=== PATIENT | male | born 1950 | race Caucasian/White ===

== ENCOUNTER → 2018-11-06 07:22 | Outpatient (CLI) | payer MEDICARE, OTHER, SELFPAY ==
[2017-03-04 06:50] VITALS: BMI 24.5
--- NOTE | 2018-11-06 07:45 | MRI_ITS ---
STUDY: MRA OF THE HEAD WITHOUT CONTRAST REASON FOR EXAM: Male, 67 years old. dizziness x 2 years, concern for basal ganglia hematoma TECHNIQUE: 3-D ckbe-[id number]-htknak (TOF) imaging was performed with MIPs. The study was performed unenhanced. COMPARISON: None. FINDINGS: Normal bilateral petrous carotid arteries. Normal right cavernous carotid artery with a normal supraclinoid bifurcation. Normal left cavernous carotid artery with a normal supraclinoid bifurcation. Normal right A1 segments of the anterior cerebral artery. Normal left A1 segments of the anterior cerebral artery. Normal intact anterior communicating artery (ACOM). Normal bilateral A2 segments of the anterior cerebral arteries. Normal right M1 and M2 segments of the middle cerebral arteries, with a normal M1 bifurcation. Normal left M1 and M2 segments of the middle cerebral arteries, with a normal M1 bifurcation. Normal right posterior communicating artery (PCOM). Normal left posterior communicating artery (PCOM). Normal bilateral vertebral arteries. Normal basilar artery with a normal basilar bifurcation. The visualized bilateral superior cerebellar (SCA) arteries are normal. Normal bilateral P1, P2 and visualized P3 segments of the posterior cerebral arteries. There is no demonstrated aneurysm of the knik of Mccabe. There is no major vessel occlusion or hemodynamically significant stenosis. MRI/MRA Head ONLY without Contrast IMPRESSION: Normal MRA of the head Electronically Signed: Tim Bledsoe MD at 9:05 EDT Tel , Service support ,
--- NOTE | 2018-11-06 07:45 | MRI_ITS ---
STUDY: MRI BRAIN WITHOUT CONTRAST REASON FOR EXAM: Male, 67 years old. dizziness x 2 years, concern for basal ganglia hematoma. TECHNIQUE: Standardized multiplanar fat and water weighted pulse sequences were obtained. COMPARISON: None. FINDINGS: Normal size of the ventricles and extra-axial spaces for the patient's age. Normal white matter tracts of the supratentorial brain. There is 1.4 x 1.6 cm left basal ganglia T1 hyperintense lesion. There is no significant surrounding vasogenic edema. Normal thalami. There is no extra-axial fluid accumulation. Normal flow voids within the major intracranial circulation suggesting patency by spin echo criteria. Normal sella turcica, pituitary gland, infundibular stalk, optic chiasm and hypothalamus. Normal tectal plate and pineal gland. Normal midbrain, jessica and medulla. Normal cerebellum. Normal basal cisterns. There is moderate paranasal sinus disease. MRI/Brain without Contrast IMPRESSION: 1.6 cm left basal ganglia lesion. Leading differential consideration is hematoma. CT follow-up 4-6 weeks is recommended. Electronically Signed: Tim Bledsoe MD at 11:18 EDT Tel , Service support ,
--- NOTE | 2018-11-06 10:02 | CDU_ITS ---
Reason For Study: Dizziness Rt. Velocities/BP Lt. Velocities/BP Prox CCA 96.9/13.4 cm/sec. Prox CCA 77.7/15.1 cm/sec. Mid CCA 87.8/18.6 cm/sec. Mid CCA 79/18.8 cm/sec. Dist CCA 74.7/20 cm/sec. Dist CCA 67.9/16.3 cm/sec. Prox ICA 40.9/15.4 cm/sec. Prox ICA 56/15.4 cm/sec. Mid ICA 60.7/22 cm/sec. Mid ICA 44.7/18.2 cm/sec. Dist ICA 52.1/21.7 cm/sec. Dist ICA 52/20.5 cm/sec. Rt. ICA/CCA = 0.7. Lt. ICA/CCA = 0.7. Prox ECA 79.9/9.5 cm/sec. Prox ECA 72.9/11.3 cm/sec. Rt. Vert. 26.9/7.7 cm/sec. Lt. Vert. 42.1/15.1 cm/sec. Right Extracranial There is intimal thickening but no significant atherosclerotic plaque noted in the right common carotid artery. There is homogeneous, smooth atherosclerotic plaque noted in the right internal carotid artery. There is intimal thickening but no significant atherosclerotic plaque noted in the right external carotid artery. Antegrade flow is noted in the right vertebral artery. Left Extracranial There is intimal thickening but no significant atherosclerotic plaque noted in the left common carotid artery. There is intimal thickening but no significant atherosclerotic plaque noted in the left internal carotid artery. There is intimal thickening but no significant atherosclerotic plaque noted in the left external carotid artery. Antegrade flow is noted in the left vertebral artery. Procedure Carotid Duplex 39869. Exam performed in department. Interpretation Summary There is < 50 % stenosis in the bilateral extracranial ICAs (internal carotid artery) based on velocity criteria. There is antegrade flow in bilateral vertebral arteries. Ordering Physician: Pooja Chung Referring Physician: GIACOMO Herzog M.D. Performed By: Taya Mcgraw RVT
== END ==
PROVIDERS: Family Provider Family Medicine; PCP Family Medicine; Referring Provider Psychiatry & Neurology Neurology; Visit Provider Psychiatry & Neurology Neurology
DX: R42 Dizziness and giddiness (principal); R26.9 Unspecified abnormalities of gait and mobility
CPT/HCPCS: 70544; 70551; 93880

== ENCOUNTER → 2018-11-27 11:22 | Outpatient (CLI) | payer MEDICARE, OTHER, SELFPAY ==
[2017-03-04 06:50] VITALS: BMI 24.5
--- NOTE | 2018-11-27 11:28 | CT_ITS ---
STUDY: CTA OF THE BRAIN REASON FOR EXAM: Male, 67 years old. 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 RADIATION DOSAGE (If Supplied By Facility): CTDIvol = ( 28.57 ) mGy, DLP = ( 1141.60 ) mGycm TECHNIQUE: CT angiography was performed with a multi-detector CT scanner. Data acquisition was obtained from the skull base through the vertex following intravenous administration of IV Isovue 370 100mL. MIP images were reconstructed from the axial data set. Post-processing of the angiographic images was performed, with multiplanar reformation and 3D reconstruction. Individualized dose optimization techniques were used for this CT. COMPARISON: None. FINDINGS: The pre and post contrast CT images of the head were obtained and reviewed. The jessica, medulla, and cerebellum appear to be normal. ?The cerebral hemispheres appear essentially normal. 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 No enhancing masses or lesions are seen. Bone scanning windows were reviewed and show the inner and outer tables of the skull to be intact. The frontal, ethmoid, maxillary, and sphenoid sinuses are normal. Post contrast CTA images were then reviewed. Posterior Cerebral Circulation: The V4 segments of the vertebral arteries are normal bilaterally. The basilar artery is normal. . The anterior superior cerebellar arteries are seen at their origins and are normal. The P1, P2, and P3 segments of the right and left posterior cerebral arteries are normal. Anterior Cerebral Circulation: The cavernous and supraclinoid carotid arteries are normal. The A1 segments of the right and left anterior cerebral arteries are normal. The anterior communicating artery are normal. The M1 segments of the right and left cerebral arteries are normal. The bifurcations of the middle cerebral arteries are normal. Cerebral Venous Circulation: The superior sagital sinus is normal. The inferior sagital sinus is normal. The internal cerebral veins, Great Vein of Jarod, straight sinus, and torcula are normal. The transverse sinuses and sigmoid sinuses are normal. CT/CTA Head W/WO Contrast IMPRESSION: An old infarct is noted involving the head of the cardiac nucleus on the left in this otherwise normal CTA of the head. Electronically Signed: Maikel Ryan, at 13:22 EDT Tel , Service support ,
[2018-11-27 11:40] LABS: CREATININE FINGERSTICK 0.9 mg/dL (0.70-1.30); EGFR FINGERSTICK > 60.0000 mL/min (>60)
== END ==
PROVIDERS: Family Provider Family Medicine; PCP Family Medicine; Referring Provider Psychiatry & Neurology Neurology; Visit Provider Psychiatry & Neurology Neurology
DX: G25.9 Extrapyramidal and movement disorder, unspecified (principal)
CPT/HCPCS: 70496; Q9967

== ENCOUNTER → 2018-12-01 15:25 | Outpatient (CLI) | payer MEDICARE, OTHER, SELFPAY ==
--- NOTE | 2018-12-01 15:28 | MRI_ITS ---
STUDY: MRI BRAIN WITH CONTRAST REASON FOR EXAM: Male, 67 years old. Basal ganglia lesion TECHNIQUE: Standardized multiplanar fat and water weighted pulse sequences were obtained. IV Dotarem 13 was administered for the contrast portion of the examination. COMPARISON: November 15, 2018 FINDINGS: Comparison with prior study again demonstrates presence of focal lesion within the left basal ganglia demonstrating foci of increased signal intensity likely representing subacute hemorrhage as well as porencephalic dilatation of the frontal horn of left lateral ventricle. There is no enhancement of the lesion following contrast administration. The size of the lesion is not changed since prior exam MRI/Brain WITH Contrast IMPRESSION: Stable appearance to left basal ganglia without contrast enhancement following contrast administration Electronically Signed: Jhonathan Medellin MD at 16:56 EDT , Service support ,
== END ==
PROVIDERS: Family Provider Family Medicine; PCP Family Medicine; Referring Provider Psychiatry & Neurology Neurology; Visit Provider Psychiatry & Neurology Neurology
DX: G25.9 Extrapyramidal and movement disorder, unspecified (principal)
CPT/HCPCS: 70552; A9575

== ENCOUNTER → 2018-12-04 09:13 | Outpatient (CLI) | payer MEDICARE, OTHER, SELFPAY ==
[2017-03-04 06:50] VITALS: BMI 24.5
[2018-12-04 11:20] LABS: Hemoglobin A1c 5.6 % (4.2-6.3)
[2018-12-04 11:25] LABS: Cholesterol 187 mg/dL (200); High Density Lipoprotein 80 mg/dL; Triglycerides 58 mg/dL; Very Low Density Lipoprotein 12 mg/dL (5-40)
== END ==
PROVIDERS: Family Provider Family Medicine; PCP Family Medicine; Referring Provider Psychiatry & Neurology Neurology; Visit Provider Psychiatry & Neurology Neurology
DX: E78.5 Hyperlipidemia, unspecified (principal); E11.9 Type 2 diabetes mellitus without complications; Z86.73 Personal history of transient ischemic attack (TIA), and cerebral infarction without residual deficits
CPT/HCPCS: 36415; 80061; 83036

== ENCOUNTER → 2018-12-10 20:04 | Outpatient (CLI) | payer MEDICARE, OTHER, SELFPAY | PROVIDERS: Family Provider Family Medicine; PCP Family Medicine; Referring Provider Nurse Practitioner Family; Visit Provider Nurse Practitioner Family | DX: G47.33 Obstructive sleep apnea (adult) (pediatric) (principal) | CPT/HCPCS: 95810 ==

== ENCOUNTER → 2018-12-22 14:00 | Outpatient (CLI) | payer MEDICARE, OTHER, SELFPAY ==
[2017-03-04 06:50] VITALS: BMI 24.5
--- NOTE | 2018-12-22 14:03 | ECHOD_ITS ---
Reason For Study: CVA Procedure This was a 2D Doppler, Color Flow transthoracic echocardiogram. The exam was of adequate technical quality. Exam performed in department. Left Ventricle Normal LV size. Apical false tendon noted. Left ventricular systolic function is normal. The estimated ejection fraction is 55 %. No evidence for diastolic dysfunction. No regional wall motion abnormalities noted. Right Ventricle Normal RV size. Normal systolic function. Atria Normal left atrium. Normal right atrium. Positive agitated saline contrast study for right to left interatrial shunt compatible with small PFO versus ASD. Mitral Valve There is no mitral annular calcification. Mild (1+) mitral valve insufficiency. Tricuspid Valve Normal tricuspid valve. Trivial tricuspid valve insufficiency. Right ventricular systolic pressure estimated to be 24 mmHg. Aortic Valve Trisinus/trileaflet aortic valve. Normal aortic valve. Pulmonic Valve The pulmonic valve is not well visualized. Trivial pulmonic valve insufficiency. Great Vessels Normal sized aortic root. Pericardium/Pleural No pericardial effusion. Medication 22 gauge I.V. with prn adaptor inserted into right arm. Performed a rapid injection of agitated mix of 9 cc saline and 1cc air to assess for atrial septal defect. MMode/2D Measurements & Calculations LVIDd: 4.3 cm IVSd: 0.84 cm Ao root diam: 3.2 cm LVIDs: 3.1 cm LVPWd: 0.80 cm RVDd: 3.7 cm FS: 28.7 % LAV(MOD-bp): 44.0 ml LA A4 area: 14.0 cm2 LA dimension(2D): 3.6 cm LAV(MOD-bp) Indexed: 24.2 ml/m2 LAV(MOD-sp2): 51.6 ml LAV(MOD-sp4): 35.3 ml RA A4 area: 11.6 cm2 Doppler Measurements & Calculations MV E max balta: 44.2 cm/sec Lat Peak E' Balta: 3.5 cm/sec Med Peak E' Balta: 3.4 cm/sec MV A max balta: 75.9 cm/sec E/E' lat: 12.7 E/E' med: 12.9 MV E/A: 0.58 Ao V2 max: 122.2 cm/sec LV V1 max: 109.1 cm/sec PA V2 max: 109.6 cm/sec Ao max P.0 mmHg LV V1 max P.8 mmHg TR max balta: 230.0 cm/sec TR max P.2 mmHg Interpretation Summary Left ventricular systolic function is normal. The estimated ejection fraction is 55 %. Apical false tendon noted. Mild (1+) mitral valve insufficiency. Trivial tricuspid valve insufficiency. Trivial pulmonic valve insufficiency. Right ventricular systolic pressure estimated to be 24 mmHg. No evidence for diastolic dysfunction. Positive agitated saline contrast study for right to left interatrial shunt compatible with small PFO versus ASD. Ordering Physician: Wanda Alexander Referring Physician: Wanda Alexander Performed By: Crystal Hammer RDCS
== END ==
PROVIDERS: Family Provider Family Medicine; PCP Family Medicine; Referring Provider Nurse Practitioner Family; Visit Provider Nurse Practitioner Family
DX: Z86.73 Personal history of transient ischemic attack (TIA), and cerebral infarction without residual deficits (principal); I48.91 Unspecified atrial fibrillation; G47.33 Obstructive sleep apnea (adult) (pediatric)
CPT/HCPCS: 93306; A4216

== ENCOUNTER → 2018-12-23 09:03 | Outpatient (CLI) | payer MEDICARE, OTHER, SELFPAY ==
--- NOTE | 2018-12-23 13:09 | NEURO ---
NCS and/or EMG Patient Report Ordering Doctor: Pooja Chung DATE OF SERVICE: 12/23/18 Sundeep Vora is a 68-year-old male who presents for electrodiagnostic testing of the right upper and right lower limb. He reports a primary complaint of dizziness. He does report a history of a remote CVA. Electrodiagnostic findings: Right median motor nerve demonstrates prolonged distal latency with normal amplitude and conduction velocity. Mildly prolonged right median sensory latency at the wrist. Right ulnar motor responses within normal limits. Normal right peroneal and tibial motor responses. Sensory responses in the right ulnar, right radial, right superficial peroneal and right sural nerves are within normal limits. Normal median right median, right ulnar, right tibial and right peroneal F wave. On needle EMG, all muscles tested in the right upper and right lower limb as well as the cervical and lumbar paraspinals showed no evidence of denervation with normal motor unit action potentials. Electrodiagnostic assessment: This is an abnormal study. 1. 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 Patient does not complain of any symptoms related to the right hand. 2. There is no electrodiagnostic evidence for polyneuropathy. 3. There is no electrodiagnostic evidence for cervical or lumbar radiculopathy. 4. There is no electrodiagnostic evidence for myopathy. If there are any further questions, please do not hesitate to contact me.
== END ==
PROVIDERS: Family Provider Family Medicine; PCP Family Medicine; Referring Provider Psychiatry & Neurology Neurology; Visit Provider Psychiatry & Neurology Neurology
DX: R26.89 Other abnormalities of gait and mobility (principal); R42 Dizziness and giddiness
CPT/HCPCS: 95886; 95913

== ENCOUNTER 2019-01-05 14:00 | Outpatient (RCR) | payer MEDICARE, OTHER, SELFPAY ==
[2017-03-04 06:50] VITALS: BMI 24.5
--- NOTE | 2018-11-30 09:34 | HP.PTEVAL ---
Patient's Visit Information ADRI LOPEZ is a 67 year old M referred to Physical Therapy by ARYA Rivers with a diagnosis of Dizziness and balance issues. Date of Evaluation: 11/30/18 Physical Therapist: SANGEETA Rinaldi - Visit Plan Frequency: 1-2x /Week Duration: 2 Months Plan: 1-2X/ week for progressive VOR exercises, vestibular inputs, testing on NeuroCom, high level progressive balance exercises involving foam and head movements. - Subjective Findings: Pt has been kind of dizzy. It was 15-20 years ago he had BPPV but they do not think that it is that at this point. It was off and on and now he feels dizzy all the time for the last year. It is bad at night with walking and he is staggering. When he gets up he feels that he can not focus and is not balanced. They have been doing a lot of brain tests with another MRI tomm with contrast.... and had an MRI around ear area. They did blow flow test already and it was negative. On the MRI they saw a spot.... but did not think anything was significant. He is depressed about his dizziness and has to focus and takes up his brain power. Only on occ he has to stop doing what he is doing due to dizziness. When he turns his head the objects around him moves a little bit... about a second off. He has no MERCHANT. Sitting without moving his head he feels that he can not focus and he has to move his eyes back to the object. They ruled out heart..... PT is retired and did field and greenhouse work. They checked him for BPPV and it was negative.... - Objective -Hallpike B for dizziness or nystagmus. Gait: Walks with veering to the Right and almost as if he was constantly correcting veering to the R side. FGA: 16. CATSIB: 89. SKEW DEVIATION was negative B. Head Thrust TEST: + to the L (worse with head to the L but occ slight corrective saccade on the R).... Dynamic visual Acuity: 10/30 with head shaking and could read 10/10 with no head movement/base line (5 lines different). VOR X 1 in vertical and horizontal....slight dizziness ( baseline dizziness) (maybe a pit in his stomach)... had to move head slow for 1/4 turns due to object being blurry and seeing double. - Balance Scores Functional Gait Assessment Score: 16 % Disability: 46.6700 CATSIB Score (Max score 120 seconds): 89 - Goals Goal 1:: I HEP Goal Time Frame: 4-6 Weeks Goal 2:: Increase CATASIB to 100/120 to decrease fall risk. Goal Time Frame: 4-6 Weeks Goal 3:: Test pt on the NeuroCOM Goal Time Frame: 4-6 Weeks Goal 4:: Be able to subjectivly have decreased dizziness/blurriness with ADL's. Goal Time Frame: 4-6 Weeks - Rehabilitation Potential Rehabilitation Potential: Good - Anticipated Interventions Patient/Client Instruction: Educate patient on: Condition, Plan of Care For the Purpose of:: To improve muscle performance and motor function, To improve ability to perform ADL's, To increase tolerance to activity/condition/position, To improve performance and independence with ADL's, To improve ability of physical actions for home/community/work/leisure, To improve health of tissue, To improve balance, To improve safety with gait Therapeutic Exercise to Include: Strength training, Balance training, Gait and locomotor training, via Neurocom Balance Mas For the Purpose of:: To improve nutrient delivery to tissue, To improve muscle performance and motor function, To improve ability to perform ADL's, To improve performance and independence with ADL's, To decrease level of supervision to perform tasks, To improve ability of physical actions for home/community/work/leisure, To improve gait and locomotor functions, To improve balance, To improve safety with gait Functional Training to Include: Gait training For the Purpose of:: To improve safety Thank you for the opportunity to evaluate your patient. For Medicare and Medicare HMO plans, please review the plan of care and approve it. It will need to be FAXED BACK to us at [phone] for Medicare purposes. For Medicare only, by signing this I certify the plan of care. Please let me know if there are questions or concerns regarding this plan of care. Physician Signature: Date:
--- NOTE | 2018-12-07 14:25 | HP.PTCOM_ITS ---
PT Communication Note 12/07/[address] Wanda Alexander, [facility] , Thank you for the referral of Brain Shawnee Vora to our clinic with diagnosis of d barry. He was tested on our NeuroCom system today and enclosed are the patients test results> On the Sensory Organization Test ( SOT) his overall composite score is below age related norm at a score of 42. He had trouble with his vestibular systems to the point that during the test, the therapist had to stop the patient from falling fw standing on an uneven surface with his eyes closed. It seems that he was unable to sense himself falling. He had a slight deficit with the use of his visual system as well to help him maintain his balance. The pt is more ankle dominant with his strategy analysis which is higher level and his center of gravity alignment is within normal limits. The pt had normal overall reaction time on the Motor Control test (MCT). The pt had normal ability to weight shift on the Limits of Stability Test (LOS) At this point in time we will see Brain to work on vestibular inputs as well as visual inputs. Sincerely, Janis Espinoza, SANGEETA Contact Information
--- NOTE | 2019-02-01 10:23 | HP.SP.DC_ITS ---
ST Discharge Summary - Discharged: Discharge: Sundeep Vora is discharged from speech therapy at [facility] as of 01/05/19. He initially was evaluated on 12/15/18 with speech therapy recommended weekly which he completed for 3 weeks. He made excellent progress in that time frame. His goals focused on dividing attention and word finding deficits. At the last session, he exhibited no word finding deficits and reported none at home. He was able to complete two tasks such as hold a conversation and continue a card game without difficulty. He reported that he felt he had no deficits and he requested discharge. A copy of this discharge summary will be sent to her referring physician.
== END 2019-01-05 19:00 | disposition home or self-care (01) ==
LOC: SP 14:00
PROVIDERS: Family Provider Family Medicine; PCP Family Medicine; Referring Provider Nurse Practitioner Family; Visit Provider Nurse Practitioner Family
DX: R42 Dizziness and giddiness (principal); R26.9 Unspecified abnormalities of gait and mobility; R41.841 Cognitive communication deficit; Z86.73 Personal history of transient ischemic attack (TIA), and cerebral infarction without residual deficits
CPT/HCPCS: 92507; 92523; 97110; 97162; 97750

== ENCOUNTER → 2019-01-27 20:00 | Outpatient (CLI) | payer MEDICARE, OTHER, SELFPAY | PROVIDERS: Family Provider Family Medicine; PCP Family Medicine; Referring Provider Nurse Practitioner Family; Visit Provider Nurse Practitioner Family | DX: G47.33 Obstructive sleep apnea (adult) (pediatric) (principal) | CPT/HCPCS: 95811 ==

== ENCOUNTER → 2019-07-20 09:12 | Outpatient (CLI) | payer MEDICARE, OTHER, SELFPAY ==
[2019-01-20 12:39] VITALS: BMI 24.4
--- NOTE | 2019-07-20 09:18 | MRI_ITS ---
STUDY: MRI BRAIN WITH AND WITHOUT CONTRAST REASON FOR EXAM: Male, 68 years old. Vertigo, compare to prev mri, area left basal ganglia TECHNIQUE: Standardized multiplanar fat and water weighted pulse sequences were obtained. IV Dotarem 14ml was administered for the contrast portion of the examination. COMPARISON: 12/01/2018 FINDINGS: Normal size of the ventricles and extra-axial spaces for the patient''s age. Normal white matter tracts of the supratentorial brain. There is no evidence for recent intracranial ischemia or other cause of cytotoxic edema on diffusion weighted imaging (DWI). Normal T2* images of the brain without demonstrated susceptibility artifact. There is no demonstrated hemosiderin stain. There is no change in 1 x 2 cm heterogeneous but predominantly T1 and T2 hyperintense lesion of the anterior aspect of the left putamen possibly consistent with a chronic hematoma or vascular malformation. However, no obvious enlarged feeding artery or draining vein is noted. Normal thalami. There is no extra-axial fluid accumulation. Normal flow voids within the major intracranial circulation suggesting patency by spin echo criteria. Normal venous enhancement. There is no enhancing intra-axial or extra-axial abnormality. Normal sella turcica, pituitary gland, infundibular stalk, optic chiasm and hypothalamus. Normal tectal plate and pineal gland. Normal midbrain, jessica and medulla. Normal cerebellum. Normal basal cisterns. Normal bilateral temporal bones. Normal bilateral internal auditory canals. No demonstrated orbital abnormality, within the constraints of a routine brain study. Normal visualized paranasal sinuses. Normal calvarium and skull base. Normal visualized soft tissue structures. Normal visualized upper cervical spine. 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 Electronically Signed: Alberto Gomez MD at 11:11 EDT Tel , Service support ,
[2019-07-20 09:40] LABS: CREATININE FINGERSTICK 0.9 mg/dL (0.70-1.30); EGFR FINGERSTICK > 60.0000 mL/min (>60)
== END ==
PROVIDERS: PCP Family Medicine; Referring Provider Psychiatry & Neurology Neurology; Visit Provider Psychiatry & Neurology Neurology
DX: R42 Dizziness and giddiness (principal)
CPT/HCPCS: 70553; A9575

== ENCOUNTER 2020-08-22 05:24 | Day surgery (SDC) | payer MEDICARE, OTHER, SELFPAY ==
[2020-08-10 08:54] VITALS: BMI 24.4
[2020-08-22] VITALS (11 sets, daily range): BP systolic 100–143; BP diastolic 75–98; PULSE 47–54; RESP 14–16; TEMP 36.2–36.6; O2SAT 96–100; BMI 25.3
--- NOTE | 2020-08-22 | GASB_PTH ---
PATIENT: ADRI LOPEZ LOC: [facility] U#:[id number] AGE/SX: 69/M ROOM: RE08/22/[address]: Dr. Anthony Herzog MD : 1950 BED: DIS: 08/22/2020 SPEC #: [id number] RECD: 08/22/20 12:10 STATUS: PADILLA FREDY #: [id number] GREG: 08/22/20 00:[address]: Anthony Herzog DEPT: SURGICAL PATHOLOGY RECD BY: Ambrocio Marte ENTERED: 08/22/20 12:10 SP TYPE: Gastric Bx OTHR DR: Dr. 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 Antrum biopsy for histo and H. pylori, B ? Distal esophagus biopsy MICROSCOPIC DIAGNOSIS A. Gastric antrum, biopsy: Minimal chronic inflammation. B. Distal esophagus, biopsy: Focal changes of reflux. Chronic inflammation. Focal goblet cell metaplasia. No evidence of dysplasia. See comment. AM:nestor 08/23/2020 COMMENT A. The results of immunohistochemistry for Helicobacter pylori will be reported separately ([id number]). B. Alcian blue/PAS stain with matched control supports the above diagnosis. MICROSCOPIC DESCRIPTION Slides are reviewed. GROSS DESCRIPTION A - Received in fixative is one container labeled with the patient's name and designated antrum biopsy. The specimen consists of one irregular fragment of light williamson soft tissue that measures 0.2 x 0.2 x 0.1 cm. The specimen is totally submitted in one cassette. B - Received in fixative is one container labeled with the patient's name and designated distal esophagus biopsy. The specimen consists of multiple irregular fragments of light williamson soft tissue that in aggregate measure 1.5 x 0.8 x 0.1 cm. The specimen is totally submitted in one cassette. / AM:nestor 08/22/20 TC:3 CPT: 12364 x2, 35439
--- NOTE | 2020-08-22 06:01 | PCM.HP.BLA ---
History and Physical Date of Admission: 08/22/20 Intake Visit Reasons: Blood in stool Chief Complaint: blood in stool Rn Wellness Required: No Is patient in pain?: No Allergies No Known Allergies Allergy (Verified 08/10/20 08:54) Medications ibuprofen 200 mg PO Q4H PRN PRN 06/30/14 [History Confirmed 08/10/20] PFSH Medical History (Updated 08/10/20 @ 09:[address] Anthony Herzog MD) Dizziness GERD (gastroesophageal reflux disease) History of CVA (cerebrovascular accident) Surgical History History of fundoplication History of herniorrhaphy History of repair of rotator cuff Family History (Updated 08/10/20 @ 09:01 by Lakesha Cabrera) Father Heart disease Hypertension High cholesterol Colon cancer Social History Smoking Status: Never smoker second hand exposure: No alcohol intake: current alcohol intake frequency: 0-2 drinks per day Alcohol type: beer substance use type: does not use caffeine: Yes what type of physical activity do you participate in: walking, running, bicycling and weight training frequency: 3-4 times per week seatbelt use: always HPI HPI HPI: ADRI LOPEZ, is a 69 M who presents to the office today for ongoing surgical consultation regarding a personal history of Wahl's esophagus. I assisted the patient previously with an extensive upper GI work-up for Wahl's and reflux. However in a vacation absence Dr. Alexandr Farris proceeded with the laparoscopic Rock fundoplication. The patient currently does not require any reflux medicines. His previous colonoscopies were in 2011 and in 2018. No polyps were identified. He did have extensive diverticulosis. His family history notable that his father had colon cancer in his 60s. The patient reports that rarely intermittently he will have some bright red rectal bleeding but this has been intermittent for multiple years. He attributes this to intermittent symptomatic hemorrhoids. He otherwise has had no abdominal pain good appetite good activity level and he otherwise feels unremarkable. His most recent esophagogastroduodenoscopy was March 04, 2017. That time he did have short segment 1 cm Wahl's but fortunately there was no dysplasia. He returns at this time for anticipated follow-up upper endoscopy. ROS General General: No weight change, appetite, fatigue, colon cancer, breast cancer or weakness HEENT HEENT: No difficulty swallowing, eye injury, eye surgery, swollen glands or hoarseness Endo Endocrine: No thyroid disease, diabetes mellitus, thyroid cancer, Hair loss, heat intolerance or cold intolerance Skin Skin: No rash or changing moles Breast Breast: No left breast lump, right breast lump, nipple discharge, breast pain, abnormal mammogram, abnormal US or breast enlargement Musc Musculoskeletal: No back problems, arthritis, rheumatoid arthritis, gout or joint pain Cardio Cardiovascular: No murmur, pacemaker, heart disease, atrial fibrillation, high blood pressure, heart attack, heart stent, palpitations, shortness of breat with exertion or chest pain Psych Psychiatric: No depression, anxiety or hearing voices Resp Respiratory: No shortness of breath, No sleep apnea, No cough, No COPD, No asthma, No emphysema and No wheezing Gastro Gastrointestinal: No abdominal pain, No nausea or vomiting, No diarrhea, No constipation, No blood in stool, No acid reflux, No hemorrhoids, No ulcers, No gallbladder problem and No black,tarry stools Rashad Hematologic: No blood thinners, No blood disorders, No bleeding, No anemia and No blood clots Neuro Neurologic: No system reviewed and no additional complaints, except as documented, No as per HPI, No abnormal gait, No abnormal hearing, No abnormal movements, No abnormal speech, No behavioral changes, No burning sensations, No confusion, No convulsions, No disequilibrium, No dizziness, No localized weakness, No frequent falls, No headache(s), No lack of coordination, No loss of vision, No memory loss, No numbness, No other visual disturbances, No radicular pain, No restless legs, No sensory deficit, No syncope, No tingling, No tremor(s), No weakness and No other Exam Const General: cooperative, healthy appearing, comfortable and no acute distress Nutritional Appearance: average body habitus Orientation: alert and awake [facility] Head: normal to inspection Resp Effort & Inspection: normal respiratory effort Auscultation: clear to auscultation bilaterally Cardio Rate: regular rate Rhythm: regular rhythm GI Palpation: soft and no hepatosplenomegaly Auscultation: normal bowel sounds Musc Cervical Spine: normal cervical lordosis Neuro General: patient alert and patient awake Extrem General: no calf tenderness bilaterally Psych Appearance: grossly normal COVID (Procedure Consent) Procedure Criteria Procedure Criteria: Yes Elective The surgeon/proceduralist and patient have discussed in detail the risk of exposure to and/or potential harm posed by the COVID-19 virus with having a surgery/procedure at this time versus the risk of delaying the surgery/procedure. It is not possible to know either the risk of delaying the surgery or procedure or chance of getting an infection with perfect accuracy, but a joint decision was made between the patient and the surgeon/proceduralist to proceed at this time with the scheduled surgery/procedure as indicated on the consent form. Assessment and Plan Assessment and Plan (1) History of Wahl's esophagus: Status: Acute (2) Family history of colon cancer in father: Status: Acute Plan Details Additional Comments: 69-year-old gentleman with a personal history of Wahl's esophagus without dysplasia. I recommend him an esophagogastroduodenoscopy with possible biopsy. He is aware the technique, benefit, risk, alternatives. I am sure we can accomplish this with IV sedation. The patient has a family history of colon cancer in his father. The patient has had 2 previous colonoscopies. Although it demonstrates extensive diverticulosis he personally has not had any polyps. He currently is essentially asymptomatic other than his chronic ongoing intermittent bright red bleeding consistent with hemorrhoids which she has had for multiple years. His screening colonoscopy would be due in February 2022 Copy: Dr. Juan Daniel Herzog, III Anthony Herzog M.D., F.A.C.S. I have re-examined the patient. There are no clinical changes since date of exam.
[2020-08-22] MEDS: Lactated Ringers 1,000 ML 100 ML IV (06:05)
--- NOTE | 2020-08-22 06:30 | IMM_PTH ---
PATIENT: ADRI LOPEZ LOC: EN U#:[id number] AGE/SX: 69/M ROOM: RE08/22/[address]: Dr. Anthony Herzog MD : 1950 BED: DIS: 08/22/2020 SPEC #: [id number] RECD: 08/22/20 12:43 STATUS: PADILLA FREDY #: [id number] GREG: 08/22/20 06:[address]: Anthony Herzog DEPT: IMMUNOHISTOCHEMISTRY RECD BY: Louise Fagan ENTERED: 08/22/20 12:44 SP TYPE: IMMUNO OTHR DR: Dr. Juan Daniel Herzog III, MD Tissues: A - Stomach, NOS B - Esophageal mucous membrane Procedures: H Pylori (initial) P53 (add) KI-67 (initial) PHYSICIAN & INSTITUTION [place] [id number] SPECIMEN INFORMATION: Tissue Source: A ? Antrum biopsy, B ? Distal esophagus biopsy Clinical Info: Wahl?s esophagus Specimen Number: [id number] A & B CPT code: 37877 x2, 61477 METHODOLOGY: Deparaffinized sections of prefer/formalin-fixed tissue or PAP/DQ stained slides are incubated with monoclonal/polyclonal antibodies/oligonucleotide probes. Localization is made via biotin free immunoperoxidase method. Appropriate controls are performed and reacted as expected. Results on target cell population are indicated in the following table: RESULTS: ANTIBODY / CLONE RESULT Block A H Pylori (polyclonal) negative Block B P53 (DO-7) negative Ki-67 (30-9) negative These tests were developed and their performance characteristics determined by [facility]. They may not have been cleared or approved by the U.S. Food and Drug Administration. The FDA has determined that such clearance or approval is not necessary. The above immunohistochemical/dualISH markers are ordered and reviewed by the pathologist. INTERPRETATION: A. Antrum biopsy: Negative for Helicobacter pylori organisms. B. Distal esophagus, biopsy: No evidence of dysplasia. AM:nestor 08/24/20
--- NOTE | 2020-08-22 06:55 | OP.EGD_ITS ---
Patient Name: Sundeep Vora Procedure Date: 08/22/2020 6:17 AM Date of : 1950 Age: 69 Procedure: Upper GI endoscopy Indications: Follow-up of Wahl's esophagus Providers: Anthony Herzog MD Referring MD: Juan Daniel Herzog Iii Medicines: Midazolam 3.5 mg IV, Meperidine 100 mg IV Patient Profile: This is a 69 year old male. Complications: No immediate complications. Procedure: Pre-Anesthesia Assessment: - Prior to the procedure, a History and Physical was performed, and patient medications and allergies were reviewed. The patient's tolerance of previous anesthesia was also reviewed. The risks and benefits of the procedure and the sedation options and risks were discussed with the patient. All questions were answered, and informed consent was obtained. Prior Anticoagulants: The patient has taken no previous anticoagulant or antiplatelet agents. ASA Grade Assessment: II - A patient with mild systemic disease. After reviewing the risks and benefits, the patient was deemed in satisfactory condition to undergo the procedure. After obtaining informed consent, the endoscope was passed under direct vision. Throughout the procedure, the patient's blood pressure, pulse, and oxygen saturations were monitored continuously. The gastroscope was introduced through the mouth, and advanced to the second part of duodenum. The upper GI endoscopy was accomplished without difficulty. The patient tolerated the procedure well. Moderate Sedation: Moderate (conscious) sedation was personally administered by the endoscopist. The following parameters were monitored: oxygen saturation, heart rate, blood pressure, and response to care. Total physician intraservice time was 15 minutes. Scope In: 6:42:02 AM Scope Out: 6:49:27 AM Total Procedure Duration Time 0 hours 7 minutes 25 seconds Findings: There were esophageal mucosal changes suspicious for short-segment Wahl's esophagus present at the gastroesophageal junction. The maximum longitudinal extent of these mucosal changes was 1 cm in length. Mucosa was biopsied with a cold forceps for histology in 4 quadrants. A prior Rock fundoplication was found at the gastroesophageal junction. Diffuse mildly erythematous mucosa without bleeding was found in the gastric antrum. Biopsies were taken with a cold forceps for histology. The examined duodenum was normal. Impression: - Esophageal mucosal changes suspicious for short-segment Wahl's esophagus. Biopsied. - A Rcok fundoplication was found. - Erythematous mucosa in the antrum. Biopsied. - Normal examined duodenum. Recommendation: - Discharge patient to home. - Resume previous diet. - Continue present medications. - Telephone my office for pathology results in 1 week. - Repeat upper endoscopy in 3 years for surveillance. Procedure Code(s): --- Professional --- 72770, Esophagogastroduodenoscopy, flexible, transoral; with biopsy, single or multiple 51876, 59, Moderate sedation services provided by the same physician or other qualified health care specialist performing the diagnostic or therapeutic service that the sedation supports, requiring the presence of an independent trained observer to assist in the monitoring of the patient's level of consciousness and physiological status; initial 15 minutes of intraservice time, patient age 5 years or older Diagnosis Code(s): --- Professional --- K22.70, Wahl's esophagus without dysplasia Z98.890, Other specified postprocedural states K31.89, Other diseases of stomach and duodenum CPT copyright 2017 [employer]. All rights reserved. The codes documented in this report are preliminary and upon pump house technician review may be revised to meet current compliance requirements. Anthony Herzog MD 08/22/2020 6:54:34 AM This report has been signed electronically. Number of Addenda: 0 Note Initiated On: 08/22/2020 6:17 AM
--- NOTE | 2020-08-22 06:55 | OP.CCLET_ITS ---
08/22/2020 Juan Daniel Herzog [address] [place] [address] Re : Upper GI endoscopy procedure for Sundeep Vora Dear Dr. Herzog This procedure was performed on Saturday, August 22, 2020. My impressions and recommendations are as follows: Impressions : - Esophageal mucosal changes suspicious for short-segment Wahl's esophagus. Biopsied. - A Rock fundoplication was found. - Erythematous mucosa in the antrum. Biopsied. - Normal examined duodenum. Recommendations : - Discharge patient to home. - Resume previous diet. - Continue present medications. - Telephone my office for pathology results in 1 week. - Repeat upper endoscopy in 3 years for surveillance. My findings are described in the full procedure note, which is enclosed. If I can be of further assistance, please feel free to contact me at Doctor phone number(s): Work: . Sincerely, Anthony Herzog MD 08/22/2020 6:54:34 AM This report has been signed electronically.
== END 2020-08-22 08:01 ==
LOC: EN 05:26 → AC 05:28
PROVIDERS: PCP Family Medicine; Referring Provider Family Medicine; Visit Provider Surgery
PROC: (CPT 43239; principal; 2020-08-22 06:25)
DX: K22.70 Barrett's esophagus without dysplasia (principal); K21.00 Gastro-esophageal reflux disease with esophagitis, without bleeding; K29.50 Unspecified chronic gastritis without bleeding; Z80.0 Family history of malignant neoplasm of digestive organs; Z98.890 Other specified postprocedural states; Z86.73 Personal history of transient ischemic attack (TIA), and cerebral infarction without residual deficits
CPT/HCPCS: 43239; 88305; 88313; 88341; 88342; 99152; 99153; J7120

== ENCOUNTER 2022-01-05 12:11 | Outpatient (CLI) | payer MEDICARE, OTHER, SELFPAY | END 2022-01-05 23:59 | disposition home or self-care (01) | LOC: LAB 12:14 → LABSPEC 12:15 | PROVIDERS: Visit Provider Otolaryngology | DX: J32.8 Other chronic sinusitis (principal) | CPT/HCPCS: 87070; 87077; 87186; 87205 ==

== ENCOUNTER 2023-02-18 05:28 | Day surgery (SDC) | payer MEDICARE, OTHER, SELFPAY ==
[2023-02-18] VITALS (15 sets, daily range): BP systolic 95–138; BP diastolic 57–91; PULSE 51–62; RESP 16–17; TEMP 36.3–36.4; O2SAT 96–100; BMI 22.8
--- OUTSIDE RECORDS SUMMARY | 2023-02-18 05:31 | XMS RPT_ITS | CCD ---
Author Name Unknown Address [address] [place] [address] Organization [facility] Care Team Providers Care Media Director Name Role Phone None, No PCP Unavailable Unavailable Magalys Scott MD Primary Care Provider Magalys Scott MD Primary Care Provider MAGALYS SCOTT Primary Care Unavailable MAGALYS SCOTT Attending Unavailable MAGALYS SCOTT Primary Care Unavailable Medications Completed/Discontinued Medications Medication Drug Class(es) Dates Sig (Normalized) Sig (Original) tadalafil 20 mg oral tablet (2 sources) Phosphodiesterase 5 Inhibitor Start: 10-15-2022 Tadalafil (CIALIS) 20 mg tab(s) Take 1 tablet by mouth as needed. 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, subcortical] Onset: 11-18-2018 11-18-2018 Chronic Anxiety disorders (1 source) Anxiety; Translations: [Anxiety disorder, unspecified] 10-15-2022 Chronic Esophageal disorders (5 sources) Wahl's esophagus; 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] Onset: 03-14-2014 Chronic Immunizations and screening for infectious disease (2 sources) Vaccination needed; Translations: [Encounter for immunization] Episodic Late effects of cerebrovascular disease (4 sources) Impairment of balance; Translations: [Other sequelae of cerebral infarction] Onset: 11-18-2018 Chronic Open wounds of extremities (1 source) Laceration of thumb; Translations: [Open wound of finger(s), without mention of complication] Episodic Other ear and sense organ disorders (3 sources) Bilateral hearing loss; Translations: [Unspecified hearing loss, bilateral] Onset: 03-19-2018 03-19-2018 Chronic Other screening for suspected conditions (not mental disorders or infectious disease) (3 sources) Patient encounter status; Translations: [Encounter for screening for malignant neoplasm of colon] 10-15-2022 Episodic Residual codes; unclassified (1 source) Obstructive sleep apnea syndrome; Translations: [Obstructive sleep apnea (adult) (pediatric)] 11-17-2022 Chronic Residual codes; unclassified (3 sources) Family history of malignant neoplasm of gastrointestinal tract; Translations: [Family history of malignant neoplasm of digestive organs] 11-13-2004 Episodic Spondylosis; intervertebral disc disorders; other back problems (1 source) Low back pain; Translations: [Midline low back pain without sciatica, unspecified chronicity] 11-17-2022 Episodic Results Test Name Value Interpretation Reference Range Facil ity Vital Signs Date Time Vital Sign Value Performing Clinician Faci lity 10-15-2022 09:57-0400 Diastolic blood pressure 68 mm[Hg] Magalys Scott MD Work Phone: [facility] 10-15-2022 09:57-0400 Systolic blood pressure 108 mm[Hg] Magalys Scott MD Work Phone: [facility] 10-15-2022 09:00-0400 Body height 166 cm Magalys Scott MD Work Phone: [facility] 10-15-2022 09:00-0400 Body temperature 98.6 [degF] Magalys Scott MD Work Phone: [facility] 10-15-2022 09:00-0400 Body weight 67.09 kg Magalys Scott MD Work Phone: [facility] 10-15-2022 09:00-0400 Heart rate 73 /min Magalys Scott MD Work Phone: [facility] 10-15-2022 09:00-0400 Respiratory rate 18 /min Magalys Scott MD Work Phone: [facility] 10-15-2022 09:00-0400 SaO2% (BldA) [Mass fraction] 98 % Magalys Scott MD Work Phone: [facility] 10-02-2021 09:44-0400 Diastolic blood pressure 72 mm[Hg] Magalys Scott MD Work Phone: [facility] 10-02-2021 09:44-0400 Systolic blood pressure 122 mm[Hg] Magalys Scott MD Work Phone: [facility] 10-02-2021 08:52-0400 Body height 167.6 cm Magalys Scott MD Work Phone: [facility] 10-02-2021 08:52-0400 Body weight 68.49 kg Magalys Scott MD Work Phone: [facility] 10-02-2021 08:52-0400 Heart rate 63 /min Magalys Scott MD Work Phone: [facility] 10-02-2021 08:52-0400 SaO2% (BldA) [Mass fraction] 97 % Magalys Scott MD Work Phone: [facility] 05-15-2020 13:49-0400 Body mass index (BMI) [Ratio] [facility] Encounters Encounter Date Encounter Type Care Provider Facility Start: 12-25-2022 End: 12-25-2022 ambulatory MAGALYS SCOTT Facility:[facility] Start: 12-25-2022 End: 12-25-2022 Nursing evaluation of patient and report Mi Nurse Work Phone: [facility] Procedures Date Procedure Procedure Detail Performing Clinician Start: 12-25-2022 INFLUENZA VACCINE, P RSV FREE, AGE 65+ YR, HIGH DOSE, QUADRIVALENT (FLUZONE HIGH-DOSE) Magalys Scott MD Work Phone: Start: 03-13-2020 Lipid 1996 panel - S sofia or Plasma Magalys Scott MD Work Phone: Start: 03-04-2017 Colonoscopy Magalys thurman MD Work Phone: Plan of Treatment Date Care Activity Detail Author Start: 06-05-2031 Urine microalbumin profile [facility] Start: 03-13-2025 Lipid 1996 panel - S sofia or Plasma Lipid Screening [facility] Start: 03-13-2025 LIPID SCREEN LIPID SCREEN [facility] Start: 10-16-2023 Shingrix Vaccine (1 of 2) Butts grix Vaccine (1 of 2) [facility] Immunizations Immunization Date Immunization Notes Care Provider Germania willishweta 12-25-2022 influenza (HD-IIV4) vaccine, age 65+ yr, high dose, quadrivalent, PF (FLUZONE HIGH-DOSE) Mi Nurse Work Phone: [facility] Work Phone: 10-02-2021 pneumococcal (PCV20) vaccine, 20 valent (PREVNAR 20) Magalys Scott MD Work Phone: [facility] 10-02-2021 pneumococcal Conjuga te, unspecified formulation Magalys Scott MD Work Phone: [facility] Work Phone: 06-04-2021 tetanus toxoid, redu alexandrea diphtheria toxoid, and acellular pertussis vaccine, adsorbed Magalys Scott MD Work Phone: [facility] 03-07-2020 influenza, high-dose , quadrivalent vaccine (FLUZONE HIGH DOSE QUADRIVALENT) Magalys Scott MD Work Phone: [facility] 03-07-2020 influenza virus vaccine, unspecified formulation Magalys Scott MD Work Phone: [facility] 11-03-2018 influenza, high dose seasonal, preservative-free Magalys Scott MD Work Phone: [facility] 03-19-2018 pneumococcal conjuga te vaccine, 13 valent Magalys Scott MD Work Phone: [facility] 01-15-2012 influenza virus vaccine, unspecified formulation Magalys Scott MD Work Phone: [facility] Work Phone: 01-15-2012 tetanus toxoid, redu alexandrea diphtheria toxoid, and acellular pertussis vaccine, adsorbed Magalys Scott MD Work Phone: [facility] Work Phone: Payers Date Payer Category Payer Medicare [id number] 2020 Unknown 2016 Medicare MEDICARE MEDICAR E A AND B [id number] 2016-Present [phone] [place] [address] Medicare [id number] 2016 Medicare [id number] Social History Date Type Detail Facility Start: 10-02-2021 [facility] Start: 10-02-2021 Tobacco use and exposure Smokeless tobacco non-user [facility] Start: 10-02-2021 End: 10-15-2022 Alcohol intake Current drinker of alcohol (finding) [facility] Start: 10-02-2021 End: 10-15-2022 Alcohol intake [facility] Work Phone: Start: 01-27-2012 Alcohol Comment moderate [facility] Start: 1950 [facility] Start: 09-22-2021 End: 10-02-2021 Exposure to SARS-CoV-2 (event) Not sure [facility] Start: 10-15-2022 Tobacco use panel [facility] Work Phone: Adult Depression Screening Assessment 0 [facility] Work Phone: Clinical Notes 01-27-2012 to 12-25-2022 Doris Greer LPN - 12/25/2022 10:56 AM Magalys Loera MD - 10/15/2022 8:59 AM Luh Bingham Ma - 10/02/2021 8:55 AM Jovani Scott MD - 10/02/2021 8:45 AM EDT Note Date & Type Note Facility 12-25-2022 Note HNO ID: [id number] Author: Doris Greer LPN Service: ? Author Type: ? Type: Progress Notes Filed: 12/25/2022 10:58 AM Note Text: Patient presents for Flu vaccine (will get shingles at pharmacy d/t insurance coverage). Denies any problems at this time. Tolerated injection well. Doris Greer LPN [facility] 12-25-2022 History of Present illness Narrative Patient presents for Flu vaccine (will get shingles at pharmacy d/t insurance coverage). Denies any problems at this time. Tolerated injection well. Doris Greer LPN documented in this encounter [facility] 10-15-2022 Note HNO ID: [id number] Author: Magalys Scott MD Service: ? Author Type: Physician Type: Progress Notes Filed: 11/17/2022 11:21 PM Note Text: This note was created using Targazymeriter. Subjective Adri Vora is a 71 year old male. HISTORY Adri Vora is a 71 year old gentleman here for yearly exam and follow up appointment. ?right side of jaw--Upper jaw has been tight. Lower jaw area. Has anxiety at times bot not severe/ Using CPAP. Use routinely. Considering [facility]. Back pain in lower back. When gets up. Doing stretching after gets up and goes downstairs. Is martial artist.Stopped planks. Still running. Getting ready for a race. Sometimes gets numb buttocks to lateral thigh while running but able to run through it and resolves. Due for colonoscopy. Maybe EGD since been about 2 to 3 years since last one. Asked about prostate cancer screening. Requested RX Cialis. Used before. Not sure if has HCDPOA or LW but surrogate decision maker is spouse Depression Screening 11/03/2018 10/02/2021 10/15/2022 PHQ-2 Score 1 1 0 Depression screening tool completed and reviewed. Based on score and interview, patient is not at risk for depression. Screening tool discussed with patient, and I recommended no further intervention at this time. PAST MEDICAL HISTORY Diagnosis Date Wahl's esophagus determined by endoscopy 03/14/2014 Diverticulosis of colon (without mention of hemorrhage) Diverticulosis Family history of malignant neoplasm of gastrointestinal tract GERD (gastroesophageal reflux disease) Inguinal hernia without mention of obstruction or gangrene, unilateral or unspecified, (not specified as recurrent) Sensorineural hearing loss, unilateral, left ear, with restricted hearing on the contralateral side Unspecified hemorrhoids without mention of complication Hemorrhoids Vertigo No current outpatient medications on file. No current facility-administered medications for this visit. ALLERGIES No Known Allergies FAMILY HISTORY Problem Relation Age of Onset Hypertension Father Colon Cancer Father 60 Heart Father Ischemic Heart Disease Father None Mother None Brother Social History Tobacco Use Smoking status: Never Smokeless tobacco: Never Substance Use Topics Alcohol use: Yes Alcohol/week: 30.0 standard drinks of alcohol Comment: moderate Drug use: No Review of Systems Objective BP 140/78 Pulse 73 Temp 37 ?C (98.6 ?F) Resp 18 Ht 166 cm (5' 5.35 ) Wt 67.1 kg (147 lb 14.4 oz) SpO2 98% BMI 24.35 kg/m? Last 5 Encounter Wt Readings: Date: Wt: 10/15/2022 67.1 kg (147 lb 14.4 oz) 10/02/2021 68.5 kg (151 lb) 06/04/2021 73.6 kg (162 lb 3.2 oz) 03/07/2020 75.3 kg (166 lb) 11/18/2018 71.7 kg (158 lb) No waist measurement recorded Estimated body mass index is 24.35 kg/m? as calculated from the following: Height as of this encounter: 166 cm (5' 5.35 ). Weight as of this encounter: 67.1 kg (147 lb 14.4 oz). Last 5 Encounter BP Readings: Date: BP: 10/15/2022 140/78 10/02/2021 122/72 06/04/2021 134/94 03/07/2020 106/68 11/18/2018 122/90 10/15/22 0900 10/15/22 0957 BP: 140/78 108/68 Pulse: 73 Resp: 18 Temp: 37 ?C (98.6 ?F) SpO2: 98% Weight: 67.1 kg (147 lb 14.4 oz) Height: 166 cm (5' 5.35 ) Physical Exam Vitals reviewed. Constitutional: Appearance: Normal appearance. HENT: Head: Normocephalic. Right Ear: Tympanic membrane, ear canal and external ear normal. Left Ear: Tympanic membrane, ear canal and external ear normal. Mouth/Throat: Mouth: Mucous membranes are moist. Pharynx: Oropharynx is clear. Eyes: Extraocular Movements: Extraocular movements intact. Conjunctiva/sclera: Conjunctivae normal. Cardiovascular: Rate and Rhythm: Normal rate and regular rhythm. Pulses: Normal pulses. Heart sounds: Normal heart sounds. Pulmonary: Effort: Pulmonary effort is normal. Breath sounds: Normal breath sounds. Abdominal: General: Abdomen is flat. There is no distension. Palpations: Abdomen is soft. There is no mass. Musculoskeletal: Cervical back: Normal range of motion. Skin: General: Skin is warm and dry. Neurological: General: No focal deficit present. Mental Status: He is alert and oriented to person, place, and time. Psychiatric: Attention and Perception: Attention and perception normal. Mood and Affect: Mood and affect normal. Speech: Speech normal. Behavior: Behavior normal. Thought Content: Thought content normal. Cognition and Memory: Cognition and memory normal. Judgment: Judgment normal. Most recent labs: Component Latest Ref Rng AND Units 03/13/2020 Protein, Total 6.3 - 8.0 g/dL 7.5 Albumin 3.9 - 4.9 g/dL 4.5 Calcium 8.5 - 10.2 mg/dL 9.8 Bilirubin, Total 0.2 - 1.3 mg/dL 0.7 Alkaline Phosphatase 38 - 113 U/L 71 AST 14 - 40 U/L 24 Glucose 74 - 99 mg/dL 83 BUN 9 - 24 mg/dL 22 Creatinine 0.73 - 1.22 mg/dL 1.01 Sodium 136 - 144 mmol/L 14 (more content not included)... [facility] 10-15-2022 History of Present illness Narrative This note was created using NoteWriter. Subjective Adri Vora is a 71 year old male. HISTORY Adri Vora is a 71 year old gentleman here for yearly exam and follow up appointment. ?right side of jaw--Upper jaw has been tight. Lower jaw area. Has anxiety at times bot not severe/ Using CPAP. Use routinely. Considering [facility]. Back pain in lower back. When gets up. Doing stretching after gets up and goes downstairs. Is martial artist.Stopped planks. Still running. Getting ready for a race. Sometimes gets numb buttocks to lateral thigh while running but able to run through it and resolves. Due for colonoscopy. Maybe EGD since been about 2 to 3 years since last one. Asked about prostate cancer screening. Requested RX Cialis. Used before. Not sure if has HCDPOA or LW but surrogate decision maker is spouse Depression Screening 11/03/2018 10/02/2021 10/15/2022 PHQ-2 Score 1 1 0 Depression screening tool completed and reviewed. Based on score and interview, patient is not at risk for depression. Screening tool discussed with patient, and I recommended no further intervention at this time. PAST MEDICAL HISTORY Diagnosis Date Wahl's esophagus determined by endoscopy 03/14/2014 Diverticulosis of colon (without mention of hemorrhage) Diverticulosis Family history of malignant neoplasm of gastrointestinal tract GERD (gastroesophageal reflux disease) Inguinal hernia without mention of obstruction or gangrene, unilateral or unspecified, (not specified as recurrent) Sensorineural hearing loss, unilateral, left ear, with restricted hearing on the contralateral side Unspecified hemorrhoids without mention of complication Hemorrhoids Vertigo No current outpatient medications on file. No current facility-administered medications for this visit. ALLERGIES No Known Allergies FAMILY HISTORY Problem Relation Age of Onset Hypertension Father Colon Cancer Father 60 Heart Father Ischemic Heart Disease Father None Mother None Brother Social History Tobacco Use Smoking status: Never Smokeless tobacco: Never Substance Use Topics Alcohol use: Yes Alcohol/week: 30.0 standard drinks of alcohol Comment: moderate Drug use: No Review of Systems Objective BP 140/78 Pulse 73 Temp 37 C (98.6 F) Resp 18 Ht 166 cm (5' 5.35 ) Wt 67.1 kg (147 lb 14.4 oz) SpO2 98% BMI 24.35 kg/m Last 5 Encounter Wt Readings: Date: Wt: 10/15/2022 67.1 kg (147 lb 14.4 oz) 10/02/2021 68.5 kg (151 lb) 06/04/2021 73.6 kg (162 lb 3.2 oz) 03/07/2020 75.3 kg (166 lb) 11/18/2018 71.7 kg (158 lb) No waist measurement recorded Estimated body mass index is 24.35 kg/m as calculated from the following: Height as of this encounter: 166 cm (5' 5.35 ). Weight as of this encounter: 67.1 kg (147 lb 14.4 oz). Last 5 Encounter BP Readings: Date: BP: 10/15/2022 140/78 10/02/2021 122/72 06/04/2021 134/94 03/07/2020 106/68 11/18/2018 122/90 10/15/22 0900 10/15/22 0957 BP: 140/78 108/68 Pulse: 73 Resp: 18 Temp: 37 C (98.6 F) SpO2: 98% Weight: 67.1 kg (147 lb 14.4 oz) Height: 166 cm (5' 5.35 ) Physical Exam Vitals reviewed. Constitutional: Appearance: Normal appearance. HENT: Head: Normocephalic. Right Ear: Tympanic membrane, ear canal and external ear normal. Left Ear: Tympanic membrane, ear canal and external ear normal. Mouth/Throat: Mouth: Mucous membranes are moist. Pharynx: Oropharynx is clear. Eyes: Extraocular Movements: Extraocular movements intact. Conjunctiva/sclera: Conjunctivae normal. Cardiovascular: Rate and Rhythm: Normal rate and regular rhythm. Pulses: Normal pulses. Heart sounds: Normal heart sounds. Pulmonary: Effort: Pulmonary effort is normal. Breath sounds: Normal breath sounds. Abdominal: General: Abdomen is flat. There is no distension. Palpations: Abdomen is soft. There is no mass. Musculoskeletal: Cervical back: Normal range of motion. Skin: General: Skin is warm and dry. Neurological: General: No focal deficit present. Mental Status: He is alert and oriented to person, place, and time. Psychiatric: Attention and Perception: Attention and perception normal. Mood and Affect: Mood and affect normal. Speech: Speech normal. Behavior: Behavior normal. Thought Content: Thought content normal. Cognition and Memory: Cognition and memory normal. Judgment: Judgment normal. Most recent labs: Component Latest Ref Rng & Units 03/13/2020 Protein, Total 6.3 - 8.0 g/dL 7.5 Albumin 3.9 - 4.9 g/dL 4.5 Calcium 8.5 - 10.2 mg/dL 9.8 Bilirubin, Total 0.2 - 1.3 mg/dL 0.7 Alkaline Phosphatase 38 - 113 U/L 71 AST 14 - 40 U/L 24 Glucose 74 - 99 mg/dL 83 BUN 9 - 24 mg/dL 22 Creatinine 0.73 - 1.22 mg/dL 1.01 Sodium 136 - 144 mmol/L 141 Potassium 3.7 - 5.1 mmol/L 4.8 Chloride 97 - 105 mmol/L 104 CO2 22 - 30 mmol/L 27 Anion Gap 9 - 18 mmol/L 10 ALT 10 - 54 U/L 24 eGFR- >60 eGFR-All Other Races . >60 WBC 3.70 - 11.00 k/uL 5.31 RBC 4.20 - 6.00 m/uL 4.91 Hemoglobin 13.0 - 17.0 g/dL 15.8 Hematocrit 39.0 - 51.0 % 48.8 MCV 80.0 - 100.0 fL 99.4 MCH 26.0 - 34.0 pG 32.2 MCHC 30.5 - 36.0 g/dL 32.4 RDW-CV 11.5 - 15.0 % 12.2 Platelet Count 150 - 400 k/uL 259 MPV 9.0 - 12.7 fL 9.7 Absolute nRBC <0.01 k/uL <0.01 Cholesterol, Total <200 mg/dL 195 Triglyceride <150 mg/dL 91 HDL Cholesterol >39 mg/dL 81 LDL Cholesterol <100 mg/dL 96 Non HDL Cholesterol <130 mg/dL 114 Fasting Time hrs 12 VLDL Cholesterol <30 mg/dL 18 TC:HDL Ratio <5.10 2.41 LDL:HDL Ratio <2.54 1.19 Assessment and Plan Encounter Diagnosis ICD-10-CM 1. Wahl's esophagus determined by endoscopy K22.70 CONSULT TO GENERAL SURGERY COMP METABOLIC PANEL CBC TSH BLD T4 FREE/FREE THYROX 2. Anxiety F41.9 COMP METABOLIC PANEL CBC TSH BLD T4 FREE/FREE THYROX 3. EMERALD on CPAP G47.33 Noted uses routinely. Considering evaluation for and management with [facility]. 4. Midline low back pain without sciatica, unspecified chronicity M54.50 COMP METABOLIC PANEL CBC TSH BLD T4 FREE/FREE THYROX Sometimes gets numbness while running but able to run through it and resolves.Monitor for now.PT,pain managment, or spine center referral as indcated 5. Colon cancer screening Z12.11 CONSULT TO GENERAL SURGERY 6. Prostate cancer screening Z12.5 PSA/PROSTSPECAG SCRN Reviewed recommendations.Discussed limitations of PSA 7. Encounter for screening for diabetes mellitus Z13.1 COMP METABOLIC PANEL Patient here for yearly exam and follow up. Above issues addressed with patient. Patient involved in shared decision making for management of medical issues. History and medications reviewed. [employer] updated as needed Refills and/or prescriptions taken care of and meds adjusted as indicated after reviewed history, exam and labs. Health Maintenance reviewed. Updated record and/or ordered tests as recorded. Encouraged on efforts at healthy diet and regular exercise and adequate sleep. I spent a total of 47 minutes on the date of the service which included preparing to see the patient, [id number] patient care, completing clinical documentation, performing a medically appropriate examination, counseling and educating the patient/family/caregiver, and ordering medications, tests, or procedures. Magalys Scott MD documented in this encounter [facility] 10-02-2021 Nurse Note Vision Screening Edited by: Wendy Bingham Ma Right eye Left eye Both eyes With correction 20/20 20/30 20/20 documented in this encounter [facility] 10-02-2021 History of Present illness Narrative This note was created using Targazymeriter. Subjective Adri Vora is a 70 year old male. HISTORY Adri Vora is a 70 year old gentleman here to be formally established with me. Dr. Juan Daniel Herzog had been his prior PCP. Questions about relational issues. Neck ache--?exercising with specific exercise. Dizziness all the time--work up revealed a small stroke . Working through this. Does a yoga move that triggered it. Running and biking now--son challenged him to do 10K and did it. Working in yard on unstable ground and working in dark triggers dizziness. Falls if eyes closed. Asked about monkey pox vaccine. Skin rash from insect bite on inner right upper thigh--started as red spot then got larger and now shrinking about 1 weeks ago. Ring like lesion with central redness. Not hot red. Treated with Neosporin and hydrocortisone and anti-itch cream. Did not see insect. August 2020 last EGD for Wahl's. States that had fundoplication so told did not need PPI or H2 kwesi. PAST MEDICAL HISTORY Diagnosis Date Wahl's esophagus determined by endoscopy 03/14/2014 Diverticulosis of colon (without mention of hemorrhage) Diverticulosis Family history of malignant neoplasm of gastrointestinal tract GERD (gastroesophageal reflux disease) Inguinal hernia without mention of obstruction or gangrene, unilateral or unspecified, (not specified as recurrent) Sensorineural hearing loss, unilateral, left ear, with restricted hearing on the contralateral side Unspecified hemorrhoids without mention of complication Hemorrhoids Vertigo No current outpatient medications on file. No current facility-administered medications for this visit. ALLERGIES No Known Allergies PAST SURGICAL HISTORY Procedure Laterality Date COLONOSCOPY FLX DX W/COLLJ SPEC WHEN PFRMD 06/01/2004 Colonoscopy COLONOSCOPY FLX DX W/COLLJ SPEC WHEN PFRMD 02/07/2012 COLONOSCOPY FLX DX W/COLLJ SPEC WHEN PFRMD 03/04/2017 [facility]. Anthony Herzog[facility]-repeat in 3 years EGD TRANSORAL BIOPSY SINGLE/MULTIPLE 02/07/2012 EGD TRANSORAL BIOPSY SINGLE/MULTIPLE 04/04/2014 ESOPHAGOGASTRODUODENOSCOPY TRANSORAL DIAGNOSTIC 03/04/2017 [facility]FLX TEST W/TELEMTRY PH ELTRD 04/04/2014 LAPS SURG ESOPG/GSTR FUNDOPLASTY 07/06/2014 ROTATOR CUFF REPAIR 2009 left RPR 1ST INGUN HRNA AGE 5 YRS/> REDUCIBLE Hernia repair, inguinal bilat FAMILY HISTORY Problem Relation Age of Onset Hypertension Father Colon Cancer Father 60 Heart Father Ischemic Heart Disease Father None Mother None Brother Social History Tobacco Use Smoking status: Never Smokeless tobacco: Never Substance Use Topics Alcohol use: Yes Alcohol/week: 30.0 standard drinks Comment: moderate Drug use: No Review of Systems Objective BP 138/86 Pulse 63 Ht 167.6 cm (5' 6 ) Wt 68.5 kg (151 lb) SpO2 97% BMI 24.37 kg/m Last 5 Encounter Wt Readings: Date: Wt: 10/02/2021 68.5 kg (151 lb) 06/04/2021 73.6 kg (162 lb 3.2 oz) 03/07/2020 75.3 kg (166 lb) 11/18/2018 71.7 kg (158 lb) 11/03/2018 71.7 kg (158 lb) No waist measurement recorded Estimated body mass index is 24.37 kg/m as calculated from the following: Height as of this encounter: 167.6 cm (5' 6 ). Weight as of this encounter: 68.5 kg (151 lb). Last 5 Encounter BP Readings: Date: BP: 10/02/2021 138/86 06/04/2021 134/94 03/07/2020 106/68 11/18/2018 122/90 11/03/2018 110/80 10/02/21 0852 10/02/21 0944 BP: 138/86 122/72 Pulse: 63 SpO2: 97% Weight: 68.5 kg (151 lb) Height: 167.6 cm (5' 6 ) Physical Exam Vitals reviewed. Constitutional: Appearance: Normal appearance. HENT: Head: Normocephalic. Right Ear: Tympanic membrane, ear canal and external ear normal. Left Ear: Tympanic membrane, ear canal and external ear normal. Mouth/Throat: Mouth: Mucous membranes are moist. Pharynx: Oropharynx is clear. Eyes: Extraocular Movements: Extraocular movements intact. Conjunctiva/sclera: Conjunctivae normal. Cardiovascular: Rate and Rhythm: Normal rate and regular rhythm. Pulses: Normal pulses. Heart sounds: Normal heart sounds. Pulmonary: Effort: Pulmonary effort is normal. Breath sounds: Normal breath sounds. Abdominal: General: Abdomen is flat. There is no distension. Palpations: Abdomen is soft. There is no mass. Musculoskeletal: Cervical back: Normal range of motion. Skin: General: Skin is warm and dry. Neurological: General: No focal deficit present. Mental Status: He is alert and oriented to person, place, and time. Psychiatric: Attention and Perception: Attention and perception normal. Mood and Affect: Mood and affect normal. Speech: Speech normal. Behavior: Behavior normal. Thought Content: Thought content normal. Cognition and Memory: Cognition and memory normal. Judgment: Judgment normal. noted rash right inner thigh--no signs of infection. has hearing aids Assessment and Plan ASSESSMENT/PLAN: 1. Wahl's esophagus determined by endoscopy - ICD9: 530.85, ICD10: K22.70 (primary diagnosis) Follow up due in 2023 2. Imbalance due to old stroke - ICD9: 438.89, 781.2, ICD10: I69.398, R26.89 Stable. Continue present management to prevent falls. Stays active. 3. Need for vaccination - ICD9: V05.9, ICD10: Z23 - PNEUMOCOCCAL VACCINE (PREVNAR 20) 70 year old gentleman here to be formally established with me. History and medications reviewed. Epic updated as needed Above issues addressed with patient. Patient involved in shared decision making for management of medical issues. Refills taken care of and meds adjusted as indicated after reviewed history, exam and labs. Health Maintenance reviewed. Updated record and/or ordered tests as recorded. Encouraged on efforts at healthy diet and regular exercise and adequate sleep. I spent a total of 52 minutes on the date of the service which included preparing to see the patient, [id number] patient care, completing clinical documentation, obtaining and/or reviewing separately obtained history, performing a medically appropriate examination, and counseling and educating the patient/family/caregiver. MD Magalys Martinez MD documented in this encounter [facility] documented as of this encounter (statuses as of 12/03/2021) [facility]12-10-2012 History of Past illness Narrative* Problem Noted Date Diagnosed Date Resolved Date GERD (gastroesophageal reflux disease) 01/27/2012 03/19/2018 Heartburn 01/27/2012 03/19/2018 Inguinal hernia without ment ion of obstruction or gangrene, unilateral or unspecified, (not specified as recurrent) 03/19/2018 Unspecified hemorrhoids with out mention of complication 03/19/2018 Overview: Hemorrhoids documented as of this encounter (statuses as of 11/18/2022) [facility]12-10-2012 History of Past illness Narrative* Problem Noted Date Diagnosed Date Resolved Date GERD (gastroesophageal reflux disease) 01/27/2012 03/19/2018 Heartburn 01/27/2012 03/19/2018 Inguinal hernia without ment ion of obstruction or gangrene, unilateral or unspecified, (not specified as recurrent) 03/19/2018 Unspecified hemorrhoids with out mention of complication 03/19/2018 Overview: Hemorrhoids documented as of this encounter (statuses as of 12/26/2022) [facility] Diagnosis Wahl's esophagus determined by endoscopy- Primary Imbalance due to old stroke Need for vaccination Need for prophylactic vaccination and inoculation against unspecified single disease [facility] Diagnosis Wahl's esophagus determined by endoscopy- Primary Anxiety Anxiety state, unspecified EMERALD on CPAP Obstructive sleep apnea (adult) (pediatric) Midline low back pain without sciatica, unspecified chronicity Colon cancer screening Special screening for malignant neoplasms, colon Prostate cancer screening Special screening for malignant neoplasm of prostate Encounter for screening for diabetes mellitus Screening for diabetes mellitus [facility] Diagnosis Need for influenza vaccination- Primary Need for prophylactic vaccination and inoculation against influenza documented in this encounter [facility] Summary Purpose Family History No Family History Records FoundNo Family History Records FoundNo Family History Records Found Advance Directives No Advanced Directives Records FoundNo Advanced Directives Records FoundNo Advanced Directives Records Found Reason for Referral Specialty Diagnoses / Procedures Referred By Contac t Referred To Contact General Surgery Diagnoses Colon cancer screening Wahl's esophagus determined by endoscopy Procedures CONSULT TO GENERAL SURGERY OFFICE/OUTPATIENT [facility] 60-74 MINUTES Magalys Scott MD [address] [place] [address] Anthony Herzog MD [address] [place] [address] Referral ID Status Reason Start Date Expiration Date Visits Requested Visits Authorized [id number] Pending Review PCP Requested Referral 10/15/2022 10/15/2023 1 1 Additional Source Comments (unrecognized sect ion and content) No Status Records FoundNo Status Records FoundNo Status Records Found INFORMATION SOURCE (unrecogn ized section and content) DATE CREATED AUTHOR AUTHOR'S ORGANIZ ATION 05/19/2020 [facility] DATE CREATED AUTHOR AUTHOR'S ORGANIZ ATION 12/25/2022 [facility] Source Comments (unrecognize d section and content) In the event this informatio n is protected by the Federal Confidentiality of Alcohol and Drug Abuse Patient Records regulations: The Federal rules restrict any use of the information to criminally investigate or prosecute any alcohol or drug abuse patient.[facility] the event this information is protected by the [facility] Confidentiality of Alcohol and Drug Abuse Patient Records regulations: The Federal rules restrict any use of the information to criminally investigate or prosecute any alcohol or drug abuse patient.[facility] the event this information is protected by the Federal Confidentiality of Alcohol and Drug Abuse Patient Records regulations: The Federal rules restrict any use of the information to criminally investigate or prosecute any alcohol or drug abuse patient.[facility] Reason for Visit (unrecogniz ed section and content) Reason Comments Yearly Exam Reason Onset Date Comments Immunizations 12/25/2022 Flu vaccination Care Teams (unrecognized sec tion and content) Media Director Relationship Specialty Start Date End Date Magalys Scott MD [address] [place], [place] [id number] PCP - General Internal Medicine 01/09/21 Media Director Relationship Specialty Start Date End Date Magalys Scott MD [address] [place] [address] PCP - General Internal Medicine 01/09/21 FOR RECORDS PERTAINING TO PATIENTS WHO ARE OR HAVE BEEN ENROLLED IN A CHEMICAL DEPENDENCY/SUBSTANCEABUSE PROGRAM, SOME INFORMATION MAY BE OMITTED. This clinical summary was aggregated from multiple sources. Caution should be exercised in using it in the provision of clinical care. This summary normalizes information from multiple sources, and as a consequence, information in this document may materially change the coding, format and clinical context of patient data. In addition, data may be omitted in some cases. CLINICAL DECISIONS SHOULD BE BASED ON THE PRIMARY CLINICAL RECORDS. [facility] [employer] [facility]. provides no warranty or guarantee of the accuracy or completeness of information in this document.
[2023-02-18] MEDS: Lactated Ringers 1,000 ML 15 ML IV (06:04)
--- NOTE | 2023-02-18 06:11 | PCM.HP.STD ---
[facility] - General General Date of Service: 02/18/23 Chief Complaint: Screening for intestinal cancer [facility] Narrative ADRI LOPEZ, is a 72 M who presents for colonoscopy via open access today. His most recent colonoscopy was February 2017. Diverticulosis identified. The patient has a family history with her father who had colon cancer. He has had hemorrhoids in the past. [facility] Medical History Alcohol use Barretts esophagus CPAP (continuous positive airway pressure) dependence Dizziness History of CVA (cerebrovascular accident) History of echocardiogram Nervous Non-smoker Wears glasses Wears hearing aid Home Medications ibuprofen 200 mg tablet 200 mg PO Q4H PRN PRN Pain 06/30/14 [History Last Taken Unknown] Allergy/AdvReac Type Severity Reaction Status Date / Time No Known Allergies Allergy Verified 02/18/23 06:01 Family History (Updated 01/06/23 @ 10:35 by Renetta Mora) Father Heart disease Hypertension High cholesterol Colon cancer Grandmother Colon cancer Surgical History History of esophagogastroduodenoscopy (EGD) History of fundoplication History of herniorrhaphy History of repair of rotator cuff Hx of colonoscopy Social History Smoking Status: Never smoker second hand exposure: No alcohol intake: current alcohol intake frequency: 0-2 drinks per day Alcohol type: beer substance use type: does not use caffeine: Yes what type of physical activity do you participate in: walking, running, bicycling and weight training frequency: 3-4 times per week seatbelt use: always ROS Constitutional Constitutional: Reports systems reviewed and no addt'l complaints, except as documented Cardiovascular Cardiovascular: Denies chest pain Respiratory/Chest Respiratory/Chest: Denies shortness of breath at rest Gastrointestinal Gastrointestinal: Denies abdominal pain, change in bowel habits, hematochezia or melena Vital Signs Vital Signs Vital Signs: 02/18/23 06:05 02/18/23 06:05 Temperature 97.4 F L Temperature Source Temporal Pulse Rate 62 Respiratory Rate 17 Respiratory Pattern Normal Blood Pressure 128/82 H Blood Pressure Mean 97 Blood Pressure Source Monitor Blood Pressure Position Semi-Fowlers Blood Pressure Location Left Arm Pulse Ox 100 Oxygen Delivery Method Room Air Weight Weight: 145 lb 8.081 oz Body Mass Index (BMI) 22.8 Physical Exam Const alert, oriented x3 and no apparent distress General Appearance: cooperative and comfortable Eyes General Eye: normal appearance of both eyes Neck General: normal visual inspection Chest inspection of chest normal Resp Effort and Inspection: able to speak in complete sentences and symmetric chest movement Auscultation: clear to auscultation bilaterally Cardio regular rate and regular rhythm GI soft to palpation, non-tender and non-distended Extremity no calf tenderness Neuro oriented x3 Psych thought process normal Assessment & Plan Assessment/Plan (1) Encounter for screening for malignant neoplasm of colon: PLAN: The patient presents for screening colonoscopy today due to a family history of colon cancer in his father. His most recent colonoscopy was February 2017. He presents via open access today. He has had an opportunity to ask and have questions answered. We will proceed with a colonoscopy with possible biopsy or polypectomy as indicated. It is of note that he keeps himself in good condition and just recently completed a half marathon. Anthony Herzog M.D., F.A.C.S.
--- NOTE | 2023-02-18 06:30 | COLBX_PTH ---
PATHOLOGY RESULTS PATIENT: ADRI LOPEZ LOC: EN U#:[id number] AGE/SX: 72/M ROOM: RE02/18/[address]: Dr. Anthony Herzog MD : 1950 BED: DIS: 02/18/2023 SPEC #: [id number] RECD: 02/18/23 11:37 STATUS: PADILLA DANIEL #: [id number] GREG: 02/18/23 06:[address]: Anthony Herzog DEPT: SURGICAL PATHOLOGY RECD BY: Shereen Bautista ENTERED: 02/18/23 11:37 SP TYPE: COLON BX OTHR DR: Dr. Neva Larson MD Tissues: Ascending colon Cecum, NOS Procedures: Surgery Specimen Level IV HEADER OPERATION: Colonoscopy - open access, polypectomy PRE-OP DIAGNOSIS: Screening TISSUE SUBMITTED: A - Mid ascending polyp, B - Cecal polyp MICROSCOPIC DIAGNOSIS A. Mid ascending colon polyp, biopsy: Fragments of tubular adenoma. B. Cecal polyp, biopsy: Fragments of tubular adenoma. Benign lymphoid aggregates. AM:nestor 02/19/2023 MICROSCOPIC DESCRIPTION Slides are reviewed. GROSS DESCRIPTION A - Received in fixative is one container labeled with the patient's name and designated mid ascending polyp. The specimen consists of multiple irregular fragments of light williamson soft tissue that in aggregate measure 0.8 x 0.5 x 0.1 cm. The specimen is totally submitted in one cassette. B - Received in fixative is one container labeled with the patient's name and designated cecal polyp. The specimen consists of multiple irregular fragments of light williamson soft tissue that in aggregate measure 2.5 x 1.0 x 0.2 cm. The specimen is totally submitted in one cassette. / SJ:nestor 02/18/2023 TC:5 [facility]: [id number] x2
[2023-02-18] MEDS: 0.9% Saline Lock 10 ML Syringe IV ×2 (06:42→07:03)
[2023-02-18] MEDS: Midazolam 5 MG/ML Syringe (06:46)
--- NOTE | 2023-02-18 07:17 | OP.CCLET_ITS ---
02/18/2023 Neva Larson [address] [place] [address] Re : Colonoscopy procedure for Sundeep Vora Dear Dr. Larson This procedure was performed on Saturday, February 18, 2023. My impressions and recommendations are as follows: Impressions : - Non-thrombosed external hemorrhoids, non-thrombosed internal hemorrhoids, internal hemorrhoids that prolapse with straining, but spontaneously regress to the resting position (Grade II) and enlarged prostate found on digital rectal exam. - One 18 mm polyp in the cecum, removed using injection-lift and a hot snare. Resected and retrieved. Clips were placed. - One 14 mm polyp in the mid ascending colon, removed with a hot snare and removed using injection-lift and a hot snare. Resected and retrieved. - Diverticulosis in the entire examined colon. Recommendations : - Discharge patient to home. - Clear liquid diet. - Continue present medications. - Repeat colonoscopy in 1 year for surveillance based on pathology results. - Telephone my office for pathology results in 1 week. My findings are described in the full procedure note, which is enclosed. If I can be of further assistance, please feel free to contact me at Doctor phone number(s): Work: . Sincerely, Anthony Herzog MD 02/18/2023 7:15:53 AM This report has been signed electronically.
--- NOTE | 2023-02-18 07:17 | OP.COLON_ITS ---
Patient Name: Sundeep Vora Procedure Date: 02/18/2023 6:16 AM Date of : 1950 Age: 72 Procedure: Colonoscopy Indications: Family history of colon cancer in a first-degree relative before age 60 years Providers: Anthony Herzog MD Referring MD: Anthony Herzog MD Medicines: Midazolam 4.5 mg IV, Meperidine 100 mg IV Patient Profile: Last Colonoscopy: February 2017. Complications: No immediate complications. Procedure: Pre-Anesthesia Assessment: - Prior to the procedure, a History and Physical was performed, and patient medications and allergies were reviewed. The patient's tolerance of previous anesthesia was also reviewed. The risks and benefits of the procedure and the sedation options and risks were discussed with the patient. All questions were answered, and informed consent was obtained. Prior Anticoagulants: The patient has taken no anticoagulant or antiplatelet agents. ASA Grade Assessment: II - A patient with mild systemic disease. After reviewing the risks and benefits, the patient was deemed in satisfactory condition to undergo the procedure. After I obtained informed consent, the scope was passed under direct vision. Throughout the procedure, the patient's blood pressure, pulse, and oxygen saturations were monitored continuously. The colonoscope was introduced through the anus and advanced to the cecum, identified by appendiceal orifice and ileocecal valve. The colonoscopy was technically difficult and complex. The patient tolerated the procedure well. The quality of the bowel preparation was good. The ileocecal valve and the appendiceal orifice were photographed. Moderate Sedation: Moderate (conscious) sedation was personally administered by the endoscopist. The following parameters were monitored: oxygen saturation, heart rate, blood pressure, and response to care. Total physician intraservice time was 25 minutes. Scope In: 6:32:16 AM Scope Withdrawal Time 0 hours 30 minutes 24 seconds Scope Out: 7:08:08 AM Total Procedure Duration Time 0 hours 35 minutes 52 seconds Findings: The digital rectal exam findings include non-thrombosed external hemorrhoids, non-thrombosed internal hemorrhoids, internal hemorrhoids that prolapse with straining, but spontaneously regress to the resting position (Grade II) and enlarged prostate. An 18 mm polyp was found in the cecum. The polyp was sessile. The polyp was removed with a saline injection-lift technique using a hot snare. Resection and retrieval were complete. To prevent bleeding post-intervention, three hemostatic clips were successfully placed. There was no bleeding at the end of the procedure. A 14 mm polyp was found in the mid ascending colon. The polyp was sessile. The polyp was removed with a hot snare. The polyp was removed with a saline injection-lift technique using a hot snare. Resection and retrieval were complete. Multiple diverticula were found in the entire colon. Impression: - Non-thrombosed external hemorrhoids, non-thrombosed internal hemorrhoids, internal hemorrhoids that prolapse with straining, but spontaneously regress to the resting position (Grade II) and enlarged prostate found on digital rectal exam. - One 18 mm polyp in the cecum, removed using injection-lift and a hot snare. Resected and retrieved. Clips were placed. - One 14 mm polyp in the mid ascending colon, removed with a hot snare and removed using injection-lift and a hot snare. Resected and retrieved. - Diverticulosis in the entire examined colon. Recommendation: - Discharge patient to home. - Clear liquid diet. - Continue present medications. - Repeat colonoscopy in 1 year for surveillance based on pathology results. - Telephone my office for pathology results in 1 week. Procedure Code(s): --- Professional --- 77726, Colonoscopy, flexible; with removal of tumor(s), polyp(s), or other lesion(s) by snare technique 71833, Colonoscopy, flexible; with directed submucosal injection(s), any substance 53246, 59, Moderate sedation services provided by the same physician or other qualified health transitional care manager performing the diagnostic or therapeutic service that the sedation supports, requiring the presence of an independent trained observer to assist in the monitoring of the patient's level of consciousness and physiological status; initial 15 minutes of intraservice time, patient age 5 years or older [address], Moderate sedation; each additional 15 minutes intraservice time Diagnosis Code(s): --- Professional --- D12.0, Benign neoplasm of cecum D12.2, Benign neoplasm of ascending colon K64.1, Second degree hemorrhoids K64.4, Residual hemorrhoidal skin tags Z80.0, Family history of malignant neoplasm of digestive organs N40.0, Benign prostatic hyperplasia without lower urinary tract symptoms K57.30, Diverticulosis of large intestine without perforation or abscess without bleeding CPT copyright 2021 [employer]. All rights reserved. The codes documented in this report are preliminary and upon airline managerial supervisor review may be revised to meet current compliance requirements. Anthony Herzog MD 02/18/2023 7:15:53 AM This report has been signed electronically. Number of Addenda: 0 Note Initiated On: 02/18/2023 6:16 AM
== END 2023-02-18 08:15 | disposition home or self-care (01) ==
LOC: EN 05:29 → AC 05:31
PROVIDERS: PCP Internal Medicine; Referring Provider Internal Medicine; Visit Provider Surgery
PROC: 0DJD8ZZ Inspection of Lower Intestinal Tract, Via Natural or Artificial Opening Endoscopic (ICD-10-PCS; CPT 45378; principal; 2023-02-18 06:25)
DX: Z12.11 Encounter for screening for malignant neoplasm of colon (principal); N40.0 Benign prostatic hyperplasia without lower urinary tract symptoms; K57.30 Diverticulosis of large intestine without perforation or abscess without bleeding; Z80.0 Family history of malignant neoplasm of digestive organs; K63.5 Polyp of colon; K64.4 Residual hemorrhoidal skin tags; Z86.73 Personal history of transient ischemic attack (TIA), and cerebral infarction without residual deficits; Z99.89 Dependence on other enabling machines and devices; K64.1 Second degree hemorrhoids; D12.0 Benign neoplasm of cecum
CPT/HCPCS: 45385; 45381; 88305; 99152; 99153; J7120; A4216

== ENCOUNTER → 2024-06-01 | Outpatient (CLI) | payer MEDICARE, OTHER, SELFPAY ==
--- NOTE | 2024-06-01 09:51 | RAD_ITS ---
PROCEDURE: CHEST PA AND LATERAL 06/01/2024 REASON FOR EXAM: WHEEZING TECHNIQUE: Frontal and lateral views of the chest. COMPARISON: None. FINDINGS: The lungs are emphysematous. Mild bilateral basilar atelectatic pulmonary changes. Calcified atheromatous plaques of the aorta. There is no demonstrated pleural abnormality. Normal heart and pericardium. Normal mediastinum and peter. Normal visualized pulmonary arteries. Normal visualized aortic arch and descending thoracic aorta. Mild diffuse spondylosis of the visualized thoracic spine. Normal visualized ribs, clavicles, and shoulders. There is no demonstrated abnormality of the visualized soft tissue structures of the upper abdomen. RAD/Chest PA and Lateral IMPRESSION: Emphysema. Mild bilateral basilar atelectatic pulmonary changes. Reading Location[facility]
== END | disposition home or self-care (01) ==
LOC: MTRAD 09:50
PROVIDERS: PCP Internal Medicine; Referring Provider Internal Medicine Pulmonary Disease; Visit Provider Internal Medicine Pulmonary Disease
DX: R06.2 Wheezing (principal)
CPT/HCPCS: 71046

== ENCOUNTER 2024-09-07 12:13 | Emergency (ER) | payer MEDICARE, OTHER, SELFPAY ==
[2024-09-07 12:14] VITALS: BP 160/89; PULSE 57; RESP 16; TEMP 37.1; O2SAT 100; BMI 27.2
--- NOTE | 2024-09-07 12:30 | VDLE_ITS ---
Reason For Study Reason For Study: RLE Swelling RIGHT GSV is normal. CFV is compressible, spontaneous, phasic, competent and demonstrates normal augmentation. FV is compressible, spontaneous, phasic, competent and demonstrates normal augmentation. POP V is compressible, spontaneous, phasic, competent and demonstrates normal augmentation. T/P Trunk is compressible. PTV is compressible. RT PerV is compressible. Anechoic area noted around the fascia of Rt Medial Gastrocnemius muscle. Possible trauma or injury. Procedure This is a venous duplex using B-mode, color flow and spectral Doppler. Exam performed in department. The exam was diagnostic. A preliminary report was called and/or faxed to Dr. Rivera. VL/Venous Duplex US, Unilateral Interpretation Summary Deep veins of the right lower extremity are patent and compressible segmentally . There is no evidence of right lower extremity deep vein thrombosis. The right great saphenous vein appears patent a nd compressible segmentally. Anechoic area noted around the fascia of right medial gastrocnemius muscle. Ordering Physician: Tej Rivera Referring Physician: Neva Larson Performed By: Donald Cyr, RVT
--- NOTE | 2024-09-07 13:15 | RAD_ITS ---
PROCEDURE: KNEE 4 OR MORE VIEWS 09/07/2024 REASON FOR EXAM: INJURY/PAIN TECHNIQUE: KNEE 4 OR MORE VIEWS COMPARISON: None FINDINGS: There is no fracture or dislocation identified. Joint spaces are maintained. Mineralization is normal. There is no visible soft tissue abnormality or radiopaque foreign body. There is no definite effusion. RAD/Knee 4 or More Views IMPRESSION: No fracture or dislocation is identified. Reading Location: [facility]
--- NOTE | 2024-09-07 13:33 | EX.ED.DYSGE1 ---
HPI History of Present Illness Chief Complaint: Edema Detail of Chief Complaint: Prevents from urgent care because of leg swelling and knee pain and swellin Informant: patient and spouse/S.O. Onset/Context/Timing Onset: - (Onset Friday) Context: Sudden Onset Timing: Continuous Quality: Initially pain in the knee followed by swelling of his right calf Location: Right lower extremity Current Severity: Mild Worsened by: Use up right knee Relieved by: Nothing, better with rest Associated Symptoms Associated Symptoms: No chest pain, shortness of breath or difficulty breathing. Narrative Narrative: Patient is a 73-year-old male who presents from urgent care. He went to urgent care in the person who saw him thought he needed a venous duplex study. Patient denies any direct trauma. He has been riding his bicycle, stationary. He complains of pain anterior right knee. He also complains of pain medial right knee and proximal right leg anteriorly. He states the swelling started this weekend. He denies any pain in the calf. He denies paresthesia, anesthesia or motor weakness. He denies chest pain or shortness of breath. He denies dyspnea with activity. Prior similar symptoms: No Recent Illness/Hospitalization: No PFSH [facility] Medical History Personal history of colonic polyps Wears hearing aid Wears glasses Nervous Alcohol use CPAP (continuous positive airway pressure) dependence Non-smoker History of echocardiogram Barretts esophagus Dizziness History of CVA (cerebrovascular accident) Home Medications ?Medication ?Instructions ?Recorded ?Last Taken ?Type ibuprofen 200 mg tablet 200 mg PO Q4H PRN PRN Pain 06/30/14 Unknown History acetaminophen 325 mg tablet 650 mg PO ONCE PRN 02/23/24 Unknown History (Tylenol) Allergy/AdvReac Type Severity Reaction Status Date / Time No Known Allergies Allergy Verified 09/07/24 12:16 Family History Father Heart disease Hypertension High cholesterol Colon cancer Grandmother Colon cancer Surgical History History of esophagogastroduodenoscopy (EGD) Hx of colonoscopy History of repair of rotator cuff History of herniorrhaphy History of fundoplication Social History Smoking Status: Never smoker second hand exposure: No alcohol intake: current alcohol intake frequency: 0-2 drinks per day Alcohol type: beer substance use type: does not use caffeine: Yes what type of physical activity do you participate in: walking, running, bicycling and weight training frequency: 3-4 times per week seatbelt use: always ROS ROS ED Constitutional Constitutional ED: Denies chills, fever(s), subjective, sweats or weight loss Cardiovascular Cardiovascular: Denies chest pain or palpitations Respiratory/Chest Respiratory/Chest: Denies cough, dyspnea or dyspnea on exertion Musculoskeletal Musculoskeletal: Denies arthralgias or myalgias Integumentary Denies rash Neurologic Neurologic: Denies paresthesias or weakness Hematologic/Lymphatic Hematologic/Lymphatic: Reports systems reviewed and no addt'l complaints, except as documented EXAM Physical Exam Const Vital Signs: 09/07/24 12:14 Temperature 98.8 F Temperature Source Oral Pulse Rate 57 L Respiratory Rate 16 Blood Pressure 160/89 H Blood Pressure Mean 112 Pulse Ox 100 Oxygen Delivery Method Room Air Positive well nourished and well developed General Appearance ED: well developed and NAD; Negative for pallor HEENT Reports moist mucous membranes HEENT Narrative: Head is atraumatic and normocephalic. Eyes PERRL and EOMs intact bilaterally General Eye ED: Negative for pale conjunctiva or scleral icterus Resp normal respiratory effort and clear to auscultation bilaterally Cardio regular rate, regular rhythm, S1 normal heart sound, S2 normal heart sound and no murmurs Extremity Negative for normal to inspection Extremity Narrative: There is swelling of the right calf. There is also swelling anterior right knee. The patella is not ballotable. There is an effusion. Varus valgus stress testing causes slight discomfort over the MCL joint. There is no laxity appreciated. There is no tenderness along the joint line. Alonso's test was negative. Modified Jaylon's test is negative. There is no fullness or pain in the popliteal fossa. There is no pain involving the right calf. There is no bruising noted or evidence of trauma. DP and PT pulse are palpable. Neuro oriented x3 and CN's II-XII intact bilaterally Sensorium / Orientation: alert Psych mental status grossly normal Skin no rashes or lesions noted, no wounds and skin turgor normal General Skin Exam: elasticity normal; Negative for jaundice or pallor MDM MDM MDM Narrative Medical decision making narrative: Patient's Wells score for DVT is +2. Since he is moderate risk we will obtain venous duplex to rule out DVT. Venous duplex was in interpreted by body art technician is negative. He did inform me of the fluid collection right medial leg. Radiography Chest X-Ray - ED: Read by ED Physician (4 view x-ray of the knee was independent reviewed interpreted by me as negative at 1320. There is no fracture, subluxation dislocation. There is no obvious degenerative changes noted.) Diagnostic Testing: Clinical Impression(s) from Imaging Studies Knee X-Ray 09/07/24 13:15 IMPRESSION: No fracture or dislocation is identified. Reading Location: [facility] was informed by the hvac engineering technician that the patient not have a DVT however there was a fluid collection medial proximal portion of the right knee. This is where he has tenderness. This appears to be blood. This would raise suspicion that patient has a muscle tear and reason for his swollen calf and leg. Discharge Plan Triage Chief Complaint: Edema ED Provider: Tej Rivera Dx/Rx/DC Orders Clinical Impression: Knee effusion, left, Gastrocnemius muscle tear Instructions: ED Knee Effusion, ED Muscle Strain, Extremity Prescriptions: No Action acetaminophen [Tylenol] 325 mg tablet 650 mg PO ONCE PRN ibuprofen 200 MG tablet 200 mg PO Q4H PRN PRN (Reason: Pain) Patient Comments: PAIN Primary Care Provider: Neva Larson Referrals: Neva Larson MD [Primary Care Provider] - 10-14 Days if not better Activity Restrictions/Additional Instructions: 1. Apply ice to your knee and 6-8 times a day. 2. Recommend not using your stationary or doing anything strenuous for the next 1 to 2 weeks. Print Language: Greek Disposition Disposition: Home, Self Care
[2024-09-07] MEDS: HYDROcodone Bitartrate/Apap 5/325 Tablet PO (13:46)
[2024-09-07 13:48] VITALS: BP 142/74; PULSE 61; RESP 18; TEMP 37.1; O2SAT 100
--- OUTSIDE RECORDS SUMMARY | 2024-09-07 20:34 | XMS RPT_ITS | CCD ---
Author Organization [facility] Team Providers Care Director General Name Role Phone None, No PCP Unavailable Unavailable Magalys Larson MD Primary Care Provider Magalys Larson MD Primary Care Provider Magalys Larson MD Primary Care Provider Mehta INSURANCE BILLER.BRICK MOLDER HAND, Ankita Unavailable Gela INSURANCE BILLER.GRAPPLE CREW LEADER, Cyndie Unavailable LATOYA AL Referring Unavailable TALAMPAS, MAGALYS D Primary Care Unavailable PADMINI VILLEGAS Admitting Unavailable PADMINI VILLEGAS Attending Unavailable Gela INSURANCE BILLER.GRAPPLE CREW LEADER, Cyndie Unavailable Gela INSURANCE BILLER.GRAPPLE CREW LEADER, Cyndie Unavailable LATOYA AL Attending Unavailable TALAMPAS, MAGALYS D Primary Care Unavailable [place], Alexandr Referring Unavailable TALAMPAS, MAGALYS D Primary Care Unavailable Brenton Alexandr Referring Unavailable BrentonAlexandr Attending Unavailable TALAMPAS, MAGALYS D Primary Care Unavailable TALAMPAS, MAGALYS D Referring Unavailable [place] Alexandr Attending Unavailable LATOYA AL Attending Unavailable TALAMPAS, MAGALYS D Primary Care Unavailable [place], Alexandr Referring Unavailable TALAMPAS, MAGALYS D Referring Unavailable TALAMPAS, MAGALYS D Primary Care Unavailable TALAMPAS, MAGALYS D Attending Unavailable TALAMPAS, MAGALYS D Primary Care Unavailable Dr. Magalys Larson MD Primary Care Provider Renetta Mora Attending Provider Unavailable Dr. Anthony Smith MD, V Attending Provider Dr. Anthony Smith MD, V Referring Provider [phone] Renetta Mora Attending Unavailable Neo, Magalys Corina Primary Care Unavailable Anthony Smith V Referring Unavailable Talampas, Magalys D Primary Care Unavailable Anthony Smith V Attending Unavailable Jose Saleem Attending Unavailable Magalys Larson Primary Care Unavailable Neo THOMAS, Dr. Magalys Arriaga Primary Care Provider Miguel THOMAS, Dr. Burnham Emergency Provider Medications Current Medications Medication Drug Class(es) Dates Sig (Normalized) Sig (Original) acetaminophen 325 mg oral tablet (2 sources) Start: 02-23-2024 take 2 tablets by mouth once as needed Acetaminophen (Tylenol) 325 mg tablet Active 650 mg PO ONCE as needed February 23, 2024 1:00am ibuprofen 200 mg oral tablet (3 sources) Nonsteroidal Anti-inflammatory Drug Start: 06-30-2014 take 1 tablet by mouth every four hours as needed for pain Ibuprofen 200 MG tablet Active 200 mg PO EVERY 4 HOURS NEEDED as needed for Pain June 30, 2014 12:00am omeprazole 20 mg delayed release oral capsule (3 sources) Proton Pump Inhibitor Start: 09-19-2023 End: 10-19-2023 take 1 capsule by mouth once daily omeprazole (PRILOSEC) 20 mg capsule Take 1 capsule by mouth once daily. 30 capsule 2 09/19/2023 Active sildenafil 100 mg oral tablet (3 sources) Phosphodiesterase 5 Inhibitor Start: 10-21-2023 take 1 tablet by mouth once daily as needed sildenafil (VIAGRA) 100 mg tablet Take 1 tablet by mouth once daily as needed. Take 30-60 minutes before sexual activity. 40 tablet 10/21/2023 Active tadalafil 20 mg oral tablet (10 sources) Phosphodiesterase 5 Inhibitor Start: 10-15-2022 End: 10-21-2023 Tadalafil (CIALIS) 20 mg tablet Take 1 tablet by mouth as needed. As directed 40 tablet 10/21/2023 Active Comment on above: Take 1 tablet by job as needed. As directed Completed/Discontinued Medications Medication Drug Class(es) Dates Sig (Normalized) Sig (Original) acetaminophen 325 mg / oxyCODONE hydrochloride 5 mg oral tablet (3 sources) Opioid Agonist Start: 07-07-2014 End: 02-06-2017 Oxycodone-Acetamino phen 1 TABLET tablet Discontinued 1 {tbl} PO EVERY 4 HOURS NEEDED as needed for Pain 20 0 July 07, 2014 12:00am February 06, 2017 4:32pm Start: 07-07-2014 End: 02-06-2017 take 1 tablet by mouth every four hours as needed Oxycodone-Acetaminophen Discontinued 1 TABLET PO EVERY 4 HOURS NEEDED July 06, 2014 11:00pm February 06, 2017 3:32pm Benzocaine (1 source) Standardized Chemical Allergen Start: 09-12-2023 End: 09-12-2023 benzocaine 20% 1 [place] (TOPEX) calcium chloride 0.0014 meq/ml / potassium chloride 0.004 meq/ml / sodium chloride 0.103 meq/ml / sodium lactate 0.028 meq/ml injectable solution (1 source) Start: 09-12-2023 End: 09-12-2023 lactated ringers iv infusion diphenhydrAMINE (1 source) Histamine-1 Receptor Antagonist Start: 09-12-2023 End: 09-12-2023 diphenhydrAMINE 12.5-50 mg injection (BENADRYL) 1 ml fentaNYL 0.05 mg/ml injection (1 source) Opioid Agonist Start: 09-12-2023 End: 09-12-2023 fentaNYL 50 mcg/mL 25-100 mcg injection (SUBLIMAZE) 5 ml midazolam 1 mg/ml injection (1 source) Benzodiazepine Start: 09-12-2023 End: 09-12-2023 midazolam 1-5 mg injection (VERSED) raNITIdine 150 mg oral tablet (3 sources) Histamine-2 Receptor Antagonist Start: 04-04-2014 End: 02-06-2017 take 1 tablet by mouth twice daily Ranitidine Hcl 150 MG tablet Discontinued 150 mg PO TWICE A DAY April 04, 2014 1:00am February 06, 2017 4:32pm Problems Active Problems Problem Classification Problem Date Documented Da te Episodic/Chronic Acute cerebrovascular disease (9 sources) Basal ganglia hemorrhage; 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, subcortical] Onset: 9 11-18-2018 Chronic Anxiety disorders (1 source) Anxiety; Translations: [Anxiety disorder, unspecified] 10-15-2022 Chronic Cardiac dysrhythmias (3 sources) Paroxysmal supraventricular tachycardia; Translations: [Supraventricular tachycardia] 01-19-2019 Chronic Conditions associated with dizziness or vertigo (3 sources) Dizziness; Translations: [Dizziness and giddiness] 01-19-2019 Episodic Disorders of teeth and jaw (1 source) Temporomandibular gvxkf-ensj-wmbdaxrdgjj syndrome; Translations: [Arthralgia of temporomandibular joint, unspecified side] 10-21-2023 Episodic Esophageal disorders (20 sources) Wahl's esophagus; 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] Onset: 2 Resolved: 9 Chronic Immunizations and screening for infectious disease (3 sources) Vaccination needed; Translations: [Encounter for immunization] Episodic Late effects of cerebrovascular disease (10 sources) Impairment of balance; Translations: [Other sequelae of cerebral infarction] Onset: 9 Chronic Open wounds of extremities (1 source) Laceration of thumb; Translations: [Open wound of finger(s), without mention of complication] Episodic Other aftercare (1 source) Long-term current use of drug therapy; Translations: [Other fdc (current) drug therapy] 10-21-2023 Episodic Other and unspecified benign neoplasm (1 source) History of polyp of colon; Translations: [History of colonic polyps] 02-23-2024 Episodic Other circulatory disease (3 sources) History of cerebrovascular accident; Translations: [Personal history of transient ischemic attack (TIA), and cerebral infarction without residual deficits] 02-13-2023 Episodic Comment on above: PATIENT HAS NO RECOL LECTION OF NAMED CVA Other ear and sense organ disorders (10 sources) Bilateral hearing loss; Translations: [Unspecified hearing loss, bilateral] Onset: 9 03-19-2018 Chronic Other gastrointestinal disorders (3 sources) History of Wahl's esophagus; Translations: [Personal history of other diseases of the digestive system] 08-10-2020 Episodic Other lower respiratory disease (1 source) Wheezing; Translations: [Wheezing] Onset: Episodic Other nervous system disorders (1 source) Impairment of balance; Translations: [Other abnormalities of gait and mobility] 10-21-2023 Episodic Other non-traumatic joint disorders (1 source) Stiffness of joint of left hip; Translations: [Stiffness of left hip, not elsewhere classified] 10-21-2023 Episodic Other non-traumatic joint disorders (1 source) Effusion of joint of left knee; Translations: [Effusion, left knee] 09-07-2024 Episodic Other screening for suspected conditions (not mental disorders or infectious disease) (18 sources) Patient encounter status; Translations: [Encounter for screening for malignant neoplasm of colon] Onset: 4 10-15-2022 Episodic Residual codes; unclassified (2 sources) Obstructive sleep apnea syndrome; Translations: [Obstructive sleep apnea (adult) (pediatric)] 11-17-2022 Chronic Residual codes; unclassified (9 sources) Family history of malignant neoplasm of gastrointestinal tract; Translations: [Family history of malignant neoplasm of digestive organs] 11-13-2004 Episodic Residual codes; unclassified (4 sources) Family history of cancer of colon; Translations: [Family history of malignant neoplasm of digestive organs] 02-23-2024 Episodic Residual codes; unclassified (2 sources) Family history of malignant neoplasm of digestive organs; Translations: [Family history of colon cancer in father] Onset: 5 Episodic Residual codes; unclassified (2 sources) History of colonoscopy; Translations: [Other specified postprocedural states] 02-23-2024 Episodic Comment on above: X3 + Spondylosis; intervertebral disc disorders; other back problems (1 source) Low back pain; Translations: [Midline low back pain without sciatica, unspecified chronicity] 11-17-2022 Episodic Sprains and strains (1 source) Rupture of gastrocnemius tendon; Translations: [Strain of other muscle(s) and tendon(s) of posterior muscle group at lower leg level, unspecified leg, initial encounter] 09-07-2024 Episodic Unclassified (2 sources) History of colonic polyps; Translations: [History of colonic polyps] Onset: 5 Past or Other Problems Problem Classification Problem Date Documented Da te Episodic/Chronic Abdominal hernia (6 sources) Inguinal hernia; Translations: [Unilateral inguinal hernia, without obstruction or gangrene, not specified as recurrent] Resolved: 03-19-2018 03-19-2018 Episodic Hemorrhoids (6 sources) Hemorrhoids; Translations: [Unspecified hemorrhoids] Resolved: 03-19-2018 03-19-2018 Episodic Other aftercare (1 source) Other intermodal customer service (current) drug therapy; Translations: [Encounter for long-term current use of medication] Onset: 10-21-2023 Episodic Other gastrointestinal disorders (7 sources) Heartburn; Translations: [Heartburn] Onset: 01-27-2012 Resolved: 03-19-2018 03-19-2018 Episodic Other gastrointestinal disorders (1 source) Heartburn; Translations: [Heartburn] Onset: 09-12-2023 Episodic Results Test Name Value Interpretation Reference Range Facility Chest PA and Lateralon 06-01 Chest PA and Lateral [facility] [address] [place] [address] Chest PA and Lateral MR#: [id number] Acct: [id number] Name: SUNDEEP LOPEZ Rep #: [id number] : 1950 M 73 From: Blanca desai MD PCP: Dr. Magalys Larson MD Status: REG CLI Study: Chest PA and Lateral Date of Exam: 06/01/24 Exam# [id number] Ordering Dr: Anthony Smith MD PROCEDURE: CHEST PA AND LATERAL 06/01/2024 REASON FOR EXAM: WHEEZING TECHNIQUE: Frontal and lateral views of the chest. COMPARISON: None. FINDINGS: The lungs are emphysematous. Mild bilateral basilar atelectatic pulmonary changes. Calcified atheromatous plaques of the aorta. There is no demonstrated pleural abnormality. Normal heart and pericardium. Normal mediastinum and peter. Normal visualized pulmonary arteries. Normal visualized aortic arch and descending thoracic aorta. Mild diffuse spondylosis of the visualized thoracic spine. Normal visualized ribs, clavicles, and shoulders. There is no demonstrated abnormality of the visualized soft tissue structures of the upper abdomen. RAD/Chest PA and Lateral IMPRESSION: Emphysema. Mild bilateral basilar atelectatic pulmonary changes. [facility] CC: Dr. Magalys Larson MD; Dr. Anthony Smith MD Costume Cutter: Signed Normal [facility] ANES POSTPROC EVALon 025 ANES POSTPROC EVAL HNO ID: [id number] Author: SYMONE IVY MD Service: Anesthesiology Author Type: Physician Type: Anesthesia Postprocedure Evaluation Filed: 04/15/2024 08:59 Note Text: POST ANESTHESIA EVALUATION NOTE : 1950 Procedure Summary Date: 04/15/24 Room / Location: LD SURGERY Anesthesia Start: 829 Anesthesia Stop: Procedure: COLONOSCOPY SCREENING Diagnosis: History of colonic polyps Family history of colon cancer in father Screen for colon cancer History of colonic polyps Family history of colon cancer in father Screen for colon cancer Scheduled Providers: Padmini Villegas MD; Symone Ivy MD Responsible Provider: Symone Ivy MD Anesthesia Type: MAC ASA Status: 3 Anesthesia Type: MAC Last Vitals Vitals Value Taken Time BP 108/78 04/15/24 0850 Temp 36.4 ?C (97.5 ?F) 04/15/24 0806 Pulse 60 04/15/24 0853 Resp 15 04/15/24 0853 SpO2 100 % 04/15/24 0853 Post Anesthesia Patient Status Patient Evaluation: bedside. Anticipated Disposition: phase 2 then home. Neurological Status: aware and responsive. Pulmonary Status: breathing comfortably on room air Airway Control: returned to baseline unsupported. Cardiovascular Status: stable. Pain Management: clinically adequate Postoperative Hydration: acceptable. Intraoperative Events: no significant anesthesia events Post Operative Nausea/Vomiting Status: no significant post operative nausea or vomiting Recommendation: continue current plan of care. Anesthesia Observations No Documentation SIGNATURE: Symone Ivy MD PATIENT NAME: Sundeep Lopez DATE: April 15, 2024 TIME: 8:59 AM CSN: [id number] [facility] ANES PRE-OPon 04-15-2024 ANES PRE-OP HNO ID: [id number] Author: SYMONE IVY MD Service: Anesthesiology Author Type: Physician Type: Anesthesia Preprocedure Evaluation Filed: 04/15/2024 08:25 Note Text: ANESTHESIOLOGY DAY OF SURGERY NOTE : 1950 Procedure Information Date/Time: 04/15/24 0830 Scheduled providers: Padmini Villegas MD; Symone Ivy MD Procedure: COLONOSCOPY SCREENING Location: [facility] SURGERY Estimated body mass index is 25.22 kg/m? as calculated from the following: Height as of 04/05/24: 170.2 cm (5' 7). Weight as of 04/05/24: 73 kg (161 lb). Most recent hematocrit and potassium results: Hematocrit 47.5 10/21/2023 Potassium 4.5 10/21/2023 Relevant Problems No relevant active problems I - PHYSICAL EVALUATION AIRWAY Patient intubated: No. Tracheostomy tube not present Mallampati: II. TM distance: >3 FB. Neck ROM: full ROM without neurological symptoms. Mouth opening: adequate. Short neck: no. Thick neck: no Guajardo present: no Microretrognathia/Micronagt hia/Recessed Chin: No DENTAL Dental findings: teeth intact. Additional exam findings: yes. CARDIOVASCULAR Normal cardiovascular observations. PULMONARY Normal pulmonary observations. II - ANESTHESIA PLAN ASA Score: 3 Anesthetic Plan: MAC The patient is not a current smoker. NPO Status: adequate Beta Kwesi Monitoring Plan Monitoring plan: standard ASA. Post Procedure Analgesic Plan Postoperative analgesic plan: parenteral or oral opioids. Informed Consent Anesthetic risks, benefits, alternatives, personnel and consent discussed: yes. Patient / Responsible Constitution Party agrees to proceed: yes Patient / Surrogate agrees to blood products: Yes DNR status not reviewed with patient and/or family prior to surgery. Significant changes in the patient condition since the History and Physical, not otherwise documented in primary service progress note: no. Potential Anesthesia issues that may suggest increased risk of complications or contraindication to planned procedure: none. Vitals Value Taken Time BP 148/78 04/15/24 0806 Pulse 59 04/15/24 0806 Resp 18 04/15/24 0806 Temp 36.4 ?C (97.5 ?F) 04/15/24 0806 SpO2 98 % 04/15/24 0806 Facility-Administered Medications as of 04/15/2024 Medication Dose Route Frequency - lidocaine (PF) 10 mg/mL (1 %) 1-2 mg injection (XYLOCAINE) 0.1-0.2 mL INTRADERMAL PRN - lactated ringers iv infusion 30 mL/hr INTRAVENOUS CONTINUOUS Outpatient Medications as of 04/15/2024 Medication Sig - ibuprofen (MOTRIN) 200 mg tablet Take 200 mg by mouth every 8 hours. - sildenafil (VIAGRA) 100 mg tablet Take 1 tablet by mouth once daily as needed. Take 30-60 minutes before sexual activity. - Tadalafil (CIALIS) 20 mg tablet Take 1 tablet by mouth as needed. As directed - omeprazole (PRILOSEC) 20 mg capsule Take 1 capsule by mouth once daily. I have interviewed and examined the patient. I have reviewed the medical record and/or the pre-anesthesia evaluation, pertinent labs, and test results. This contains updated information obtained within 48 hours of Surgery/Procedure. SIGNATURE: Symone Ivy MD PATIENT NAME: Sundeep Lopez DATE: April 15, 2024 TIME: 8:18 AM CSN: [id number] [facility] BRIEF OP NOTon 04-15-2024 BRIEF OP NOT HNO ID: [id number] Author: PADMINI VILLEGAS MD Service: General Surgery Author Type: Physician Type: Brief Op Note Filed: 04/15/2024 08:55 Note Text: BRIEF OPERATIVE NOTE SURGERY DATE: 04/15/2024 Incision/Procedure Start Time: 8:36 cecum time 8:42 Incision Close/Procedure End Time: 8:52 Surgeon(s)/Proceduralist(s) and Conversion Man(s): aruna Procedures: Screening high risk colonoscopy Anesthesia: MAC Findings: diverticulosis, hemorrhoids Estimated Blood Loss: 0 ml Specimens: None Complications: None Closure Technique: Non-primary Preop Diagnosis: history of colon polyps Postop Diagnosis: diverticulosis, hemorrhoids Patient was accompanied to the next level of care by a licensed practitioner from the surgical team pending completion of this brief op note (or operative note) RECOMMENDATIONS: surveillance colonoscpy in 5 years SIGNATURE: Padmini Villegas MD PATIENT NAME: Sundeep Lopez DATE: April 15, 2024 TIME: 8:53 AM Acct: [id number] [facility] HISTORY PHYSICALon HISTORY PHYSICAL HNO ID: [id number] Author: PADMINI VILLEGAS MD Service: General Surgery Author Type: Physician Type: H&P Filed: 04/15/2024 07:54 Note Text: HPI: Sundeep is a 73 year old male referred for endoscopy. Sundeep notes due for screening colonoscopy- hx of polyps (2023) AND family hx of colon cancer in father. Sundeep denies abdominal pain.. Sundeep denies diarrhea. Sundeep denies constipation. Sundeep denies a change in bowel habits. Sundeep denies melena. Sundeep denies bright red blood per rectum. Sundeep denies hemorrhoids. Sundeep has undergone prior endoscopy. Last colonoscopy was 02/18/[address] Herzog at [facility]. Sedation:Midazolam 4.5mg IV, Meperidine 100mg IV Impression: -non-thrombosed external hemorrhoids, non-thrombosed internal hemorrhoids, internal hemorrhoids that prolapse with straining, but spontaneously regress to the resting position (Grade 2) and enlarged prostate found on digital rectal exam. -one 18mm polyp in the cecum, removed using injection-lift and hot snare. Resected and retrieved. Clips were placed. -one 14mm polyp in the mid ascedning colon,removed with hot snare and removed using injection-lift and hot snare. Resected and retrieved. -diverticulosis in the entire examined colon. Pathology: A. Mid ascending colon polyp, biopsy: Fragments of tubular adenoma B. Cecal polyp, biopsy: Fragments of tubular adenoma. Benign lymphoid aggregates. Had an EGD completed at [facility] 08/[address] Farris. Sedation received:Fentanyl 100 micrograms IV, Midazolam 5 mg IV, Diphenhydramine 50 mg IV, Benzocaine spray CURRENT MEDICATIONS Current Outpatient Medications Medication Sig sildenafil (VIAGRA) 100 mg tablet Take 1 tablet by mouth once daily as needed. Take 30-60 minutes before sexual activity. Tadalafil (CIALIS) 20 mg tablet Take 1 tablet by mouth as needed. As directed omeprazole (PRILOSEC) 20 mg capsule Take 1 capsule by mouth once daily. No current facility-administered medications for this visit. ALLERGIES: Patient has no known allergies. PAST MEDICAL HISTORY PAST MEDICAL HISTORY Diagnosis Date Wahl's esophagus [...] hemorrhoids without mention of complication Hemorrhoids Vertigo PAST SURGICAL HISTORY PAST SURGICAL HISTORY Procedure Laterality Date COLONOSCOPY FLX DX W/COLLJ SPEC WHEN PFRMD 06/01/2004 Colonoscopy COLONOSCOPY FLX DX W/COLLJ SPEC WHEN PFRMD 02/07/2012 COLONOSCOPY FLX DX W/COLLJ SPEC WHEN PFRMD 03/04/2017 Next colon in 5 years--[facility] Herzog EGD 08/22/2020 Dr. Anthony Herzog-[facility]-repeat in 3 years EGD 09/12/2023 EGD TRANSORAL BIOPSY SINGLE/MULTIPLE 02/07/2012 EGD TRANSORAL BIOPSY SINGLE/MULTIPLE 04/04/2014 ESOPHAGOGASTRODUODENOSCOPY TRANSORAL DIAGNOSTIC 03/04/2017 Next EGD in 3 years--[facility]. M[facility] GASTROESOPHAG REFLX TEST W/TELEMTRY PH ELTRD 04/04/2014 LAPS SURG ESOPG/GSTR FUNDOPLASTY 07/06/2014 ROTATOR CUFF REPAIR 2009 left RPR 1ST INGUN HRNA AGE 5 YRS/> REDUCIBLE Hernia repair, inguinal bilat FAMILY HISTORY FAMILY HISTORY Problem Relation Age of Onset None Mother Hypertension Father Colon Cancer Father 60 Heart Father Ischemic Heart Disease Father None Brother SOCIAL HISTORY Social History Tobacco Use Smoking status: Never Smokeless tobacco: Never Vaping Use Vaping status: Never Used Substance Use Topics Alcohol use: Yes Comment: moderate Drug use: No REVIEW OF SYMPTOMS: The review of systems data was entered by the nurse and reviewed by me SEE NURSING NOTE PHYSICAL EXAMINATION: General: The patient is 73 year old, male well nourished, well hydrated in no acute distress. The patient is oriented to time, place, and person. VITALS: Blood pressure 137/85, pulse 70, height 170.2 cm (5' 7), weight 73.4 kg (161 lb 12.8 oz), SpO2 97%. Body mass index is 25.34 kg/m?. HEENT: Normal cephalic, ataumatic, pupils are equally round, sclera are anicteric, mucous membranes are moist, oropharynx is clear. Neck has no masses, asymmetry or lymphadenopathy. Respiratory: Clear to auscultation and percussion. Normal respiratory excursion and pattern. Cardiac: Examination is regular rate and rhythm. Normal S1/S2 Abdominal exam: Soft, nontender, with no palpable masses. No hepatosplenomegaly. No palpable hernias. Extremities: no clubbing, cyanosis or edema. No adenopathy. LABORATORY VALUES: As Noted RADIOLOGIC STUDIES: As Noted Assessment IMPRESSION: screen for colon cancer, family history of colon cancer, personal history of colon polyps PLAN: I have reviewe (more content not included)... Normal [facility] OPERATIVE NOon 04-15-2024 OPERATIVE NO HNO ID: [id number] Author: PADMINI VILLEGAS MD Service: General Surgery Author Type: Physician Type: Operative Report Filed: 04/15/2024 15:32 Note Text: [facility] - Operative Report - SUNDEEP Chase : 1950 AGE: 73. SEX: M PATIENT TYPE: O HOSP SVC: Surgical LOCATION: [facility] ATTENDING PHYSICIAN: Padmini Villegas MD CSN NUMBER: [id number] DATE OF SURGERY/PROCEDURE: 04/15/2024 INCISION/PROCEDURE START TIME: 8:36 AM INCISION CLOSE/PROCEDURE END TIME: 8:52 AM PREOPERATIVE DIAGNOSIS: History of colon polyps. POSTOPERATIVE DIAGNOSIS: Diverticulosis, hemorrhoids, and history of colon polyps. SURGEON: Padmini Villegas MD SWAHILI TEACHER: No Additional Staff SURGERY/PROCEDURE: screening colonoscopy ANESTHESIA: MAC LOCATION: [facility]. INDICATIONS: Sundeep Lopez is a 73-year-old male, who presents with a history of colon polyps. He last had a colonoscopy in 2023 (at an outside from [facility] medical facility), for which the endoscopist recommended another colonoscopy in a year. He has been counseled on the risks of procedure including, but not limited to infection, bleeding, perforation of GI tract, inability to complete the procedure, injury to any internal organs, etc. The patient understands and agrees to proceed. DESCRIPTION OF PROCEDURE: After informed consent was given, the patient was brought to the endoscopy suite. Appropriate time-out protocol was followed. He was placed in left lateral decubitus position. He was given IV anesthesia by the anesthesia provider. The colonoscope was lubricated and carefully inserted in the patient's anus and advanced into the rectum. It was then advanced into the sigmoid colon, then left colon, past the splenic flexure into transverse colon, past the hepatic flexure into the right colon, then into the cecum. The cecum was identified by transillumination, confluence of teniae coli, identification of ileocecal valve, appendiceal orifice, and external palpation. At this level, the colonoscope was slowly retracted back and entire colonic mucosal surface was examined. The colon cleansing preparation was adequate. There was no evidence of any masses, polyps, lesions in the right colon. No evidence of any masses, polyps, lesions in the transverse colon. No evidence of any masses, polyps, lesions in the left colon. No evidence of any masses or polyps in the sigmoid colon. The patient did have small- to-medium size multiple diverticula in the sigmoid colon. There was no evidence of any masses or polyps in the rectum. Retroflexed view of the rectum revealed hemorrhoidal changes, but no active inflammation or bleeding. The endoscope was removed intact. Digital examination of the anal canal revealed no palpable masses. The patient tolerated the procedure well and was brought to recovery room in stable condition. ESTIMATED BLOOD LOSS: None. SPECIMENS: None. COMPLICATIONS: None. RECOMMENDATIONS: Surveillance colonoscopy in 5 years. Padmini Villegas MD LW:[id number] /[id number] Normal [facility] CNOVon 02-24-2024 CN Office Visit (GENSWS ) SUNDEEP LOPEZ ([id number]) 1950 Date Time Provider Department 02/24/24 8:30 AM LATOYA AL During your visit today, we recorded the following information about you: Pulse Blood pressure Weight Height 70/minute 137/85 73.4 kg 1.702 m Latoya Al APRN.CNP 02/24/2024 9:16 AM Signed HISTORY AND PHYSICAL Sundeep Lopez : 1950 REFERRING PHYSICIAN: Alexandr Farris III [address] [facility] [address] CHIEF COMPLAINT: Patient presents with: New Patient: Consult - Colonoscopy consult HPI: Sundeep is a 73 year old male referred for endoscopy. Sundeep notes due for screening colonoscopy- hx of polyps (2023) AND family hx of colon cancer in father. Sundeep denies abdominal pain.. Sundeep denies diarrhea. Sundeep denies constipation. Sundeep denies a change in bowel habits. Sundeep denies melena. Sundeep denies bright red blood per rectum. Sundeep denies hemorrhoids. Sundeep has undergone prior endoscopy. Last colonoscopy was 02/18/[address] Herzog at [facility]. Sedation:Midazolam 4.5mg IV, Meperidine 100mg IV Impression: -non-thrombosed external hemorrhoids, non-thrombosed internal hemorrhoids, internal hemorrhoids that prolapse with straining, but spontaneously regress to the resting position (Grade 2) and enlarged prostate found on digital rectal exam. -one 18mm polyp in the cecum, removed using injection-lift and hot snare. Resected and retrieved. Clips were placed. -one 14mm polyp in the mid ascedning colon,removed with hot snare and removed using injection-lift and hot snare. Resected and retrieved. -diverticulosis in the entire examined colon. Pathology: A. Mid ascending colon polyp, biopsy: Fragments of tubular adenoma B. Cecal polyp, biopsy: Fragments of tubular adenoma. Benign lymphoid aggregates. Had an EGD completed at [facility] 08/[address] Farris. Sedation received:Fentanyl 100 micrograms IV, Midazolam 5 mg IV, Diphenhydramine 50 mg IV, Benzocaine spray Current Outpatient Medications Medication Sig sildenafil (VIAGRA) 100 mg tablet Take 1 tablet by mouth once daily as needed. Take 30-60 minutes before sexual activity. Tadalafil (CIALIS) 20 mg tablet Take 1 tablet by mouth as needed. As directed omeprazole (PRILOSEC) 20 mg capsule Take 1 capsule by mouth once daily. No current facility-administered medications for this visit. ALLERGIES: Patient has no known allergies. PAST MEDICAL HISTORY Diagnosis Date Wahl's esophagus [...] hemorrhoids without mention of complication Hemorrhoids Vertigo PAST SURGICAL HISTORY Procedure Laterality Date COLONOSCOPY FLX DX W/COLLJ SPEC WHEN PFRMD 06/01/2004 Colonoscopy COLONOSCOPY FLX DX W/COLLJ SPEC WHEN PFRMD 02/07/2012 COLONOSCOPY FLX DX W/COLLJ SPEC WHEN PFRMD 03/04/2017 [facility]2020 Dr. 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/> REDUCIBLE Hernia repair, inguinal bilat FAMILY HISTORY Problem Relation Age of Onset None Mother Hypertension Father Colon Cancer Father 60 Heart Father Ischemic Heart Disease Father None Brother Social History Tobacco Use Smoking status: Never Smokeless tobacco: Never Vaping Use Vaping status: Never Used Substance Use Topics Alcohol use: Yes Comment: moderate Drug use: No REVIEW OF SYMPTOMS: The review of systems data was entered by the nurse and reviewed by me SEE NURSING NOTE PHYSICAL EXAMINATION: General: The patient is 73 year old, male well nourished, well hydrated in no acute distress. The patient is oriented to time, place, and person. VITALS: Blood pressure 137/85, pulse 70, height 170.2 cm (5' 7), weight 73.4 kg (161 lb 12.8 oz), SpO2 97%. Body mass index is 25.34 kg/m?. HEENT: Normal cephalic, ataumatic, pupils are equally round, sclera are anicteric, mucous membranes are moist, oropharynx is clear. Neck has no masses, asymmetry or lymphadenopathy. Respiratory: Clear to auscultation and percussion. Normal respiratory excursion and pattern. Cardiac: Examinat (more content not included)... Normal [facility] CNPNon 02-24-2024 CNPN Telephone ([facility]) SUNDEEP LOPEZ ([id number]) 1950 M Date Time Provider Department 02/24/24 LATOYA AL During your visit today, we recorded the following information about you: Mitch Kumar 02/24/2024 9:57 AM Signed 04-15-2024 colonoscopy provider went over prep instructions and gave direct number to call Mitch Kumar Allergies As of Date: 02/24/2024 (No Known Allergies) Date Reviewed: 02/24/2024 Reviewed by: Padmini Tobin MA - Fully Assessed Prescriptions as of 05/12/2024 - ibuprofen (MOTRIN) 200 mg tablet Take 200 mg by mouth every 8 hours. - sildenafil (VIAGRA) 100 mg tablet Take 1 tablet by mouth once daily as needed. Take 30-60 minutes before sexual activity. - Tadalafil (CIALIS) 20 mg tablet Take 1 tablet by mouth as needed. As directed - omeprazole (PRILOSEC) 20 mg capsule Take 1 capsule by mouth once daily. 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] 11/18/2018 Imbalance due to old stroke [I69.398, R26.89] 11/18/2018 Encounter Status:Closed by MITCH KUMAR on 05/12/24 Normal [facility] Comprehensive metabolic 2000 panelon 10-22-2023 Albumin [Mass/Vol] 4.1 g/dL 3.9 - 4.9 g/dL [facility] ALP [Catalytic activity/Vol] 82 U/L 38 - 113 U/L [facility] ALT [Catalytic activity/Vol] 17 U/L 10 - 54 U/L [facility] Anion gap [Moles/Vol] 12 mmol/L 8 - 15 mmol/L [facility] AST [Catalytic activity/Vol] 25 U/L 14 - 40 U/L [facility] Bilirubin [Mass/Vol] 0.5 mg/dL 0.2 - 1.3 mg/dL [facility] Calcium [Mass/Vol] 9.7 mg/dL 8.5 - 10. 2 mg/dL [facility] Chloride [Moles/Vol] 102 mmol/L 98 - 107 mmol/L [facility] CO2 [Moles/Vol] 24 mmol/L 22 - 30 mmol/L [facility] Creatinine [Mass/Vol] 1.05 mg/dL 0.73 - 1.22 mg/dL [facility] GFR/1.73 sq M.predicted among non-blacks MDRD (S/P/Bld) [Vol rate/Area] 76 mL/min/{1.73_m2} - PINF [facility] Comment on above: Estimated Glomerular Filtration Rate (eGFR) is calculated using the 2020 CKD-EPI creatinine equation. This equation utilizes serum creatinine, sex, and age as parameters. The creatinine assay has traceable calibration to isotope dilution-mass spectrometry. Refer to KDIGO guidelines for clinical interpretation. In patients with unstable renal function, e.g. those with acute kidney injury, the eGFR may not accurately reflect actual GFR. Glucose [Mass/Vol] 84 mg/dL 74 - 99 mg/dL [facility] Comment on above: The [place] Diab[employer] Association (ADA) provides guidance for cutoff values for fasting glucose and random glucose. The ADA defines fasting as no caloric intake for at least 8 hours. Fasting plasma glucose results between 100 to 125 mg/dL indicate increased risk for diabetes (prediabetes). Fasting plasma glucose results greater than or equal to 126 mg/dL meet the criteria for diagnosis of diabetes. In the absence of unequivocal hyperglycemia, results should be confirmed by repeat testing. In a patient with classic symptoms of hyperglycemia or hyperglycemic crisis, random plasma glucose results greater than or equal to 200 mg/dL meet the criteria for diagnosis of diabetes. Reference: Standards of Medical Care in Diabetes 2016, [place] [employer]. Diabetes Care. 2016.39(Suppl 1). Interpretation and review of laboratory results Normal [facility] Potassium [Moles/Vol] 4.5 mmol/L 3.7 - 5.1 mmol/L [facility] Protein [Mass/Vol] 7.5 g/dL 6.3 - 8.0 g/dL [facility] Sodium [Moles/Vol] 138 mmol/L 136 - 144 mmol/L [facility] Urea nitrogen [Mass/Vol] 18 mg/dL 9 - 24 mg/dL [facility] MAGNESIUMon 10-22-2023 Magnesium [Mass/Vol] 2.4 mg/dL High 1.7 - 2.3 mg/dL [facility] Magnesium [Mass/Vol]on 10-21 Interpretation and review of laboratory results Abnormal [facility] No Panel Informationon 10-21 [facility] CBC panel Auto (Bld)on 10-20 Erythrocyte distribution width (RBC) [Ratio] 12.2 % 11.5 - 15.0 % [facility] Hematocrit (Bld) [Volume fraction] 47.5 % 39.0 - 51.0 % [facility] Hemoglobin (Bld) [Mass/Vol] 15.8 g/dL 13.0 - 17.0 g/dL [facility] Interpretation and review of laboratory results Normal [facility] MCH (RBC) [Entitic mass] 33.1 pg 26.0 - 34.0 pg [facility] MCHC (RBC) [Mass/Vol] 33.3 g/dL 30.5 - 36.0 g/dL [facility] MCV (RBC) [Entitic vol] 99.4 fL 80.0 - 100.0 fL [facility] Nucleated RBC (Bld) [#/Vol] NINF [facility] Platelet mean volume (Bld) [Entitic vol] 9.2 fL 9.0 - 12.7 fL [facility] Platelets (Bld) [#/Vol] 290 10*3/uL [facility] RBC (Bld) [#/Vol] 4.78 10*6/uL 4.20 - 6.0 0 m/uL [facility] WBC (Bld) [#/Vol] 8.17 10*3/uL [facility] Erythrocyte distribution width (RBC) [Ratio] 12.2 % Normal 11.5-15.0 [facility] Comment on above: Order Comment: Speci men Type: BLOOD SPECIMENOrdering Facility: [facility] Address: [address] [place] [address] Performed By: #### 5 8410-2 ####[facility] LABCLIA [id number] [place] [address] [place] Hematocrit (Bld) [Volume fraction] 47.5 % Normal 39.0-51.0 [facility] Comment on above: Order Comment: Speci men Type: BLOOD SPECIMENOrdering Facility: [facility] Address: [address] [place] [address] Performed By: #### 5 8410-2 ####[facility] [id number] [place] [address] [place] Hemoglobin (Bld) [Mass/Vol] 15.8 g/dL Normal 13.0-17.0 [facility] Comment on above: Order Comment: Speci men Type: BLOOD SPECIMENOrdering Facility: [facility] Address: [address] [place] [address] Performed By: #### 5 8410-2 ####[facility] [id number] [place] [address] [place] MCH (RBC) [Entitic mass] 33.1 pg Normal 26.0-34.0 [facility] Comment on above: Order Comment: Speci men Type: BLOOD SPECIMENOrdering Facility: [facility] Address: [address] [place] [address] Performed By: #### 5 8410-2 ####[facility] [id number] [place] [address] [place] MCHC (RBC) [Mass/Vol] 33.3 g/dL Normal 30.5-36.0 [facility] Comment on above: Order Comment: Speci men Type: BLOOD SPECIMENOrdering Facility: [facility] Address: [address] [place] [address] Performed By: #### 5 8410-2 ####[facility] LABIA [id number] [place] [address] [place] MCV (RBC) [Entitic vol] 99.4 fL Normal 80.0-100.0 [facility] Comment on above: Order Comment: Speci men Type: BLOOD SPECIMENOrdering Facility: [facility] Address: [address] [place] [address] Performed By: #### 5 8410-2 ####[facility] LABIA [id number] [place] [address] [place] Nucleated RBC (Bld) [#/Vol] 10*3/uL Normal <0.01 [facility] Comment on above: Order Comment: Speci men Type: BLOOD SPECIMENOrdering Facility: [facility] Address: [address] [place] [address] Performed By: #### 5 8410-2 ####[facility] LABIA [id number] [place] [address] [place] Platelet mean volume (Bld) [Entitic vol] 9.2 fL Normal 9.0-12.7 [facility] Comment on above: Order Comment: Speci men Type: BLOOD SPECIMENOrdering Facility: [facility] Address: [address] [place] [address] Performed By: #### 5 8410-2 ####[facility] LABIA [id number] [place] [address] [place] Platelets (Bld) [#/Vol] 290 10*3/uL Normal 150-400 [facility] Comment on above: Order Comment: Speci men Type: BLOOD SPECIMENOrdering Facility: [facility] Address: [address] [place] [address] Performed By: #### 5 8410-2 ####[facility] LABIA [id number] [place] [address] [place] RBC (Bld) [#/Vol] 4.78 10*6/uL Normal 4.20-6.00 [facility] Comment on above: Order Comment: Speci men Type: BLOOD SPECIMENOrdering Facility: [facility] Address: [address] [place] [address] Performed By: #### 5 8410-2 ####[facility] LABCLIA [id number] [address] [address] [place] WBC (Bld) [#/Vol] 8.17 10*3/uL Normal 3.70-11.00 [facility] Comment on above: Order Comment: Speci men Type: BLOOD SPECIMENOrdering Facility: [facility] Address: [address] [facility] [address] [place] [id number] Performed By: #### 5 8410-2 ####[facility] LABCLIA [id number] [place] [id number] [place] CNOVon 10-21-2023 CNOV Office Visit (INTMWS ) SUNDEEP LOPEZ ([id number]) 1950 M Date Time Provider Department 10/21/23 1:20 PM MAGALYS LARSON INTMWS During your visit today, we recorded the following information about you: Temperature Pulse Respiration Blood pressure 98.7 degrees 56/minute 16/minute 122/80 Weight Height 72.5 kg 1.69 m Magalys Larson MD 11/17/2023 1:02 AM Signed This note was created using ThinkSmartriter. Subjective Sundeep Lopez is a 72 year old male. HISTORY Sundeep Lopez is a 72 year old gentleman here for yearly exam and follow up appointment. (declined to do Medicare Wellness given multiple medical issues needed to address) Patient is a 72-year-old male presenting with multiple concerns, including left-sided jaw clicking, bilateral hip stiffness, hearing difficulties, and balance issues. Patient reports a persistent clicking sound in the left jaw, which began after using a new oral appliance for sleep apnea. He describes the sound as occurring all the time and notes that it is particularly noticeable when chewing hard or crunchy foods. He denies any associated pain or jaw clenching/grinding during sleep. Patient also reports bilateral hip stiffness, more pronounced on the left side, upon waking in the morning and after prolonged sitting. He describes the stiffness as improving with movement. He currently performs stretching exercises before biking or running, which he finds helpful. Patient has a history of hearing loss and currently uses hearing aids. Despite this, he reports difficulty hearing conversations, especially in the presence of background noise. He also notes a tendency for his mind to wander during conversations, which he attributes to a vivid imagination. He denies any formal diagnosis of ADHD but mentions that his daughter exhibits similar tendencies. Patient has a history of a small ischemic stroke, which he does not recall but was identified by a neurologist based on imaging studies. He reports ongoing balance issues, particularly in low-light conditions, but denies any dizziness or spinning sensations. He has undergone therapy for balance issues and uses grove for support when walking in the dark. He declines the use of a cane or walking stick. Patient is currently taking omeprazole for GERD and has a history of Wahl's esophagus. He reports that his GERD is well-controlled with the medication. He also mentions a previous fundoplication procedure. He denies any current feelings of depression. Does have HCDPOA and LW. Surrogate decision maker is PAST MEDICAL HISTORY 03/14/2014: Wahl's esophagus determined by endoscopy No date: Diverticulosis of colon (without mention of hemorrhage) Comment: Diverticulosis No date: Family history of malignant neoplasm of gastrointestinal tract No date: GERD (gastroesophageal reflux disease) No date: Inguinal hernia without mention of obstruction or gangrene, unilateral or unspecified, (not specified as recurrent) No date: Sensorineural hearing loss, unilateral, left ear, with restricted hearing on the contralateral side No date: Unspecified hemorrhoids without mention of complication Comment: Hemorrhoids No date: Vertigo Current Outpatient Medications Medication Sig omeprazole (PRILOSEC) 20 mg capsule Take 1 capsule by mouth once daily. Tadalafil (CIALIS) 20 mg tab(s) Take 1 tablet by mouth as needed. As directed No current facility-administered medications for this visit. ALLERGIES No Known Allergies FAMILY HISTORY Problem Relation Age of Onset Hypertension Father Colon Cancer Father 60 Heart Father Ischemic Heart Disease Father None Mother None Brother Social History Tobacco Use Smoking status: Never Smokeless tobacco: Never Substance Use Topics Alcohol use: Yes Comment: moderate Drug use: No Review of Systems Objective BP 122/80 Pulse (!) 56 Temp 37.1 ?C (98.7 ?F) Resp 16 Ht 169 cm (5' 6.54) Wt 72.5 kg (159 lb 13.3 oz) SpO2 98% BMI 25.38 kg/m? Last 5 Encounter Wt Readings: Date: Wt: 10/21/2023 72.5 kg (159 lb 13.3 oz) 09/12/2023 71.2 kg (156 lb 15.5 oz) 08/19/2023 71.2 kg (157 lb) 10/15/2022 67.1 kg (147 lb 14.4 oz) 10/02/2021 68.5 kg (151 lb) No waist measurement recorded Estimated body mass index is 25.38 kg/m? as calculated from the following: Height as of this encounter: 169 cm (5' 6.54). Weight as of this encounter: 72.5 kg (159 lb 13.3 oz). Last 5 Encounter BP Readings: Date: BP: 10/21/2023 122/80 09/12/2023 122/90 08/19/2023 134/85 10/15/2022 108/68 10/02/2021 122/72 Physical Exam Vitals reviewed. Constitutional: Appearance: Normal appearance. HENT: Head: Normocephalic. Right Ear: Tympanic membrane, ear canal and external ear normal. Left Ear: Tympanic membrane, ear canal and external ear normal. Mouth/Throat: (more content not included)... Normal [facility] Comprehensive metabolic 2000 panelon 10-21-2023 Albumin [Mass/Vol] 4.1 g/dL Normal 3.9-4.9 [facility] Comment on above: Order Comment: Speci men Type: BLOOD SPECIMENOrdering Facility: [facility] Address: [address] [place] [address] Performed By: #### 2 4323-8, 29694-4 ####[facility] LABCLIA [id number] [facility] [id number] [address] [place] ALP [Catalytic activity/Vol] 82 U/L Normal 38-113 [facility] Comment on above: Order Comment: Speci men Type: BLOOD SPECIMENOrdering Facility: [facility] Address: [address] [place] [address] Performed By: #### 2 4323-8, ####[facility] LABCLIA [id number] [place] [address] [place] ALT [Catalytic activity/Vol] 17 U/L Normal 10-54 [facility] Comment on above: Order Comment: Speci men Type: BLOOD SPECIMENOrdering Facility: [facility] Address: [address] [place] [address] Performed By: #### 2 4323-8, ####[facility] LABCLIA [id number] [place] [address] [place] Anion gap [Moles/Vol] 12 mmol/L Normal 8-15 [facility] Comment on above: Order Comment: Speci men Type: BLOOD SPECIMENOrdering Facility: [facility] Address: [address] [place] [address] Performed By: #### 2 4323-8, ####[facility] LABCLIA [id number] [place] [address] [place] AST [Catalytic activity/Vol] 25 U/L Normal 14-40 [facility] Comment on above: Order Comment: Speci men Type: BLOOD SPECIMENOrdering Facility: [facility] Address: [address] [place] [address] Performed By: #### 2 4323-8, ####[facility] LABCLIA [id number] [place] [address] [place] Bilirubin [Mass/Vol] 0.5 mg/dL Normal 0.2-1.3 [facility] Comment on above: Order Comment: Speci men Type: BLOOD SPECIMENOrdering Facility: [facility] Address: [address] [place] [address] Performed By: #### 2 4323-8, ####[facility] LABCLIA [id number] [address] [address] [place] Calcium [Mass/Vol] 9.7 mg/dL Normal 8.5-10.2 [facility] Comment on above: Order Comment: Speci men Type: BLOOD SPECIMENOrdering Facility: [facility] Address: [address] [place], [place] [address] Performed By: #### 2 432-8, ####[facility] LABCLIA [id number] [place] [address] [place] Chloride [Moles/Vol] 102 mmol/L Normal 98-107 [facility] Comment on above: Order Comment: Speci men Type: BLOOD SPECIMENOrdering Facility: [facility] Address: [address] [place], [place] [address] Performed By: #### 2 4328, ####[facility] LABCLIA [id number] [place] [address] [place] CO2 [Moles/Vol] 24 mmol/L Normal 22-30 [facility] Comment on above: Order Comment: Speci men Type: BLOOD SPECIMENOrdering Facility: [facility] Address: [address] [place], [place] [address] Performed By: #### 2 432-8, ####[facility] LABCLIA [id number] [place] [id number] [place] Creatinine [Mass/Vol] 1.05 mg/dL Normal 0.73-1.22 [facility] Comment on above: Order Comment: Speci men Type: BLOOD SPECIMENOrdering Facility: [facility] Address: [address] [place], [place] [address] Performed By: #### 2 4323-8, ####[facility] LABCLIA [id number] [place] [address] [place] Creatinine and Glomerular filtration rate.predicted panel (S/P/Bld) 76 mL/min/1.73m??? Normal >=60 [facility] Comment on above: Order Comment: Adeola monroe Type: BLOOD SPECIMENOrdering Facility: [facility] Address: [address] [place] [address] Result Comment: Cadence mated Glomerular Filtration Rate (eGFR) is calculated using the 2020 CKD-EPI creatinine equation. This equation utilizes serum creatinine, sex, and age as parameters. The creatinine assay has traceable calibration to isotope dilution-mass spectrometry. Refer to KDIGO guidelines for clinical interpretation. In patients with unstable renal function, e.g. those with acute kidney injury, the eGFR may not accurately reflect actual GFR. Performed By: #### 2 4323-8, 98105-6 ####[facility] [id number] [place] [address] [place] [facility] Glucose [Mass/Vol] 84 mg/dL Normal 74-99 [facility] Comment on above: Order Comment: Adeola monroe Type: BLOOD SPECIMENOrdering Facility: [facility] Address: [address] [place] [address] Result Comment: The [place] [employer] (ADA) provides guidance for cutoff values for fasting glucose and random glucose. The ADA defines fasting as no caloric intake for at least 8 hours. Fasting plasma glucose results between 100 to 125 mg/dL indicate increased risk for diabetes (prediabetes). Fasting plasma glucose results greater than or equal to 126 mg/dL meet the criteria for diagnosis of diabetes. In the absence of unequivocal hyperglycemia, results should be confirmed by repeat testing. In a patient with classic symptoms of hyperglycemia or hyperglycemic crisis, random plasma glucose results greater than or equal to 200 mg/dL meet the criteria for diagnosis of diabetes. Reference: Standards of Medical Care in Diabetes 2016, [place] [employer]. Diabetes Care. 2016.39(Suppl 1). Performed By: #### 2 4323-8, 92759-1 ####[facility] [id number] [place] [id number] [place] Potassium [Moles/Vol] 4.5 mmol/L Normal 3.7-5.1 [facility] Comment on above: Order Comment: Speci men Type: BLOOD SPECIMENOrdering Facility: [facility] Address: [address] [place] [address] Performed By: #### 2 4323-8, ####[facility] LABCLIA [id number] [place] [address] [place] Protein [Mass/Vol] 7.5 g/dL Normal 6.3-8.0 [facility] Comment on above: Order Comment: Speci men Type: BLOOD SPECIMENOrdering Facility: [facility] Address: [address] [place] [address] Performed By: #### 2 4323-8, ####[facility] LABCLIA [id number] [place] [address] [place] Sodium [Moles/Vol] 138 mmol/L Normal 136-144 [facility] Comment on above: Order Comment: Speci men Type: BLOOD SPECIMENOrdering Facility: [facility] Address: [address] [place] [address] Performed By: #### 2 4323-8, ####[facility]CL[facility] [id number] [place] [address] [place] Urea nitrogen [Mass/Vol] 18 mg/dL Normal 9-24 [facility] Comment on above: Order Comment: Speci men Type: BLOOD SPECIMENOrdering Facility: [facility] Address: [address] [place] [address] Performed By: #### 2 4323-8, ####[facility]CL[facility] [id number] [place] [id number] [place] Magnesium SerPl-mCncon 10-20 Magnesium [Mass/Vol] 2.4 mg/dL High 1.7-2.3 [facility] Comment on above: Order Comment: Speci men Type: BLOOD SPECIMENOrdering Facility: [facility] Address: [address] [place] [address] Performed By: #### 2 4323-8, 84180-2 ####[facility] LABCLDEBORAH [id number] [place] [id number] OF [facility] CNOVon 09-19-2023 CNOV Office Visit (GENSWS ) SUNDEEP LOPEZ ([id number]) 1950 Date Time Provider Department 09/19/23 1:00 PM LATOYA AL During your visit today, we recorded the following information about you: Latoya Al APRN.GRAPPLE [employer]W LEADER 09/19/2023 2:59 PM Signed FOLLOW UP VISIT - ENDOSCOPY Sundeep Lopez 1950 [id number] REFERRING PHYSICIAN: Alexandr Farris III [address] [facility] [address] Sundeep Lopez is a patient I am following for history of Wahl's esophagus. Dr. Farris performed upper endoscopy on 09/12/2023. The patient was found to have Impression: - Esophageal mucosal changes suspicious for short-segment Wahl's esophagus. Biopsied. - Z-line variable, 40 cm from the incisors. - Normal stomach. Biopsied. - Normal examined duodenum. Biopsied. Pathology: FINAL DIAGNOSIS A. Duodenum, biopsy: - Duodenal mucosa with no significant diagnostic alteration. B. Stomach, antrum, biopsy: - Gastric antral mucosa with no significant diagnostic alteration. C. Esophagus, distal, biopsy: - Squamous epithelium with features of reflux. - Inflamed gastric cardia-type mucosa. - No evidence of intestinal metaplasia or dysplasia. D. Esophagus, mid, biopsy: - Squamous epithelium with no significant diagnostic alteration. The patient notes no complaints since the procedure. VITALS: There were no vitals taken for this visit. General: patient is alert, cooperative, pleasant and in no acute distress On examination, the abdomen is benign. Assessment ASSESSMENT/PLAN: 1. Wahl's esophagus determined by endoscopy - ICD9: 530.85, ICD10: K22.70 - Prilosec 20mg PO daily x 3 mos The operative findings and pathology report were reviewed with the patient, and the patient has had the opportunity to ask questions and have questions answered. If the patient notes any problems or changes in bowel function, the patient should contact me immediately. Otherwise I recommend follow up endoscopy in 3 years. HM updated and recall letter generated. Discussed treatment plan and patient voices understanding. Patient's questions answered appropriately. Return to the office as needed Latoya Al APRN.[employer] LEADER Referring Provider: ALEXANDR FARRIS [[id number]] Allergies As of Date: 09/19/2023 (No Known Allergies) Date Reviewed: 09/19/2023 Reviewed by: Kristal Tafoya LPN - Fully Assessed Reason for Visit: Follow Up [171] Cmt: 09/12/23 EGD follow up Primary Visit Diagnosis:Wahl's esophagus determined by endoscopy [K22.70] Order(s):omeprazole (PRILOSEC) 20 mg capsuleTake 1 capsule by mouth once daily.Disp: 30 capsuleRfl: 2 Prescriptions as of 09/19/2023 - omeprazole (PRILOSEC) 20 mg capsule Take 1 capsule by mouth once daily. - Tadalafil (CIALIS) 20 mg tab(s) Take 1 tablet by mouth as needed. 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 Encounter Status:Closed by LATOYA AL on 09/19/23 Normal [facility] [id number] 09-12-2023 [id number] HNO ID: [id number] Author: NATASHA VOGT, ZAIRA Service: ? Author Type: Registered Nurse Type: [id number] Filed: 09/12/2023 12:14 Note Text: The patient received a copy of EGD discharge instructions that contain information for how to contact the physician who performed the procedure and when to seek medical care. Normal [facility] EGD Study observation Narrat sonia 09-12-2023 [facility] Gastrointestinal Endoscopy Patient Name: Sundeep Lopez Procedure Date: 09/12/2023 11:42 AM Date of : 1950 Admit Type: Outpatient Age: 72 Gender: Male Note Status: Finalized Procedure: Upper GI endoscopy Indications: Screening for Wahl's esophagus Providers: Alexandr Farris MD Patient Profile: This is a 72 year old male. Refer to note in patient chart for documentation of history and physical. Referring Physician: Alexandr Farris MD (Referring MD) Medicines: Fentanyl 100 micrograms IV, Midazolam 5 mg IV, Diphenhydramine 50 mg IV, Benzocaine spray Complications: No immediate complications. Estimated blood loss: Minimal. Requesting Provider: Procedure: Pre-Anesthesia Assessment: - Prior to the procedure, a History and Physical was performed, and patient medications and allergies were reviewed. The patient's tolerance of previous anesthesia was also reviewed. The risks and benefits of the procedure and the sedation options and risks were discussed with the patient. All questions were answered, and informed consent was obtained. Prior Anticoagulants: The patient has taken no anticoagulant or antiplatelet agents. ASA Grade Assessment: II - A patient with mild systemic disease. After reviewing the risks and benefits, the patient was deemed in satisfactory condition to undergo the procedure. After obtaining informed consent, the endoscope was passed under direct vision. Throughout the procedure, the patient's blood pressure, pulse, and oxygen saturations were monitored continuously. The Endoscope was introduced through the mouth, and advanced to the second part of duodenum. The upper GI endoscopy was accomplished without difficulty. The patient tolerated the procedure well. Moderate Sedation: The administration of moderate sedation was initiated at 11:50 AM. Moderate (conscious) sedation was personally administered by the endoscopist. The following parameters were monitored: oxygen saturation, heart rate, blood pressure, respiratory rate, EKG, adequacy of pulmonary ventilation, and response to care. Total physician intraservice time was 8 minutes. Findings: There were esophageal mucosal changes suspicious for short-segment Wahl's esophagus present in the distal esophagus. The maximum longitudinal extent of these mucosal changes was 0.4 cm in length. This was biopsied with a cold forceps for histology. The Z-line was variable and was found 40 cm from the incisors. The entire examined stomach was normal. Biopsies were taken with a cold forceps for Helicobacter pylori testing. The examined duodenum was normal. Biopsies for histology were taken with a cold forceps for evaluation of celiac disease. Impression: - Esophageal mucosal changes suspicious for short-segment Wahl's esophagus. Biopsied. - Z-line variable, 40 cm from the incisors. - Normal stomach. Biopsied. - Normal examined duodenum. Biopsied. Recommendation: - Patient has a contact number available for emergencies. The signs and symptoms of potential delayed complications were discussed with the patient. Return to normal activities tomorrow. Written discharge instructions were provided to the patient. - Resume previous diet. - Continue present medications. - Await pathology results. - Repeat upper endoscopy in 3 years for surveillance. - Return to nurse practitioner in 1 week. Procedure Code(s): --- Professional --- 76920, Esophagogastroduodenoscopy, flexible, transoral; with biopsy, single or multiple Diagnosis Code(s): --- Professional --- K22.89, Other specified disease of esophagus Z13.810, Encounter for screening for upper gastrointestinal disorder CPT copyright 2020 [place] [employer]. All rights reserve (more content not included)... PROVATION [facility] Radiology Study observation (narrative) [facility] HISTORY PHYSICALon 4 HISTORY PHYSICAL HNO ID: [id number] Author: ALEXANDR FARRIS MD Service: General Surgery Author Type: Physician Type: H&P Filed: 09/12/2023 11:04 Note Text: HISTORY AND PHYSICAL Sundeep Lopez 1950 REFERRING PHYSICIAN: Magalys Larson MD CHIEF COMPLAINT: Consult (colonoscopy/EGD consult/) HPI: The patient is a 72 year old male referred for endoscopy. Sundeep notes no history of colon complaints. The patient notes no history of upper GI complaints. Sundeep has undergone prior endoscopy. Patient had an upper endoscopy in 2020 this was done for Wahl's esophagus The patient is being seen by me today at the request of Dr. Magalys Larson MD for my opinion and advice regarding Colon cancer screening Awhl's esophagus determined by endoscopy. PAST MEDICAL HISTORY PAST MEDICAL HISTORY Diagnosis Date Wahl's esophagus [...] hemorrhoids without mention of complication Hemorrhoids Vertigo PAST SURGICAL HISTORY PAST SURGICAL HISTORY Procedure Laterality Date COLONOSCOPY FLX DX W/COLLJ SPEC WHEN PFRMD 06/01/2004 Colonoscopy COLONOSCOPY FLX DX W/COLLJ SPEC WHEN PFRMD 02/07/2012 COLONOSCOPY FLX DX W/COLLJ SPEC WHEN PFRMD 03/04/2017 Next colon in 5 years--[facility] EGD 08/22/2020 Dr. Anthony Herzog-[facility]-repeat in 3 years EGD TRANSORAL BIOPSY SINGLE/MULTIPLE 02/07/2012 EGD TRANSORAL BIOPSY SINGLE/MULTIPLE 04/04/2014 ESOPHAGOGASTRODUODENOSCOPY TRANSORAL DIAGNOSTIC 03/04/2017 Next EGD in 3 years--[facility] GASTROESOPHAG REFLX TEST W/TELEMTRY PH ELTRD 04/04/2014 LAPS SURG ESOPG/GSTR FUNDOPLASTY 07/06/2014 ROTATOR CUFF REPAIR 2009 left RPR 1ST INGUN HRNA AGE 5 YRS/> REDUCIBLE Hernia repair, inguinal bilat CURRENT MEDICATIONS Current Outpatient Medications Medication Sig Tadalafil (CIALIS) 20 mg tab(s) Take 1 tablet by mouth as needed. As directed No current facility-administered medications for this visit. ALLERGIES: Patient has no known allergies. PERSONAL HISTORY: SOCIAL HISTORY Social History Tobacco Use Smoking status: Never Smokeless tobacco: Never Substance Use Topics Alcohol use: Yes Comment: moderate Drug use: No FAMILY HISTORY: FAMILY HISTORY FAMILY HISTORY Problem Relation Age of Onset Hypertension Father Colon Cancer Father 60 Heart Father Ischemic Heart Disease Father None Mother None Brother REVIEW OF SYMPTOMS: The review of systems data was entered by the nurse and reviewed by me There are no exam notes on file for this visit. PHYSICAL EXAMINATION: General: The patient is 72 year old male, well nourished, well hydrated in no acute distress. The patient is oriented to time, place, and person. VITALS: Blood pressure 134/85, pulse (!) 54, height 160.9 cm (5' 3.35), weight 71.2 kg (157 lb), SpO2 97%. Body mass index is 27.5 kg/m?. HEENT: Normal cephalic, ataumatic, pupils are equally round, sclera are anicteric, mucous membranes are moist, oropharynx is clear. Neck has no masses, asymmetry or lymphadenopathy. Thyroid is unremarkable. Respiratory: Clear to auscultation and percussion. Normal respiratory excursion and pattern. Cardiac: Examination is regular rate and rhythm. Abdominal exam: Soft, nontender, with no palpable masses. No hepatosplenomegaly. No palpable hernias. Rectal exam: exam deferred Extremities: no clubbing, cyanosis or edema. No adenopathy. Other: LABORATORY VALUES: As Noted RADIOLOGIC STUDIES: As Noted Assessment IMPRESSION: Colon cancer screening Wahl's esophagus determined by endoscopy PLAN: I plan to perform upper endoscopy. We discussed the risks and benefits of the planned endoscopy. I have informed the patient that complications can occur including failure to complete the endoscopy and perforation. The patient had the opportunity to ask questions concerning the planned endoscopy. My staff has also explained the procedure to the patient in understandable terms and has given the patient printed material concerning the procedure. The patient freely consents to surgery. Diagnoses: (Z12.11) Colon cancer screening (K22.70) Wahl's esophagus determined by endoscopy My findings have been communicated to Dr. Magalys Larson MD via shared medical record. This note will be forwarded to Dr. Magalys Larson MD. Return to Clinic: The patient is instructed to follow-up with me 1 week post operatively. __ Alexandr Farris III, MD UPDATED HISTORY AND PHYSICAL EXAMINATION SERVICE DATE: 09/12/2023 SERVICE TIME: 11:04 A (more content not included)... Normal [facility] NURSING PROGon 09-12-2023 NURSING PROG HNO ID: [id number] Author: NATASHA VOGT RN Service: ? Author Type: Registered Nurse Type: Nursing Progress Note Filed: 09/12/2023 12:12 Note Text: pt arrived to phase 2 resting on left side. at bedside. SR up x 2, call light in reach. Natasha Vogt RN Normal [facility] SURGICAL PATHOLOGYon 024 CASE REPORT Normal [facility] Comment on above: Order Comment: Speci men Type: TISSUE SPECIMENOrdering Facility: [facility] Address: [address] [place] [address] Result Comment: Surg [facility] Pathology Report Case: [id number] Authorizing Provider: Alexandr Farris MD Collected: 09/12/2023 11:50 AM Ordering Location: Ambulatory Surgery Received: 09/12/2023 12:20 PM Pathologist: Bowen Lopez MD Specimens: A) - Small Bowel, Duodenum, Biopsy B) - Stomach, Antrum, Biopsy, antral bx for H/H C) - Esophagus, Distal, Biopsy D) - Esophagus, Mid, Biopsy Performed By: #### S ####[facility] LABIA [id number] [address] [place] FINAL DIAGNOSIS Normal [facility] Comment on above: Order Comment: Speci men Type: TISSUE SPECIMENOrdering Facility: [facility] Address: [address] [place] [address] Result Comment: A. D uodenum, biopsy: - Duodenal mucosa with no significant diagnostic alteration. B. Stomach, antrum, biopsy: - Gastric antral mucosa with no significant diagnostic alteration. C. Esophagus, distal, biopsy: - Squamous epithelium with features of reflux. - Inflamed gastric cardia-type mucosa. - No evidence of intestinal metaplasia or dysplasia. D. Esophagus, mid, biopsy: - Squamous epithelium with no significant diagnostic alteration. Performed By: #### S ####[facility]CL[facility] [id number] [address] [place] FINAL PERFORMING LAB Normal [facility] Comment on above: Order Comment: Speci men Type: TISSUE SPECIMENOrdering Facility: [facility] Address: [address] [place] [address] Result Comment: Diag nostic interpretation performed at [facility], [address] [place] [address] CLIA# [id number] [employer] Manager: Ibrahima Ace M.D. Performed By: #### S ####[facility]CLIA [id number] [address] OF [facility] GROSS DESCRIPTION Normal [facility] Comment on above: Order Comment: Speci men Type: TISSUE SPECIMENOrdering Facility: [facility] Address: [address] [place] [address] Result Comment: A. S mall Bowel, Duodenum, Biopsy Received in formalin is one piece of williamson, soft tissue measuring 0.3 x 0.3 x 0.2 cm. Totally submitted in one cassette. B. Stomach, Antrum, Biopsy Received in formalin is one piece of williamson, soft tissue measuring 0.3 x 0.2 x 0.2 cm. Totally submitted in one cassette. C. Esophagus, Distal, Biopsy Received in formalin are multiple pieces of williamson, soft tissue aggregating to 0.6 x 0.4 x 0.2 cm. Totally submitted in one cassette. D. Esophagus, Mid, Biopsy Received in formalin are two pieces of williamson, soft tissue aggregating to 0.3 x 0.2 x 0.1 cm. Totally submitted in one cassette. JTS September 12, 2023 5:06 PM Gross examination performed at [facility], [address] [place] [address] Performed By: #### S ####[facility] LABCLIA [id number] [address] [address] [place] Upper GI endoscopyon 09-11-2 024 Upper GI endoscopy [facility] Gastrointestinal Endoscopy Patient Name: Sundeep Lpoez Procedure Date: 09/12/2023 11:42 AM Date of : 1950 Admit Type: Outpatient Age: 72 Gender: Male Note Status: Finalized Procedure: Upper GI endoscopy Indications: Screening for Wahl's esophagus Providers: Alexandr Farris MD Patient Profile: This is a 72 year old male. Refer to note in patient chart for documentation of history and physical. Referring Physician: Alexandr Farris MD (Referring MD) Medicines: Fentanyl 100 micrograms IV, Midazolam 5 mg IV, Diphenhydramine 50 mg IV, Benzocaine spray Complications: No immediate complications. Estimated blood loss: Minimal. Requesting Provider: Procedure: Pre-Anesthesia Assessment: - Prior to the procedure, a History and Physical was performed, and patient medications and allergies were reviewed. The patient's tolerance of previous anesthesia was also reviewed. The risks and benefits of the procedure and the sedation options and risks were discussed with the patient. All questions were answered, and informed consent was obtained. Prior Anticoagulants: The patient has taken no anticoagulant or antiplatelet agents. ASA Grade Assessment: II - A patient with mild systemic disease. After reviewing the risks and benefits, the patient was deemed in satisfactory condition to undergo the procedure. After obtaining informed consent, the endoscope was passed under direct vision. Throughout the procedure, the patient's blood pressure, pulse, and oxygen saturations were monitored continuously. The Endoscope was introduced through the mouth, and advanced to the second part of duodenum. The upper GI endoscopy was accomplished without difficulty. The patient tolerated the procedure well. Moderate Sedation: The administration of moderate sedation was initiated at 11:50 AM. Moderate (conscious) sedation was personally administered by the endoscopist. The following parameters were monitored: oxygen saturation, heart rate, blood pressure, respiratory rate, EKG, adequacy of pulmonary ventilation, and response to care. Total physician intraservice time was 8 minutes. Findings: There were esophageal mucosal changes suspicious for short-segment Wahl's esophagus present in the distal esophagus. The maximum longitudinal extent of these mucosal changes was 0.4 cm in length. This was biopsied with a cold forceps for histology. The Z-line was variable and was found 40 cm from the incisors. The entire examined stomach was normal. Biopsies were taken with a cold forceps for Helicobacter pylori testing. The examined duodenum was normal. Biopsies for histology were taken with a cold forceps for evaluation of celiac disease. Impression: - Esophageal mucosal changes suspicious for short-segment Wahl's esophagus. Biopsied. - Z-line variable, 40 cm from the incisors. - Normal stomach. Biopsied. - Normal examined duodenum. Biopsied. Recommendation: - Patient has a contact number available for emergencies. The signs and symptoms of potential delayed complications were discussed with the patient. Return to normal activities tomorrow. Written discharge instructions were provided to the patient. - Resume previous diet. - Continue present medications. - Await pathology results. - Repeat upper endoscopy in 3 years for surveillance. - Return to nurse practitioner in 1 week. Procedure Code(s): --- Professional --- 86385, Esophagogastroduodenoscopy, flexible, transoral; with biopsy, single or multiple Diagnosis Code(s): --- Professional --- K22.89, Other specified disease of esophagus Z13.810, Encounter for screening for upper gastrointestinal disorder CPT copyright 2020 [employer]. All rights reserved. The codes documented in this report are preliminary and upon senior oracle soa developer review may be revised to meet current compliance requirements. Attending Participation: I personally performed the entire procedure. Scope In: 11:54:51 AM Scope Out: 11:58:46 AM MD Alexandr Jimenes MD 09/12/2023 12:02:50 PM This report has been signed electronically by Alexandr Farris MD Number of Addenda: 0 Note Initiated On: 09/12/2023 11:42 AM Estimated Blood Loss: Estimated blood loss was minimal. Normal [facility] CNOVon 08-19-2023 CNOV Office Visit (GENSME ) SUNDEEP LOPEZ ([id number]) 1950 [place] Date Time Provider Department 08/19/23 10:45 AM ALEXANDR FARRIS During your visit today, we recorded the following information about you: Pulse Blood pressure Weight Height 54/minute 134/85 71.2 kg 1.609 m Alexandr Farris MD 09/10/2023 8:23 AM Signed HISTORY AND PHYSICAL Sundeep Mallory Diony 1950 REFERRING PHYSICIAN: Magalys Larson MD CHIEF COMPLAINT: Consult (colonoscopy/EGD consult/) HPI: The patient is a 72 year old male referred for endoscopy. Sundeep notes no history of colon complaints. The patient notes no history of upper GI complaints. Sundeep has undergone prior endoscopy. Patient had an upper endoscopy in 2020 this was done for Wahl's esophagus The patient is being seen by me today at the request of Dr. Magalys Larson MD for my opinion and advice regarding Colon cancer screening Wahl's esophagus determined by endoscopy. PAST MEDICAL HISTORY Diagnosis Date Wahl's esophagus [...] hemorrhoids without mention of complication Hemorrhoids Vertigo PAST SURGICAL HISTORY Procedure Laterality Date COLONOSCOPY FLX DX W/COLLJ SPEC WHEN PFRMD 06/01/2004 Colonoscopy COLONOSCOPY FLX DX W/COLLJ SPEC WHEN PFRMD 02/07/2012 COLONOSCOPY FLX DX W/COLLJ SPEC WHEN PFRMD 03/04/2017 [facility]2020 Dr. Anthony Herzog-[facility]-repeat in 3 years EGD TRANSORAL BIOPSY SINGLE/MULTIPLE 02/07/2012 EGD TRANSORAL BIOPSY SINGLE/MULTIPLE 04/04/2014 ESOPHAGOGASTRODUODENOSCOPY TRANSORAL DIAGNOSTIC 03/04/2017 Next EGD in 3 years[facility] GASTROESOPHAG REFLX TEST W/TELEMTRY PH ELTRD 04/04/2014 LAPS SURG ESOPG/GSTR FUNDOPLASTY 07/06/2014 ROTATOR CUFF REPAIR 2009 left RPR 1ST INGUN HRNA AGE 5 YRS/> REDUCIBLE Hernia repair, inguinal bilat Current Outpatient Medications Medication Sig Tadalafil (CIALIS) 20 mg tab(s) Take 1 tablet by mouth as needed. As directed No current facility-administered medications for this visit. ALLERGIES: Patient has no known allergies. PERSONAL HISTORY: Social History Tobacco Use Smoking status: Never Smokeless tobacco: Never Substance Use Topics Alcohol use: Yes Comment: moderate Drug use: No FAMILY HISTORY: FAMILY HISTORY Problem Relation Age of Onset Hypertension Father Colon Cancer Father 60 Heart Father Ischemic Heart Disease Father None Mother None Brother REVIEW OF SYMPTOMS: The review of systems data was entered by the nurse and reviewed by me There are no exam notes on file for this visit. PHYSICAL EXAMINATION: General: The patient is 72 year old male, well nourished, well hydrated in no acute distress. The patient is oriented to time, place, and person. VITALS: Blood pressure 134/85, pulse (!) 54, height 160.9 cm (5' 3.35), weight 71.2 kg (157 lb), SpO2 97%. Body mass index is 27.5 kg/m?. HEENT: Normal cephalic, ataumatic, pupils are equally round, sclera are anicteric, mucous membranes are moist, oropharynx is clear. Neck has no masses, asymmetry or lymphadenopathy. Thyroid is unremarkable. Respiratory: Clear to auscultation and percussion. Normal respiratory excursion and pattern. Cardiac: Examination is regular rate and rhythm. Abdominal exam: Soft, nontender, with no palpable masses. No hepatosplenomegaly. No palpable hernias. Rectal exam: exam deferred Extremities: no clubbing, cyanosis or edema. No adenopathy. Other: LABORATORY VALUES: As Noted RADIOLOGIC STUDIES: As Noted Assessment IMPRESSION: Colon cancer screening Wahl's esophagus determined by endoscopy PLAN: I plan to perform upper endoscopy. We discussed the risks and benefits of the planned endoscopy. I have informed the patient that complications can occur including failure to complete the endoscopy and perforation. The patient had the opportunity to ask questions concerning the planned endoscopy. My staff has also explained the procedure to the patient in understandable terms and has given the patient printed material concerning the procedure. The patient freely consents to surgery. Diagnoses: (Z12.11) Colon cancer screening (K22.70) Wahl's esophagus determined by endoscopy My findings have been communicated to Dr. Magalys Larson MD via shared medical record. This note will be forwarded to Dr. Magalys Larson MD. Return to Clinic: The patient is instructed to follow-up with me 1 week post (more content not included)... Normal [facility] Initial Visit (Orthopaedic S urgery)on 05-15-2020 Initial Visit (Orthopaedic Surgery) Diagnoses/Problems Assessed Thumb laceration (883.0) (S61.019A) Provider Impressions Right thumb last duration without evidence of tendon/nerve involvement Patient will continue to gradually mobilize on his own. He will continue to keep laceration covered when doing yard work and other hand intensive activities for the next week. After that he will begin scar tissue massage. I will see him back if any continued issues or concerns. Warning signs/symptoms of infection reviewed and he will report to emergency room if any issues. Chief Complaint RIGHT THUMB INJURY History of Present Illness 69-year-old male appears for evaluation of right thumb laceration that occurred approximately 1 week ago. He was tightening his lawnmower blades when his hand slipped causing a laceration to his right thumb. Immediate pain and bleeding. Bleeding was controlled by gentle pressure. Wound was irrigated and reapproximated in the emergency room and he was started on prophylactic antibiotics. Tetanus up-to-date. He does report some aching pain currently that is worse with extremes of motion. No numbness or tingling. Review of Systems Patients' self reported past medical history, medications, allergies, surgical history, family and social history as well as a 12 point review of systems has been documented in the new patient intake form from today and scanned into the patient's electronic medical record. Pertinent findings are documented in the HPI. ROS: All other systems have been reviewed and are negative for complaint except as noted on the intake form Active Problems Problems Thumb laceration (883.0) (S61.019A) Physical Exam Constitutional: Appears well-developed and well-nourished. Head: Normocephalic and atraumatic. Eyes: EOMI grossly Cardiovascular: Intact distal pulses. Respiratory: Effort normal. No respiratory distress. Neurologic: Alert and oriented to person, place, and time. Skin: Skin is warm and dry. Hematologic / Lymphatic: No lymphedema, lymphangitis. Psychiatric: normal mood and affect. Behavior is normal. Musculoskeletal: Right thumb: Laceration near base of thumb is well approximated and well-healing. Multiple sutures have untied and are removed. Wound remains well approximated. No signs of infection. EPL/FPL and thumb abduction intact. Sensation intact radially/ulnarly/dorsally. Capillary refill less than 2 seconds distally. Able to fully flex and extend thumb. Results/Data Xray Thumb 2 [id number] 12:00Kosta Fraga [May 15, 2020 5:24AM Kosta Fang] Reason: Unspecified for Xray Thumb 2 Views Test NameResultFlagReference Xray Thumb 2 Views Please click on the link to view the study images Right thumb radial graphs ordered and available for review: No fracture/dislocation. Underlying degenerative changes noted. Signatures Electronically signed by : Kosta Fang MD; May 15 2020 7:42PM EST (Author) Normal [facility] Provider Note - ED v2on 04-18 Provider Note - ED v2 Provider Note - ED v2: Chart Review: ED NOTES ED NOTES: 69-year-old male presents today with laceration to the proximal posterior aspect of his left thumb. It occurred at 3:45 PM today. He was trying to fix a lawnmower and when he pushed the blade he/the posterior aspect of his thumb. He denies paresthesia. He denies limited range of motion. He thoroughly irrigated the wound before coming to the ER but when he was unable to stop the bleeding he the emergency department. He cannot remember if his tetanus shot was administered within the last 10 years. He denies any allergies to antibiotics. He denies any history of smoking and only drinks socially. He has no other complaints or concerns and he is not on any anticoagulant medication. He describes himself as a perfectly healthy 69-year-old male HISTORY OF PRESENTING ILLNESS SUNDEEP is a 69 year old Male and was seen by me at 08-May-2020 16:38 for a chief complaint of finger pain/injury . The historian is the patient. Triage Information: Most recent Vital Sign Value Date Temp (F): 97.7 05-08-2020 16:40 Temp (C): 36.5 05-08-2020 16:40 Heart Rate (beats/min): 58 05-08-2020 16:40 Respirations (breaths/min): 18 05-08-2020 16:40 SpO2 (%): 96 05-08-2020 16:40 BP Systolic (mm Hg): 134 05-08-2020 16:40 BP Diastolic (mm Hg): 94 05-08-2020 16:40 PAST MEDICAL HISTORY ATTESTATION: I have reviewed and confirmed nurse's/medic's notes for patient's medications, allergies, and medical, surgical, family and social history PSYCHOSOCIAL SCREENING: NO: concerns for safety at home, feelings of depression, feels like hurting others and feels like hurting self CURRENT OR FORMER SUBSTANCE USE: YES: Alcohol NO: Cigarette/Tobacco, e-Cigarette/Vaping and Street Drugs ALLERGIES/INTOLERANCES: No Known Allergies HEALTH HISTORY: No documented data. OUTPATIENT MEDICATIONS: Home Medications Review Status for Reconciliation: Not Done Med Status: Patient Currently Takes Medications Drug Name: Keflex 500 mg oral capsule Instructions: 1 cap(s) orally 3 times a day Drug Name: mupirocin 2% topical ointment Instructions: Apply topically to affected area 2 times a day SIGNIFICANT EVENTS: Immunizations Description:Tdap REVIEW OF SYSTEMS CONSTITUTIONAL: Negative for: chills, fever and weakness ENMT Nose: Negative for: congestion, discharge, nose bleeds, obstruction and sneezing Throat/Neck: Negative for: hoarseness, throat pain and neck pain CARDIOVASCULAR: Negative for: bradycardia, chest pain, diaphoresis, edema, irregular rhythm, orthopnea, palpitations and tachycardia RESPIRATORY: Negative for: cough, dyspnea, hemoptysis, pleuritic chest pain and wheezing GASTROINTESTINAL: Negative for: abdominal pain, constipation, diarrhea, nausea and vomiting; change in bowel habits, hematochezia, melena, rectal pain and stool incontinence GENITOURINARY: Negative for: cloudy urine, dysuria, frequency, hematuria, strong smelling urine and urgency; urine output decreased and urine output increased MUSCULOSKELETAL: Negative for: back pain, joint pain, neck pain, pain, sensory deficits, stiffness and weakness INTEGUMENTARY: ( laceration of proximal aspect of left thumb approximately 4 cm x 1 cm x 0.5 cm) Negative for: rash NEUROLOGICAL: Negative for: altered mental status, dizziness, gait abnormality, headache, loss of consciousness, loss of function and low extremity numbness; memory impairment, neck stiffness, sensory deficits, upper extremity numbness and vertigo PSYCHIATRIC: Negative for: anxiety and depression ENDOCRINE: Negative for: diabetes HEME/LYMPH: Negative for: anemia, easy bleeding and easy bruising ALLERGIC/IMMUNOLOGIC: Negative for: rash RESULTS/VITAL SIGNS VITAL SIGNS: T PRBP SpO2O2(LPM) %FiO2 Method 08-May-2020 16:40:[id number] 96 room air, no respiratory support PHYSICAL EXAM CONSTITUTIONAL: Well appearing, well nourished, awake, alert, oriented to person, place, time/situation and in no apparent distress. HENMT: Airway patent, ears with clear tympanic membranes bilaterally. Nasal mucosa clear. Mouth with normal mucosa. Throat has no vesicles, no oropharyngeal exudates and uvula is midline. Face with no lymph node enlargement. CARDIOVASCULAR: Normal rate, regular rhythm. Heart sounds S1, S2. No murmurs, rubs or gallops. PMI non-displaced. RESPIRATORY: Breath sounds clear and equal bilaterally. GASTROINTESTINAL: Abdomen soft, non-distended, no rebound, no guarding. Bowel sounds normal in all 4 quadrants. MUSCULOSKELETAL: Spine appears normal, range of motion is not limited, no muscle or joint tenderness. NEUROLOGICAL: Alert and oriented, no focal deficits, no motor or sensory deficits. SKIN: laceration of proximal aspect of left thumb approximately 4 cm x 1 cm x 0.5 cm PSYCHIATRIC: Alert and oriented to person, place, time/situation. normal mood and affect. No apparent risk to self or others. HEME/LYMPH: No adenopathy or splenomegaly. No cervical, supraclavicular or inguinal lymphadenopathy. MEDICAL DECISION MAKING/ED COURSE MDM/ED COURSE: Wound was thoroughly irrigated with Hibiclens and normal saline. Each finger was isolated with full range of motion and feeling. After wound was thoroughly irrigated and cleaned and repaired with 5 sutures. Please see procedure note. He was referred to Dr. Maikel Fang for outpatient follow-up. He received his tetanus booster. He was placed on Keflex for 5 days 3 times daily for infection prophylaxis and he will use mupirocin ointment for infection prophylaxis. PROCEDURE LACERATION REPAIR Procedure performed by: ok Conversion Man(s): none Findings: (laceration of proximal aspect of left thumb approximately 4 cm x 1 cm x 0.5 cm) Specimen: no Estimated Blood Loss (mL): (5cc) Post-Procedure Diagnosis: laceration repair to the laceration of proximal aspect of left thumb approximately 4 cm x 1 cm x 0.5 cm The patient presents with a cm long laceration of the 1st digit of the left, finger. The area was draped and prepped per protocol. Local anesthesia was achieved with 1% lidocaine. The wound was irrigated and copiously irrigated, the area was explored in a bloodless field, hibiclens/ns was used to irrigate the wound. There were no foreign bodies seen. There was no injury to the tendon(s). 5 4-0 interrupted nylon sutures in the skin. Complications: There were no complications associated with the procedure CLINICAL IMPRESSION Diagnosis/Annotation: ED Dx Name:Laceration of left thumb Code:S61.012A Disposition: discharged Type: home ATTESTATION CRITICAL CARE TIME Is this a critically ill patient: no Electronic Signatures: Amandeep Thomas ([employer]) (Signed 08-May-2020 18:33) Authored: ED Notes, HPI, PMH, ROS, PE, Results/Vital Signs, MDM/ED Course, Procedure, Clinical Impression, Attestation, Chart Review, Scores Last Updated: 08-May-2020 18:33 by Amandeep Thomas ([employer]) References: 1. Data Referenced From Triage - ED 08-May-2020 16:40 Normal [facility] Risk Screen - Adult Emergenc yon 05-08-2020 Risk Screen - Adult Emergency Preferred Language: Preferred Language: Preferred Language for Discussing Health Care (patient/designee)Lao Advanced Directives: Advance Directive/DNRno Family Violence Adult: Abuse Screen: Are you or have you been threatened or abused physically, emotionally, or sexually by anyoneno Learning Assessment (Patient): Learning Assessment (Patient): Patient is Able to be Assessed for Learningno Reason Unable to Assesspt in ed Learning Assessment (Other Learner): Learning Assessment (Other Learner): Other learner availableno Pressure Injury/TB/Substance: Pressure Injury: Pressure Injury Present on Admissionno Do you have a coughno Substance Use Current or Former Historynever: Cigarette/Tobacco, e-Cigarette/Vaping, Alcohol, Street Drugs Admission Risk Screen: Significant IndicatorsComplete CAGE: CAGE: [place] [place] no Electronic Signatures: Rosalinda Singh (RN) (Signed 08-May-2020 16:42) Authored: Preferred Language, Advanced Directives, Family Violence Adult, Learning Assessment (Patient), Learning Assessment (Other Learner), Pressure Injury/TB/Substance, Pressure Injury, CAGE Last Updated: 08-May-2020 16:42 by Rosalinda Singh (ZAIRA) Normal [facility] Triage - EDon 05-08-2020 Triage - ED Chart Review: ARRIVAL INFORMATION Means of Arrival: Ambulatory Mode of Arrival: private vehicle Arrival From: home Accompanied By: self CHIEF COMPLAINT SUNDEEP LOPEZ is a Male patient with a chief complaint of finger pain/injury. Triage Date/Time: 08-May-2020 16:40 Pain Rating (0-10): 2 = Mild Vital Signs: Temperature: 97.7F ( 36.5C) taken temporal Blood Pressure: 134/94 Mean: Heart Rate: 58 Respiratory Rate: 18 Pulse Oximetry: 96% on room air, no respiratory support. Height: 5 feet 8 inches. 172.7 CM Weight: 155.4 pounds. Calculated 70.5 kg. (stated) Calculated BMI (kg/m2): 23.637 Calculated BSA (m2) 1.84 [place] Coma Scale: Best Eye Response: (E4) spontaneous Best Motor Response: (M6) obeys commands Best Verbal Response: (V5) oriented Catalina Score: 15 Allergies: no Patient has homicidal thoughts: no BRITTNY: 4 Risk Screens Suicide Risk Screen In the Past Month: Have you wished you were or wished you could go to sleep and not wake up no In the Past Month: Have you had any actual thoughts of killing yourself no In Your Lifetime: Have you ever done anything, started to do anything, or prepared to do anything to end your life no Bonilla Fall Scale Screening Has the patient fallen before (or is the patient in the ED as a result of a fall) has not had a fall Does the patient have an impaired gait does not have impaired gait Is the patient cognitively impaired not cognitively impaired Interventions: Bonilla Fall Interventions: LOW INTERVENTIONS: *patient oriented to surroundings and call system, * patient/family falls education completed and documented, *patients fall status communicated during bedside handoff, *whiteboard updated, *mode of toileting discussed with patient, *bed in low position with brakes locked, *call light in reach, * non-skid footwear TRAVEL HISTORY Travel History Coronavirus Screening: no exposure or symptoms Travel Exposure History: NO travel to International locations in the past 30 days PAIN Pain Scale Used: MESHA Pain Rating (0-10): 2 = Mild Past Medical History: Past Medical History Reviewedno Electronic Signatures: Rosalinda Singh (RN) (Signed 08-May-2020 16:41) Authored: Quick Triage, Risk Screens, Pain, Arrival, Travel History, Chart Review, Scores, Past Medical History Last Updated: 08-May-2020 16:41 by Rosalinda Singh (RN) Normal [facility] Gram stain for investigation of transfusion reaction Microscopic observation Gram stain Nom (Unsp spec) [facility] Work Phone: No Panel Information Nasopharyngeal Culture Streptococcus pneumoniae [facility] Work Phone: Nasopharyngeal Culture Klebsiella aerogenes [facility] Work Phone: Vital Signs Date Time Vital Sign Value Performing Clinician Facility 09-07-2024 13:48-0400 Body temperature 98.8 [degF] Dr. Magalys Larson MD Work Phone: [facility] 09-07-2024 13:48-0400 Diastolic blood pressure 74 mm[Hg] Dr. Magalys Larson MD Work Phone: [facility] 09-07-2024 13:48-0400 Heart rate 61 /min Dr. Magalys Larson MD Work Phone: [facility] 09-07-2024 13:48-0400 Respiratory rate 18 /min Dr. Magalys Larson MD Work Phone: [facility] 09-07-2024 13:48-0400 SaO2% (BldA) [Mass fraction] 100 % Dr. Magalys Larson MD Work Phone: [facility] 09-07-2024 13:48-0400 Systolic blood pressure 142 mm[Hg] Dr. Magalys Larson MD Work Phone: [facility] 09-07-2024 12:14-0400 Body height 167.[address] Magalys Larson MD Work Phone: [facility] 09-07-2024 12:14-0400 Body mass index (BMI) [Ratio] 27.2 kg/m2 Dr. Magalys Larson MD Work Phone: [facility] 09-07-2024 12:14-0400 Body weight 76.[address] Magalys Larson MD Work Phone: [facility] 02-24-2024 08:46-0500 Body height 170.2 cm Latoya Jayme [employer] Work Phone: [facility] 02-24-2024 08:46-0500 Body mass index (BMI) [Ratio] 25.34 kg/m2 Latoya Jayme [employer] Work Phone: [facility] 02-24-2024 08:46-0500 Body weight 73.39 kg Latoya Jayme [employer] Work Phone: [facility] 02-24-2024 08:46-0500 Diastolic blood pressure 85 mm[Hg] Latoya Jayme [employer] Work Phone: [facility] 02-24-2024 08:46-0500 Heart rate 70 /min Latoya Jayme [employer] Work Phone: [facility] 02-24-2024 08:46-0500 SaO2% (BldA) [Mass fraction] 97 % Latoya Jayme [employer] Work Phone: [facility] 02-24-2024 08:46-0500 Systolic blood pressure 137 mm[Hg] Latoya Jayme [employer] Work Phone: [facility] 02-23-2024 08:57-0500 Body height 167.[address] Magayls Larson MD Work Phone: [facility] 02-23-2024 08:57-0500 Body mass index (BMI) [Ratio] 24.5 kg/m2 Dr. Magalys Larson MD Work Phone: [facility] 02-23-2024 08:57-0500 Body weight 68.[address] Magalys Larson MD Work Phone: [facility] 10-21-2023 13:27-0400 Body height 169 cm Magalys Larson MD Work Phone: [facility] 10-21-2023 13:27-0400 Body mass index (BMI) [Ratio] 25.38 kg/m2 Magalys Larson MD Work Phone: [facility] 10-21-2023 13:27-0400 Body temperature 98.71 [degF] Magalys Larson MD Work Phone: [facility] 10-21-2023 13:27-0400 Body weight 72.5 kg Magalys Larson MD Work Phone: [facility] 10-21-2023 13:27-0400 Diastolic blood pressure 80 mm[Hg] Magalys Larson MD Work Phone: [facility] 10-21-2023 13:27-0400 Heart rate 56 /min Magalys Larson MD Work Phone: [facility] 10-21-2023 13:27-0400 Respiratory rate 16 /min Magalys Larson MD Work Phone: [facility] 10-21-2023 13:27-0400 SaO2% (BldA) [Mass fraction] 98 % Magalys Larson MD Work Phone: [facility] 10-21-2023 13:27-0400 Systolic blood pressure 122 mm[Hg] Magalys Larson MD Work Phone: [facility] 09-12-2023 12:05-0400 Respiratory rate 16 /min Alexandr Farris MD Work Phone: [facility] 09-12-2023 12:00-0400 Diastolic blood pressure 90 mm[Hg] Alexandr Farris MD Work Phone: [facility] 09-12-2023 12:00-0400 Heart rate 59 /min Alexandr Farris MD Work Phone: [facility] 09-12-2023 12:00-0400 SaO2% (BldA) [Mass fraction] 98 % Alexandr Farris MD Work Phone: [facility] 09-12-2023 12:00-0400 Systolic blood pressure 122 mm[Hg] Alexandr Farris MD Work Phone: [facility] 09-12-2023 11:12-0400 Body mass index (BMI) [Ratio] 27.5 kg/m2 Alexandr Farris MD Work Phone: [facility] 09-12-2023 11:12-0400 Body temperature 96.91 [degF] Alexandr Farris MD Work Phone: [facility] 09-12-2023 11:12-0400 Body weight 71.2 kg Alexandr Farris MD Work Phone: [facility] 08-19-2023 10:44-0400 Body height 160.9 cm Alexandr Farris MD Work Phone: [facility] 08-19-2023 10:44-0400 Body mass index (BMI) [Ratio] 27.5 kg/m2 Alexandr Farris MD Work Phone: [facility] 08-19-2023 10:44-0400 Body weight 71.22 kg Alexandr Farris MD Work Phone: [facility] 08-19-2023 10:44-0400 Diastolic blood pressure 85 mm[Hg] Alexandr Farris MD Work Phone: [facility] 08-19-2023 10:44-0400 Heart rate 54 /min Alexandr Farris MD Work Phone: [facility] 08-19-2023 10:44-0400 SaO2% (BldA) [Mass fraction] 97 % Alexandr Farris MD Work Phone: [facility] 08-19-2023 10:44-0400 Systolic blood pressure 134 mm[Hg] Alexandr Farris MD Work Phone: [facility] 10-15-2022 09:57-0400 Diastolic blood pressure 68 mm[Hg] Magalys Larson MD Work Phone: [facility] 10-15-2022 09:57-0400 Systolic blood pressure 108 mm[Hg] Magalys Larson MD Work Phone: [facility] 10-15-2022 09:00-0400 Body height 166 cm Magalys Larson MD Work Phone: [facility] 10-15-2022 09:00-0400 Body temperature 98.6 [degF] Magalys Larson MD Work Phone: [facility] 10-15-2022 09:00-0400 Body weight 67.09 kg Magalys Larson MD Work Phone: [facility] 10-15-2022 09:00-0400 Heart rate 73 /min Magalys Larson MD Work Phone: [facility] 10-15-2022 09:00-0400 Respiratory rate 18 /min Magalys Larson MD Work Phone: [facility] 10-15-2022 09:00-0400 SaO2% (BldA) [Mass fraction] 98 % Magalys Larson MD Work Phone: [facility] 10-02-2021 09:44-0400 Diastolic blood pressure 72 mm[Hg] Magalys Larson MD Work Phone: [facility] 10-02-2021 09:44-0400 Systolic blood pressure 122 mm[Hg] Magalys Larson MD Work Phone: [facility] 10-02-2021 08:52-0400 Body height 167.6 cm Magalys Larson MD Work Phone: [facility] 10-02-2021 08:52-0400 Body weight 68.49 kg Magalys Larson MD Work Phone: [facility] 10-02-2021 08:52-0400 Heart rate 63 /min Magalys Larson MD Work Phone: [facility] 10-02-2021 08:52-0400 SaO2% (BldA) [Mass fraction] 97 % Magalys Larson MD Work Phone: [facility] 05-15-2020 13:49-0400 Body mass index (BMI) [Ratio] [facility] Encounters Encounter Date Encounter Type Care Provider Facility Start: 09-07-2024 End: 09-07-2024 Emergency department patient visit Dr. Magalys Larson MD Work Phone: -Emergency Department Work Phone: Start: 06-01-2024 End: 06-01-[address] Magalys Larson MD Work Phone: [facility] Work Phone: Start: 06-01-2024 End: 06-01-[address] Anthony Smith MD -Radiology, [place] Work Phone: Start: 06-01-2024 End: 06-01-2024 ambulatory Anthony Smith Facility:[facility] Start: 04-15-2024 End: 04-15-2024 ambulatory LATOYA AL Facility:[facility] Start: 03-11-2024 ambulatory Jose Saleem Facility: [facility] Start: 02-24-2024 End: 05-12-2024 Telephone encounter Latoya Al INSURANCE BILLER.GRAPPLE CREW LEADER Work Phone: General Surgery Start: 02-24-2024 End: 02-24-2024 ambulatory LATOYA AL Facility:[facility] Start: 02-24-2024 End: 02-24-2024 Patient encounter procedure Latoya Al INSURANCE BILLER.GRAPPLE CREW LEADER Work Phone: General Surgery Comment on above: History of colonic p olyps (Primary Dx); Family history of colon cancer in father; Screen for colon cancer Start: 02-23-2024 Non-patient / Non-visit Dr. Yary Larson MD Work Phone: [facility] Work Phone: Start: 02-23-2024 ambulatory Renetta Ransom Facility:[facility] Start: 10-21-2023 End: 10-21-2023 ambulatory MAGALYS LARSON Facility:[facility] Start: 10-21-2023 End: 10-21-2023 ambulatory MAGALYS LARSON Facility:[facility] Start: 10-21-2023 End: 10-21-2023 Office outpatient visit 25 minutes Magalys Larson MD Work Phone: [facility] [place] Comment on above: Wahl's esophagus determined by endoscopy (Primary Dx); TMJ syndrome; EMERALD on CPAP; Stiffness of left hip joint; Bilateral hearing loss, unspecified hearing loss type; Balance disorder; Encounter for long-term current use of medication; Screening for depression; Encounter for screening examination for other mental health and behavioral disorders; Encounter for immunization Start: 09-19-2023 End: 09-19-2023 ambulatory LATOYA AL Facility:[facility] Start: 09-19-2023 End: 09-19-2023 Patient encounter procedure Latoyayehuda Al APRN.CNP Work Phone: General Surgery Comment on above: Wahl's esophagus determined by endoscopy (Primary Dx) Start: 09-12-2023 End: 09-12-2023 ambulatory MAGALYS LARSON Facility:[facility] Start: 09-12-2023 End: 09-12-2023 Subsequent hospital visit by physician Alexandr Farris MD Work Phone: Ambulatory Surgery Comment on above: Wahl's esophagus determined by endoscopy [K22.70] Start: 08-19-2023 End: 08-19-2023 ambulatory MAGALYS LARSON Facility:[facility] Start: 08-19-2023 End: 08-19-2023 Patient encounter procedure Alexandr Farris MD Work Phone: General Surgery Comment on above: Colon cancer screeni ng; Wahl's esophagus determined by endoscopy Start: 12-25-2022 End: 12-25-2022 Nursing evaluation of patient and report Mi Nurse Work Phone: [facility] [place] Comment on above: Need for influenza v accination (Primary Dx) Start: 10-15-2022 End: 10-15-2022 Office outpatient visit 40 minutes Magalys Larson MD Work Phone: [facility] [place] Comment on above: Wahl's esophagus determined by endoscopy (Primary Dx); Anxiety; EMERALD on CPAP; Midline low back pain without sciatica, unspecified chronicity; Colon cancer screening; Prostate cancer screening; Encounter for screening for diabetes mellitus Start: 01-05-2022 End: 01-05-2022 ambulatory [facility] Work Phone: Start: 01-05-2022 End: 01-05-2022 Patient encounter procedure [facility]-Laboratory, Specimen Start: 10-02-2021 End: 10-02-2021 Office outpatient visit 40 minutes Magalys Larson MD Work Phone: [facility] [place] Comment on above: Wahl's esophagus determined by endoscopy (Primary Dx); 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 Yary Larson MD Work Phone: Start: 06-01-2024 X-ray of chest, PA and lateral views Dr. Magalys Larson MD Work Phone: Start: 10-21-2023 Adult depression screening assessment Magalys Larson MD Work Phone: Start: 09-12-2023 Esophagogastroduodenoscopy transoral diagnostic Alexandr Farris MD Work Phone: Start: 02-18-2023 Colonoscopy Alexandr Farris MD Work Phone: Start: 12-25-2022 INFLUENZA VACCINE, PRSV FREE, AGE 65+ YR, HIGH DOSE, QUADRIVALENT (FLUZONE HIGH-DOSE) Magalys Larson MD Work Phone: Start: 03-13-2020 Lipid 1996 panel - Serum or Plasma Magalys Larson MD Work Phone: Start: 03-04-2017 Colonoscopy Magalys Larson MD Work Phone: Investigation of tra nsfusion reaction Nasopharyngeal Culture Plan of Treatment Date Care Activity Detail Author Start: 06-05-2031 Urine microalbumin profile [facility] Start: 12-19-2026 RSV Vaccine (1 - 1-d ose 75+ series) RSV Vaccine (1 - 1-dose 75+ series) [facility] Start: 10-20-2026 Diabetes Screening Diabetes Screenin g [facility] Start: 03-13-2025 Lipid 1996 panel - S sofia or Plasma Lipid Screening [facility] Start: 03-13-2025 Lipid panel Lipid Screening [facility] Start: 03-13-2025 LIPID SCREEN LIPID SCREEN [facility] Start: 11-02-2024 End: 11-02-2024 Patient encounter procedure 11/02/2024 1:20 PM EDT Office Visit [facility] [address] [place], [place] [id number] Magalys Larson MD [address] [place], [place] [id number] Yearly [facility] [place] Comment on above: Yearly Start: 10-20-2024 Anxiety Screening Anxiety Screening [facility] Start: 10-20-2024 Depression Screening Depression Scre ening [facility] Start: 09-07-2024 [facility] Start: 04-15-2024 End: 04-15-2024 Patient encounter procedure 04/15/2024 12:00 PM EST Appointment LD SURGERY [address] [facility] [address] Padmini Villegas MD [address] [place] [id number] colonoscopy LD SURGERY Comment on above: colonoscopy Start: 02-19-2024 Screening for malign ant neoplasm of colon [facility] Start: 02-18-2024 Advance Directive Discussion Advance Directive Discussion [facility] Start: 11-04-2023 Covid-19 Vaccine () Covid-19 Vaccine () [facility] Start: 10-21-2023 End: 10-21-2023 Patient encounter procedure 10/21/2023 1:20 PM EDT Office Visit [facility] [place] [address] [facility], [place] [address] Magalys Larson MD [address] [place], [place] [id number] yearly [facility] Comment on above: yearly Start: 10-19-2023 Covid-19 Vaccine () Covid-19 Vaccine () [facility] Start: 10-19-2023 Influenza vaccination Influenza Vacc ine (#1) [facility] Start: 10-16-2023 Shingrix Vaccine (1 of 2) Shingrix Vaccine (1 of 2) [facility] Comment on above: Postponed from 12/19 (Declined at this time) Start: 09-19-2023 End: 09-19-2023 Patient encounter procedure 09/19/2023 1:00 PM EDT Office Visit General Surgery [address] [place], [place] [id number] Latoya Al APRN.GRAPPLE CREW LEADER [address] [place], [place] [id number] 09-11 EGD follow up General Surgery Comment on above: 09-11 EGD follow up Start: 09-12-2023 End: 09-12-2023 Patient encounter procedure 09/12/2023 12:30 PM EDT Appointment Ambulatory Surgery [address] [place], [place] [phone] Alexandr Farris MD [address] [place], [place] [id number] Ambulatory Surgery Start: 03-13-2023 DIABETES SCREEN DIABETES SCREEN [facility] Start: 01-25-2024 Diabetes Screening Diabetes Screenin g [facility] Start: 02-17-2023 Advance Directive Discussion Advance Directive Discussion [facility] Start: 10-18-2022 Covid-19 Vaccine () Covid-19 Vaccine () [facility] Start: 10-18-2022 Influenza vaccination Influenza Vacc ine (#1) [facility] Start: 10-15-2022 End: 12-15-2022 CBC panel - Blood by Automated count CBC Lab Routine Wahl's esophagus determined by endoscopy Anxiety Midline low back pain without sciatica, unspecified chronicity Expected: 10/15/2022, Expires: 12/15/2022 [facility] Work Phone: Comment on above: Expected: 10/15/2022 , Expires: 12/15/2022 Start: 10-15-2022 End: 12-15-2022 Comprehensive metabolic 2000 panel - Serum or Plasma COMP METABOLIC PANEL Lab Routine Wahl's esophagus determined by endoscopy Anxiety Encounter for screening for diabetes mellitus Midline low back pain without sciatica, unspecified chronicity Expected: 10/15/2022, Expires: 12/15/2022 [facility] Work Phone: Comment on above: Expected: 10/15/2022 , Expires: 12/15/2022 Start: 10-15-2022 End: 12-15-2022 PSA/PROSTSPECAG SCRN PSA/PROSTSPECAG SCRN Lab Routine Prostate cancer screening Expected: 10/15/2022, Expires: 12/15/2022 [facility] Work Phone: Comment on above: Expected: 10/15/2022 , Expires: 12/15/2022 Start: 10-15-2022 End: 12-15-2022 Thyrotropin [Units/volume] in Serum or Plasma TSH BLD Lab Routine Wahl's esophagus determined by endoscopy Anxiety Midline low back pain without sciatica, unspecified chronicity Expected: 10/15/2022, Expires: 12/15/2022 [facility] Work Phone: Comment on above: Expected: 10/15/2022 , Expires: 12/15/2022 Start: 10-15-2022 End: 12-15-2022 Thyroxine (T4) free [Mass/volume] in Serum or Plasma T4 FREE/FREE THYROX Lab Routine Wahl's esophagus determined by endoscopy Anxiety Midline low back pain without sciatica, unspecified chronicity Expected: 10/15/2022, Expires: 12/15/2022 [facility] Work Phone: Comment on above: Expected: 10/15/2022 , Expires: 12/15/2022 Start: 10-02-2022 SHINGRIX VACCINE (1 of 2) SHINGRIX VACCINE (1 of 2) [facility] Comment on above: Postponed from 12/19 (Declined at this time) Start: 04-05-2022 Covid-19 Vaccine (5 - Moderna series) Covid-19 Vaccine (5 - Moderna series) [facility] Start: 03-04-2022 Colonoscopy COLONOSCOPY [facility] Start: 03-04-2022 COLORECTAL CANCER SCREENING COLORECTAL CANCER SCREENING [facility] Start: 10-18-2021 Influenza vaccination INFLUENZA (#1) [facility] Start: 03-17-2021 COVID-19 VACCINE (4 - Booster for Moderna series) COVID-19 VACCINE (4 - Booster for Moderna series) [facility] Start: 02-17-2021 DEPRESSION ASSESSMENT DEPRESSION ASS ESSMENT [facility] Start: 2011 RSV Vaccine (1 - 1-d ose 60+ series) RSV Vaccine (1 - 1-dose 60+ series) [facility] Start: 12-19-1996 COLOGUARD (FIT-DNA) COLOGUARD (FIT-D NA) [facility] Start: 12-19-[address] COLONOGRAPHY [facility] Start: 12-19-1996 FECAL OCCULT BLOOD FECAL OCCULT BLOO D [facility] Start: 12-19-1996 Screening for malign ant neoplasm of colon [facility] Start: 12-19-1996 SIGMOIDOSCOPY SIGMOIDOSCOPY [facility] Start: 12-19-1969 Anxiety Screening Anxiety Screening [facility] Start: 12-19-1969 Depression Screening Depression Scre ening [facility] Colonoscopy [facility] End: 08-18-2024 EGD DIAGNOSTIC EGD DIAGNOSTIC Endoscopy Routine Wahl's esophagus determined by endoscopy 1 Occurrences starting 08/19/2023 until 08/18/2024 [facility] Work Phone: Comment on above: 1 Occurrences starti ng 08/19/2023 until 08/18/2024 Patient Education ED Knee Effusi on ED Muscle Strain, Extremity [facility] Work Phone: End: 02-23-2025 Screening colonoscopy COLONOSCOPY SCREENING Endoscopy Routine History of colonic polyps Family history of colon cancer in father Screen for colon cancer 1 Occurrences starting 02/24/2024 until 02/23/2025 [facility] Work Phone: Comment on above: 1 Occurrences starti ng 02/24/2024 until 02/23/2025 SURGICAL PATHOLOGY [facility] Work Phone: Comment on above: Release Upon Orderin g for 1 Occurrences starting 09/12/2023, 1 completed [facility] Immunizations Immunization Date Immunization Notes Care Provider [facility] 10-21-2023 influenza, high dose seasonal, preservative-free Magalys Larson MD Work Phone: [facility] 07-04-2023 zoster vaccine recombinant Magalys Larson MD Work Phone: [facility] 01-21-2023 zoster vaccine recombinant Magalys Larson MD Work Phone: [facility] 12-25-2022 influenza (HD-IIV4) vaccine, age 65+ yr, high dose, quadrivalent, PF (FLUZONE HIGH-DOSE) Mi Nurse Work Phone: [facility] Work Phone: 12-25-2022 influenza virus vaccine, unspecified formulation Alexandr Farris MD Work Phone: [facility] 10-02-2021 pneumococcal (PCV20) vaccine, 20 valent (PREVNAR 20) Magalys Larson MD Work Phone: [facility] 10-02-2021 pneumococcal Conjuga te, unspecified formulation Magalys Larson MD Work Phone: [facility] Work Phone: 06-04-2021 tetanus toxoid, redu alexandrea diphtheria toxoid, and acellular pertussis vaccine, adsorbed Magalys Larson MD Work Phone: [facility] 03-07-2020 influenza, high-dose , quadrivalent vaccine (FLUZONE HIGH DOSE QUADRIVALENT) Magalys Larson MD Work Phone: [facility] 03-07-2020 influenza virus vaccine, unspecified formulation Magalys Larson MD Work Phone: [facility] 11-03-2018 influenza, high dose seasonal, preservative-free Magalys Larson MD Work Phone: [facility] 03-19-2018 pneumococcal conjuga te vaccine, 13 valent Magalys Larson MD Work Phone: [facility] 01-15-2012 influenza virus vaccine, unspecified formulation Magalys Larson MD Work Phone: [facility] Work Phone: 01-15-2012 tetanus toxoid, redu alexandrea diphtheria toxoid, and acellular pertussis vaccine, adsorbed Magalys Larson MD Work Phone: [facility] Work Phone: Payers Date Payer Category Payer Self-pay [id number] 2020 Private Health Insurance MMO MED ICARE SUPPLEMENT [id number] 2020 Unknown 2020 Unknown [id number] Medicare [id number] 2016 Medicare [id number] 2011 Unknown DO NOT USE NG S [facility] [id number] Unknown [id number] Unknown [id number] Unknown [id number] Social History Date Type Detail Facility Start: 10-02-2021 End: 09-07-2024 Tobacco smoking status NHIS Never smoked tobacco [facility] Start: 10-02-2021 Tobacco use and exposure Smokeless tobacco non-user [facility] Start: 10-02-2021 End: 02-24-2024 Alcohol intake Current drinker of alcohol (finding) [facility] Start: 10-02-2021 End: 10-15-2022 Alcohol intake [facility] Work Phone: Start: 01-27-2012 Alcohol Comment moderate [facility] Start: 1950 Sex Assigned At Not on file [facility] Start: 09-22-2021 End: 10-02-2021 Exposure to SARS-CoV-2 (event) Not sure [facility] Start: 08-10-2020 Tobacco smoking stat us MIIS Unknown if ever smoked [facility] Work Phone: Start: 1950 Sex Assigned At Male [facility] Start: 10-15-2022 End: 10-21-2023 Tobacco use panel [facility] Work Phone: Adult Depression Screening Assessment 0 [facility] Work Phone: Start: 06-03-2024 Sex Male (finding) [facility] Medical Equipment Procedure Code Equipment Code Equipment Origin al Text Equipment Identifier Dates Colonoscopy Ligation clip, metallic [id number] FDA Start: 02-18-2023 Colonoscopy Ligation clip, metallic [id number] FDA Start: 02-18-2023 Functional Status Date Assessment Result Facility 08-24-2014 Are you deaf, or do you have serious difficulty hearing No 08/24/2014 10:19 AM Rocco Kennedy [facility] 08-24-2014 Are you blind, or do you have serious difficulty seeing, even when wearing glasses No 08/24/2014 10:19 AM Rocco Kennedy [facility] 08-24-2014 Do you have serious difficulty walking or climbing stairs No 08/24/2014 10:19 AM Rocco Kennedy [facility] 08-24-2014 Do you have difficul ty dressing or bathing No 08/24/2014 10:19 AM Rocco Kennedy [facility] 08-24-2014 Because of a physica l, mental, or emotional condition, do you have difficulty doing errands alone such as visiting a physician's office or shopping No 08/24/2014 10:19 AM Rocco Kennedy [facility] Mental Status Date Assessment Result Facility 08-24-2014 Because of a physica l, mental, or emotional condition, do you have serious difficulty concentrating, remembering, or making decisions No 08/24/2014 10:19 AM Rocco Kennedy [facility] Clinical Notes 01-27-2012 to 09-07-2024 Telephone Encounter - Mitch Kumar - 02/24/2024 9:52 AM ESTTelephone Encounter - Mitch Kumar - 02/24/2024 9:52 AM ESTPatient Latoya Quach APRN.GRAPPLE CREW LEADER - 02/24/2024 8:30 AM EST Note Date & Type Note Facility 09-07-2024 Discharge summary [facility] 09-07-2024 Radiology Diagnostic study note [facility] [address] [place], [place] [phone] Knee 4 or More Views MR#: [id number] Acct: [id number] Name: SUNDEEP LOPEZ Rep #: [id number] : 1950 M 73 From: Chi Gamble MD PCP: Dr. Magalys Larson MD Status: CATHY Carter ER Study:Knee 4 or More Views Date of Exam: 09/07/24 Exam# [id number] Ordering Dr: Jose Rivera MD PROCEDURE: KNEE 4 OR MORE VIEWS 09/07/2024 REASON FOR EXAM: INJURY/PAIN TECHNIQUE: KNEE 4 OR MORE VIEWS COMPARISON: None FINDINGS: There is no fracture or dislocation identified. Joint spaces are maintained. Mineralization is normal. There is no visible soft tissue abnormality or radiopaque foreign body. There is no definite effusion. RAD/Knee 4 or More Views IMPRESSION: No fracture or dislocation is identified. Reading Location: [facility] CC: Dr. Magalys Larson MD; Dr. Tej Rivera MD ~ Costume Cutter: Signed [facility] 09-07-2024 Hospital Discharge instructions Additional Instructions 1. Apply ice to your knee and 6-8 times a day. 2. Recommend not using your stationary or doing anything strenuous for the next 1 to 2 weeks. [facility] Work Phone: 06-02-2024 Radiology Diagnostic study note [facility] [address] [place] [id number] Chest PA and Lateral MR#: [id number] Acct: [id number] Name: SUNDEEP LOPEZ Rep #: [id number] : 1950 M [id number] From: Armond Deshpande MD PCP: Dr. Magalys Larson MD Status: CATHY Carter CLI Study:Chest PA and Lateral Date of Exam: 06/01/24 Exam# [id number] Ordering Dr: Anthony Smith MD PROCEDURE: CHEST PA AND LATERAL 06/01/2024 REASON FOR EXAM: WHEEZING TECHNIQUE: Frontal and lateral views of the chest. COMPARISON: None. FINDINGS: The lungs are emphysematous. Mild bilateral basilar atelectatic pulmonary changes. Calcified atheromatous plaques of the aorta. There is no demonstrated pleural abnormality. Normal heart and pericardium. Normal mediastinum and peter. Normal visualized pulmonary arteries. Normal visualized aortic arch and descending thoracic aorta. Mild diffuse spondylosis of the visualized thoracic spine. Normal visualized ribs, clavicles, and shoulders. There is no demonstrated abnormality of the visualized soft tissue structures ofthe upper abdomen. RAD/Chest PA and Lateral IMPRESSION: Emphysema. Mild bilateral basilar atelectatic pulmonary changes. Reading [facility] CC: Dr. Magalys Larson MD; Dr. Anthony Smith MD ~ Costume Cutter: Signed [facility] 02-24-2024 Telephone encounter Note 04-15-2024 colonoscopy provider went over prep instructions and gave direct number to call Mitch Kumar [facility] 02-24-2024 Miscellaneous Notes 04-15-2024 colonoscopy provider went over prep instructions and gave direct number to call Mitch Kumar documented in this encounter [facility] 02-24-2024 Instructions Latoya Al APRN.GRAPPLE CREW LEADER - 02/24/2024 8:57 AM EST Images from the original note were not included. Miralax/Dulcolax Bowel Prep For this bowel preparation you will need to pick pulling machine operator the following medications at any pharmacy. Four (4) Dulcolax tablets (generic name Bisacodyl) 238 Gram (or 8.3 oz.) Bottle of Miralax (Generic name Polyethylene Glycol) A responsible family member or friend MUST be available to drive you home after your procedure. You are NOT ALLOWED to drive, take a taxi, or leave the Endoscopy Center ALONE. If you do NOT have a responsible clamp truck driver (family member or friend) to take you home, your exam cannot be done with sedation and WILL BE cancelled. Please remove all jewelry if possible. The [facility] or [facility] (depending on where your procedure is scheduled) will call you THE DAY BEFORE YOUR PROCEDURE with your arrival time. The time in My Chart is just an estimate. Please arrive at the time you are told the day before. Medication BLOOD THINNERS - Blood thinner medication may need to be stopped or adjusted before your colonoscopy, such as Coumadin, Plavix, Paradaxa and Eliquis. - Contact prescribing physician regarding holding any blood thinner medication. If you were seen in the general surgery office, please follow their instructions as to if and when to hold any blood thinners. If you are having this procedure done by the request of any other providers and were NOT seen in our office, please contact your physician's office to see if you need to hold any medication prior to your procedure. INSULIN and/or DIABETIC MEDICATION -Please call the doctor that monitors your glucose levels. Your insulin dosage needs to be adjusted due to the diet restrictions required with this bowl preparation (please bring your diabetic medication with you on the day of your procedure). If you are on any of the listed medications below, please follow the instructions as to when to stop your medications. If you have any questions or concerns regarding your diabetic medication, please contact your ordering providers office. Failure to hold the medications below could lead to the cancellation of your procedure. Diabetic Medication Day Prior to Surgery Day of Surgery Communication Oral hypoglycemics (except SGLT2 inhibitors) Continue Hold all on DOS Nurse verifies patient did not take oral medications. Blood glucose checked in preoperative area SGLT2 inhibitors Canagliflozin (Invokana) Dapagliflozin (Farxiga) Empaglifozin (Jardiance) Hold 3 days preoperatively Hold Nurse verifies patient has not taken the medication 3 days preoperatively and has held DOS. Blood glucose check on arrival. SGLT2 inhibitor Ertugliflozin (Steglatro) Hold 4 days preoperatively Hold Nurse verifies patient has not taken the medication 4 days preoperatively and has held DOS. Blood glucose check on arrival. Non-insulin injectables (Except GLP-1 agonists) Take normal dose Hold all Nurse verifies patient has held. Blood glucose check on arrival GLP-1 Agonists (Injected) Semaglutide (Ozempic/Wegovy) Lixisenatide (Adlyxin) Tirzepatide (Mounjaro/Zepbound) Dulaglutide (Trulicity) Hold the week prior to surgery Hold Nurse verifies time of last dose and documents. Assess for symptoms of satiety or nausea. If patient took the week prior to surgery or on DOS, contact the anesthesiologist. GLP-1 Agonists (Daily Injected) Exenatide (Bydureon/ Byetta) Liraglutide (Victoza/Saxenda) Insulin glargine / lixisenatide (Soliqua) Continue Hold on DOS GLP-1 Agonists (oral) Semaglutide (Reybelsus) Continue Hold on DOS Nurse verifies time of last dose and documents. Assess for symptoms of satiety or nausea. If patient took DOS, contact the anesthesiologist. Insulin pump Follow protocol Follow protocol Nurse verifies settings. Blood glucose check on arrival Long- or intermediate-acting insulin (Levemir, Lantus, NPH etc.) Take 75% of normal dose the night before surgery if possible Check fasting AM glucose. If 200 or greater, take half the prescribed dose. If under 200, hold AM dose. Nurse verifies dose and time. Blood glucose check on arrival. If you take GLP-1 agonists such as semaglutide (Ozempic, Wegovy, Rybelsus), dulaglutide (Trulicity), liraglutide (Victoza, Saxenda), exenatide (Byetta, Bydureon), or lixisenatide (Adylyxin), tirzepatide (MOUNJARO). if you take medication once or twice daily, do not take your medication for 1 day prior to your procedure if you take these medications weekly, do not take your medication the week ( hold the prior week's dose) before your procedure If you take aspirin, take it and ALL other medication prescribed by your doctor unless told otherwise by either the physician's office or Pre-Admission testing if having procedure done in a hospital setting ([facility]) with a small sip of water only. You may take over the counter medications if you have a headache. TAKE ALL BLOOD PRESSURE MEDICATION THE MORNING OF THE PROCEDURE. Failure to take usual morning blood pressure meds may result in cancellation of the procedure if hypertensive. Hold erectile dysfunction medications for 48 hrs. prior to the procedure. Five (5) days before your colonoscopy Do not take medications that stop Diarrhea - Imodium, Kaopectate, or Pepto Bismol Do NOT take fiber supplements - Metamucil, Citrucel, FiberCon Do NOT take products that contain iron (check vitamin label) Two (2) to three (3) days before your colonoscopy DO NOT EAT HIGH FIBER FOODS No beans, seeds (flax, sunflower, quinoa), nuts, popcorn, multigrain bread salad/vegetables, or fresh and dried fruit. Do not eat red meat 3 days before your procedure. YOU MAY EAT Lean Chicken breast, fish, eggs, and soup YOU MUST BE ON CLEAR LIQUIDS FOR 2 FULL DAYS PRIOR TO PROCEDURE Two (2) Days before your colonoscopy ONLY DRINK CLEAR LIQUIDS for 2 DAYs BEFORE YOUR COLONOSCOPY. DO NOT EAT ANY SOLID FOODS. Drink at least eight (8) ounces of clear liquids every hour after waking up. Clear fluids include: Water, apple juice, white grape juice, broth (beef, chicken or vegetable), coffee and/or tea (NO DAIRY, MILK OR CREAMER) clear carbonated beverages (sprite, 7-up, sadaf-leticia), Gatorade, or other sport drinks, Darryn-Aid, Jell-O, Gummy Bears and popsicles. NOTHING RED IN COLOR. DO NOT DRINK ALCOHOL the day before or the day of your procedure. DAY 1 (2 days before your colonoscopy) Clear Liquids all day, you may have water, coffee or tea- NO DAIRY, Clear broth (Beef, Chicken or vegetable) Clear carbonated beverages, apple juice, white grape juice , Gatorade, Jell-O, Darryn-Aid, and popsicles. NO DAIRY, TOMATO, OR ORANGE JUICE. NO RED OR PURPLE! DAY 2 - (day before your colonoscopy) SAME DAY 1, Continue clear fluids and then follow the instructions below~ 8:00 AM - May Mix the Miralax prep with 64 oz. of Gatorade or any of the clear fluids listed above and place in fridge. 1:00 PM - Take 2 Dulcolax Tablets with 8oz of water 3:00 PM - Start to drink the Miralax mixture. - Finish by midnight 4:00 PM - Take 2 Dulcolax tablets with 8oz of water. You may continue to drink clear liquids while you are taking your prep and after you finish as long as it is before midnight. Drink lots of fluids so you don't become dehydrated. Nothing to drink after midnight unless instructed otherwise by nursing staff and/or physician. Please remember to take your normal medications the morning of your procedure with a small sip of water especially your blood pressure medications. If you are diabetic, you need to contact your physicians regarding how to take your diabetic medications and/or insulin during the prepping period and the day of the procedure. The times above are a general guide. You may change the times if needed to accommodate your schedule. Example, instead of taking your first step at 1 PM you may take your first step at 6 PM. Your time frames would be: 6 PM take 2 Dulcolax tablets, at 8 PM you would start drinking the Miralax mixture and at 9 PM you would take two more Dulcolax tablets. Any questions please call [phone] or [phone] and ask for the general surgery nurses. What is a colonoscopy? A colonoscopy is an outpatient procedure in which the inside of the large intestine (colon and rectum) is examined. A colonoscopy is commonly used to evaluate gastrointestinal symptoms, such as rectal and intestinal bleeding, abdominal pain, or change in bowel habits. Colonoscopies are also performed in individuals without symptoms to check for colorectal polyps or cancer. A screening colonoscopy is recommended for anyone 50 years of age or older, and for anyone with parents, siblings, or children with a history of colorectal cancer or polyps. What happens before a colonoscopy? To have a successful colonoscopy, your bowel must be empty so that your physician can clearly view the colon. To do this, it is very important to read and follow all of the instructions given to you at least 2 weeks BEFORE your exam. If your bowel is not empty, your colonoscopy will not be successful and may have to be repeated. If you feel nauseated or vomit while taking the bowel preparation, wait 30 minutes before drinking more fluid and start with small sips of solution. Some activity (such as walking) may help decrease the nausea you are feeling. If the nausea persist, please contact the office at [phone] and ask for the provider's office that scheduled your colonoscopy or nurse web content producer at [phone]. You may experience skin irritation around the anus due to the passage of liquid stool. To prevent and treat skin irritation you should: Apply Vaseline or Desitin ointment to the skin around the anus before drinking the bowel preparation medications. These products can be purchased at any [employer]. Wipe the skin after each bowel movement with disposable wet wipes instead of toilet paper. These are found in the toilet paper area of the store. Sit in a bathtub filled with warm water for 10-15 minutes after you finish passing a stool; after soaking blot the skin dry with a soft cloth, apply Vaseline or Desitin ointment to the anal area, and place a cotton ball just outside your anus to absorb any leaking fluid. What happens during a Colonoscopy? During a colonoscopy, an experienced physician uses a colonoscope (a long, flexible instrument about inch in diameter) to view the lining of the colon, the colonscope is inserted into the rectum and advanced through the large intestine. If necessary during a colonoscopy, small amounts of tissue can be removed for analysis (biopsy) and polyps can be identifies and entirely removed. In many cases, a colonoscopy allows accurate diagnosis and treatment of colorectal problems without the need for a major operation. You are asked to wear a hospital gown and an IV will be started You are given a pain reliever and sedative intravenously (in your vein). You will feel relaxed and somewhat drowsy You will lie on your left side, with your knees drawn up towards your chest A small amount of air is used to expand the colon so the physicians can see the colon grove. You may feel mild cramping during the procedure. Cramping can be reduced by taking slow, deep breaths. The colonoscope is slowly withdrawn while the lining of your bowel is carefully examined. The procedure last from approximately 30-60 min. What happens after a Colonoscopy? You will stay in a recovery room for observation until you are ready for discharge You may feel some cramping and/or a sensation of having gas, but this quickly passes If sedation has been given, a responsible family member or friend MUST drive you home. Avoid alcohol, driving and operating machinery for 24 hrs. following the procedure. Unless otherwise instructed, you may immediately return to your normal diet. We recommend you wait until the day after your procedure to resume normal activities. If Polyps were removed or a biopsy was taken, the physicians performing the colonoscopy will tell you when it is safe to resume taking your blood thinners. If a biopsy was taken or if a polyp was removed, you will notice a little amount of rectal bleeding for 1-2 days after the procedure. If you have a large amount of rectal bleeding, high or persistent fever, or severe abdominal pain within the next 2 weeks, please go to your local emergency room and call the physician who performed your exam. documented in this encounter [facility] 02-24-2024 History of Present illness Narrative HISTORY AND PHYSICAL Sundeep Lopez : 1950 REFERRING PHYSICIAN: Alexandr Farris III [address] [facility] [address] CHIEF COMPLAINT: Patient presents with: New Patient: Consult - Colonoscopy consult HPI: Sundeep is a 73 year old male referred for endoscopy. Sundeep notes due for screening colonoscopy- hx of polyps (2023) & family hx of colon cancer in father. Sundeep denies abdominal pain.. Sundeep denies diarrhea. Sundeep denies constipation. Sundeep denies a change in bowel habits. Sundeep denies melena. Sundeep denies bright red blood per rectum. Sundeep denies hemorrhoids. Sundeep has undergone prior endoscopy. Last colonoscopy was 02/18/[address] Herzog at [facility]. Sedation:Midazolam 4.5mg IV, Meperidine 100mg IV Impression: -non-thrombosed external hemorrhoids, non-thrombosed internal hemorrhoids, internal hemorrhoids that prolapse with straining, but spontaneously regress to the resting position (Grade 2) and enlarged prostate found on digital rectal exam. -one 18mm polyp in the cecum, removed using injection-lift and hot snare. Resected and retrieved. Clips were placed. -one 14mm polyp in the mid ascedning colon,removed with hot snare and removed using injection-lift and hot snare. Resected and retrieved. -diverticulosis in the entire examined colon. Pathology: A. Mid ascending colon polyp, biopsy: Fragments of tubular adenoma B. Cecal polyp, biopsy: Fragments of tubular adenoma. Benign lymphoid aggregates. Had an EGD completed at [facility] 08/[address] Farris. Sedation received:Fentanyl 100 micrograms IV, Midazolam 5 mg IV, Diphenhydramine 50 mg IV, Benzocaine spray Current Outpatient Medications Medication Sig sildenafil (VIAGRA) 100 mg tablet Take 1 tablet by mouth once daily as needed. Take 30-60 minutes before sexual activity. Tadalafil (CIALIS) 20 mg tablet Take 1 tablet by mouth as needed. As directed omeprazole (PRILOSEC) 20 mg capsule Take 1 capsule by mouth once daily. No current facility-administered medications for this visit. ALLERGIES: Patient has no known allergies. PAST MEDICAL HISTORY Diagnosis Date Wahl's esophagus [...] hemorrhoids without mention of complication Hemorrhoids Vertigo PAST SURGICAL HISTORY Procedure Laterality Date COLONOSCOPY FLX DX W/COLLJ SPEC WHEN PFRMD 06/01/2004 Colonoscopy COLONOSCOPY FLX DX W/COLLJ SPEC WHEN PFRMD 02/07/2012 COLONOSCOPY FLX DX W/COLLJ SPEC WHEN PFRMD 03/04/2017 [facility]2020 Dr. 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/> REDUCIBLE Hernia repair, inguinal bilat FAMILY HISTORY Problem Relation Age of Onset None Mother Hypertension Father Colon Cancer Father 60 Heart Father Ischemic Heart Disease Father None Brother Social History Tobacco Use Smoking status: Never Smokeless tobacco: Never Vaping Use Vaping status: Never Used Substance Use Topics Alcohol use: Yes Comment: moderate Drug use: No REVIEW OF SYMPTOMS: The review of systems data was entered by the nurse and reviewed by me SEE NURSING NOTE PHYSICAL EXAMINATION: General: The patient is 73 year old, male well nourished, well hydrated in no acute distress. The patient is oriented to time, place, and person. VITALS: Blood pressure 137/85, pulse 70, height 170.2 cm (5' 7), weight 73.4 kg (161 lb 12.8 oz), SpO2 97%. Body mass index is 25.34 kg/m . HEENT: Normal cephalic, ataumatic, pupils are equally round, sclera are anicteric, mucous membranes are moist, oropharynx is clear. Neck has no masses, asymmetry or lymphadenopathy. Respiratory: Clear to auscultation and percussion. Normal respiratory excursion and pattern. Cardiac: Examination is regular rate and rhythm. Normal S1/S2 Abdominal exam: Soft, nontender, with no palpable masses. No hepatosplenomegaly. No palpable hernias. Extremities: no clubbing, cyanosis or edema. No adenopathy. LABORATORY VALUES: As Noted RADIOLOGIC STUDIES: As Noted Assessment IMPRESSION: screen for colon cancer, family history of colon cancer, personal history of colon polyps PLAN: I have reviewed my findings with the surgeon. Will plan for lower endoscopy. We discussed the risks and benefits of the planned endoscopy. I have informed the patient that complications can occur including failure to complete the endoscopy and perforation. Sundeep had the opportunity to ask questions concerning the planned endoscopy. My staff has also explained the procedure to the patient in understandable terms and has given the patient printed material concerning the procedure. Sundeep freely consents to surgery. I plan to use Miralax bowel preparation I have explained to the patient the difference between IV conscious sedation and MAC anesthesia - and I have offered either, according to the patient's wishes. I have explained that with IV conscious sedation there is no anesthesia provider available and therefore there is a limitation of the amount of IV medications that can be given and that the patient may wake up in the middle of the procedure and/or experience pain/discomfort during the procedure. Further discussion was done and the patient was given the opportunity to ask questions and all questions were answered. Sundeep chooses MAC anesthesia. Sundeep was counseled that if there are changes in his/her medical condition, to let the office know if surgery should proceed. If there are changes in patient's medical condition from time of this encounter to the day of the procedure that preclude anesthesia, patient may have procedure cancelled for patient's safety. Diagnoses: (Z86.0100) History of colonic polyps (primary encounter diagnosis) (Z80.0) Family history of colon cancer in father (Z12.11) Screen for colon cancer Portions of this documentation were copied and pasted from previous office visit notes in order to provide a cohesive continuity of the history. The note has been reviewed and edited and updated as necessary. Latoya Al APRN.GRAPPLE CREW LEADER documented in this encounter [facility] 02-24-2024 Note HNO ID: [id number] Author: LATOYA AL APRN.CNP Service: ? Author Type: Nurse Practitioner Type: Progress Notes Filed: 02/24/2024 09:16 Note Text: HISTORY AND PHYSICAL Sundeep Lopez : 1950 REFERRING PHYSICIAN: Alexandr Farris III [address] [facility] [address] CHIEF COMPLAINT: Patient presents with: New Patient: Consult - Colonoscopy consult HPI: Sundeep is a 73 year old male referred for endoscopy. Sundeep notes due for screening colonoscopy- hx of polyps (2023) AND family hx of colon cancer in father. Sundeep denies abdominal pain.. Sundeep denies diarrhea. Sundeep denies constipation. Sundeep denies a change in bowel habits. Sundeep denies melena. Sundeep denies bright red blood per rectum. Sundeep denies hemorrhoids. Sundeep has undergone prior endoscopy. Last colonoscopy was 02/18/[address] Herzog at [facility]. Sedation:Midazolam 4.5mg IV, Meperidine 100mg IV Impression: -non-thrombosed external hemorrhoids, non-thrombosed internal hemorrhoids, internal hemorrhoids that prolapse with straining, but spontaneously regress to the resting position (Grade 2) and enlarged prostate found on digital rectal exam. -one 18mm polyp in the cecum, removed using injection-lift and hot snare. Resected and retrieved. Clips were placed. -one 14mm polyp in the mid ascedning colon,removed with hot snare and removed using injection-lift and hot snare. Resected and retrieved. -diverticulosis in the entire examined colon. Pathology: A. Mid ascending colon polyp, biopsy: Fragments of tubular adenoma B. Cecal polyp, biopsy: Fragments of tubular adenoma. Benign lymphoid aggregates. Had an EGD completed at [facility] 08/[address] Farris. Sedation received:Fentanyl 100 micrograms IV, Midazolam 5 mg IV, Diphenhydramine 50 mg IV, Benzocaine spray Current Outpatient Medications Medication Sig sildenafil (VIAGRA) 100 mg tablet Take 1 tablet by mouth once daily as needed. Take 30-60 minutes before sexual activity. Tadalafil (CIALIS) 20 mg tablet Take 1 tablet by mouth as needed. As directed omeprazole (PRILOSEC) 20 mg capsule Take 1 capsule by mouth once daily. No current facility-administered medications for this visit. ALLERGIES: Patient has no known allergies. PAST MEDICAL HISTORY Diagnosis Date Wahl's esophagus [...] hemorrhoids without mention of complication Hemorrhoids Vertigo PAST SURGICAL HISTORY Procedure Laterality Date COLONOSCOPY FLX DX W/COLLJ SPEC WHEN PFRMD 06/01/2004 Colonoscopy COLONOSCOPY FLX DX W/COLLJ SPEC WHEN PFRMD 02/07/2012 COLONOSCOPY FLX DX W/COLLJ SPEC WHEN PFRMD 03/04/2017 [facility]2020 Dr. 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/> REDUCIBLE Hernia repair, inguinal bilat FAMILY HISTORY Problem Relation Age of Onset None Mother Hypertension Father Colon Cancer Father 60 Heart Father Ischemic Heart Disease Father None Brother Social History Tobacco Use Smoking status: Never Smokeless tobacco: Never Vaping Use Vaping status: Never Used Substance Use Topics Alcohol use: Yes Comment: moderate Drug use: No REVIEW OF SYMPTOMS: The review of systems data was entered by the nurse and reviewed by me SEE NURSING NOTE PHYSICAL EXAMINATION: General: The patient is 73 year old, male well nourished, well hydrated in no acute distress. The patient is oriented to time, place, and person. VITALS: Blood pressure 137/85, pulse 70, height 170.2 cm (5' 7), weight 73.4 kg (161 lb 12.8 oz), SpO2 97%. Body mass index is 25.34 kg/m?. HEENT: Normal cephalic, ataumatic, pupils are equally round, sclera are anicteric, mucous membranes are moist, oropharynx is clear. Neck has no masses, asymmetry or lymphadenopathy. Respiratory: Clear to auscultation and percussion. Normal respiratory excursion and pattern. Cardiac: Examination is regular rate and rhythm. Normal S1/S2 Abdominal exam: Soft, nontender, with no palpable masses. No hepatosplenomegaly. No palpable hernias. Extremities: no clubbing, cyanosis or edema. No adenopathy. LABORATORY VALUES: As Noted RADIOLOGIC (more content not included)... [facility] 10-21-2023 Instructions Magalys Larson MD - 10/21/2023 2:23 PM EDT -Take [id number] anti-inflammatories such as Aleve (220 mg tablets twice a day) or ibuprofen (200 mg tablets, 2-3 tablets 2-3 times a day) for 3-7 days to see if it helps with the inflammation and clicking in your jaw. - Consult your dentist about the jaw issue to see if any adjustments are needed with your dental appliances. - Consider physical therapy for your jaw if the problem persists and becomes more severe. - Continue with your stretching exercises, especially before getting out of bed and before physical activities, to help with the stiffness in your hips and back. - Consult your ict quality assurance engineer about adjusting your hearing aids to better filter out background noise and focus on the conversation you are trying to listen to. - Consider using a cane or walking stick for balance, especially in low-light situations or when you need to close your eyes (e.g., in the shower). - Continue taking omeprazole for acid reflux and Wahl's esophagus. - Complete the lab work that has been ordered to check your electrolytes, kidney function, and other parameters. - Do not take Cialis and Viagra at the same time. Use one or the other as needed. - Be aware of potential side effects of Cialis and Viagra, such as lightheadedness, dizziness, and vision issues. Consult your pharmacist or doctor if you have any concerns. - Consider discussing your hearing and attention issues with a psychologist or counselor to help with communication strategies and managing distractions. - Consider uploading a copy of your advance directives to [employer] for your healthcare team's reference. - Continue with your physical activities and hobbies, such as running and participating in half marathons, as long as you are able to do so safely. documented in this encounter [facility] 10-21-2023 Note HNO ID: [id number] Author: MAGALYS LARSON MD Service: ? Author Type: Physician Type: Progress Notes Filed: 11/17/2023 01:02 Note Text: This note was created using [employer]. Subjective Sundeep Lopez is a 72 year old male. HISTORY Sundeep Lopez is a 72 year old gentleman here for yearly exam and follow up appointment. (declined to do Medicare Wellness given multiple medical issues needed to address) Patient is a 72-year-old male presenting with multiple concerns, including left-sided jaw clicking, bilateral hip stiffness, hearing difficulties, and balance issues. Patient reports a persistent clicking sound in the left jaw, which began after using a new oral appliance for sleep apnea. He describes the sound as occurring all the time and notes that it is particularly noticeable when chewing hard or crunchy foods. He denies any associated pain or jaw clenching/grinding during sleep. Patient also reports bilateral hip stiffness, more pronounced on the left side, upon waking in the morning and after prolonged sitting. He describes the stiffness as improving with movement. He currently performs stretching exercises before biking or running, which he finds helpful. Patient has a history of hearing loss and currently uses hearing aids. Despite this, he reports difficulty hearing conversations, especially in the presence of background noise. He also notes a tendency for his mind to wander during conversations, which he attributes to a vivid imagination. He denies any formal diagnosis of ADHD but mentions that his daughter exhibits similar tendencies. Patient has a history of a small ischemic stroke, which he does not recall but was identified by a neurologist based on imaging studies. He reports ongoing balance issues, particularly in low-light conditions, but denies any dizziness or spinning sensations. He has undergone therapy for balance issues and uses grove for support when walking in the dark. He declines the use of a cane or walking stick. Patient is currently taking omeprazole for GERD and has a history of Wahl's esophagus. He reports that his GERD is well-controlled with the medication. He also mentions a previous fundoplication procedure. He denies any current feelings of depression. Does have HCDPOA and LW. Surrogate decision maker is PAST MEDICAL HISTORY 03/14/2014: Wahl's esophagus determined by endoscopy No date: Diverticulosis of colon (without mention of hemorrhage) Comment: Diverticulosis No date: Family history of malignant neoplasm of gastrointestinal tract No date: GERD (gastroesophageal reflux disease) No date: Inguinal hernia without mention of obstruction or gangrene, unilateral or unspecified, (not specified as recurrent) No date: Sensorineural hearing loss, unilateral, left ear, with restricted hearing on the contralateral side No date: Unspecified hemorrhoids without mention of complication Comment: Hemorrhoids No date: Vertigo Current Outpatient Medications Medication Sig omeprazole (PRILOSEC) 20 mg capsule Take 1 capsule by mouth once daily. Tadalafil (CIALIS) 20 mg tab(s) Take 1 tablet by mouth as needed. As directed No current facility-administered medications for this visit. ALLERGIES No Known Allergies FAMILY HISTORY Problem Relation Age of Onset Hypertension Father Colon Cancer Father 60 Heart Father Ischemic Heart Disease Father None Mother None Brother Social History Tobacco Use Smoking status: Never Smokeless tobacco: Never Substance Use Topics Alcohol use: Yes Comment: moderate Drug use: No Review of Systems Objective BP 122/80 Pulse (!) 56 Temp 37.1 ?C (98.7 ?F) Resp 16 Ht 169 cm (5' 6.54) Wt 72.5 kg (159 lb 13.3 oz) SpO2 98% BMI 25.38 kg/m? Last 5 Encounter Wt Readings: Date: Wt: 10/21/2023 72.5 kg (159 lb 13.3 oz) 09/12/2023 71.2 kg (156 lb 15.5 oz) 08/19/2023 71.2 kg (157 lb) 10/15/2022 67.1 kg (147 lb 14.4 oz) 10/02/2021 68.5 kg (151 lb) No waist measurement recorded Estimated body mass index is 25.38 kg/m? as calculated from the following: Height as of this encounter: 169 cm (5' 6.54). Weight as of this encounter: 72.5 kg (159 lb 13.3 oz). Last 5 Encounter BP Readings: Date: BP: 10/21/2023 122/80 09/12/2023 122/90 08/19/2023 134/85 10/15/2022 108/68 10/02/2021 122/72 Physical Exam Vitals reviewed. Constitutional: Appearance: Normal appearance. HENT: Head: Normocephalic. Right Ear: Tympanic membrane, ear canal and external ear normal. Left Ear: Tympanic membrane, ear canal and external ear normal. Mouth/Throat: Mouth: Mucous membranes are moist. Pharynx: Oropharynx is clear. Eyes: Extraocular Movements: Extraocular movements intact. Conjunctiva/sclera: Conjunctivae normal. Pupils: Pupils are equal, round, and reactive to light. Neck: Thyroid: No thyromegaly. Vascular: No carotid bruit. Cardiovascular: Ra (more content not included)... [facility] 10-21-2023 History of Present illness Narrative This note was created using [employer]Smart[employer]. Subjective Sundeep Lopez is a 72 year old male. HISTORY Sundeep Lopez is a 72 year old gentleman here for yearly exam and follow up appointment. (declined to do Medicare Wellness given multiple medical issues needed to address) Patient is a 72-year-old male presenting with multiple concerns, including left-sided jaw clicking, bilateral hip stiffness, hearing difficulties, and balance issues. Patient reports a persistent clicking sound in the left jaw, which began after using a new oral appliance for sleep apnea. He describes the sound as occurring all the time and notes that it is particularly noticeable when chewing hard or crunchy foods. He denies any associated pain or jaw clenching/grinding during sleep. Patient also reports bilateral hip stiffness, more pronounced on the left side, upon waking in the morning and after prolonged sitting. He describes the stiffness as improving with movement. He currently performs stretching exercises before biking or running, which he finds helpful. Patient has a history of hearing loss and currently uses hearing aids. Despite this, he reports difficulty hearing conversations, especially in the presence of background noise. He also notes a tendency for his mind to wander during conversations, which he attributes to a vivid imagination. He denies any formal diagnosis of ADHD but mentions that his daughter exhibits similar tendencies. Patient has a history of a small ischemic stroke, which he does not recall but was identified by a neurologist based on imaging studies. He reports ongoing balance issues, particularly in low-light conditions, but denies any dizziness or spinning sensations. He has undergone therapy for balance issues and uses grove for support when walking in the dark. He declines the use of a cane or walking stick. Patient is currently taking omeprazole for GERD and has a history of Walh's esophagus. He reports that his GERD is well-controlled with the medication. He also mentions a previous fundoplication procedure. He denies any current feelings of depression. Does have HCDPOA and LW. Surrogate decision maker is PAST MEDICAL HISTORY 03/14/2014: Wahl's esophagus determined by endoscopy No date: Diverticulosis of colon (without mention of hemorrhage) Comment: Diverticulosis No date: Family history of malignant neoplasm of gastrointestinal tract No date: GERD (gastroesophageal reflux disease) No date: Inguinal hernia without mention of obstruction or gangrene, unilateral or unspecified, (not specified as recurrent) No date: Sensorineural hearing loss, unilateral, left ear, with restricted hearing on the contralateral side No date: Unspecified hemorrhoids without mention of complication Comment: Hemorrhoids No date: Vertigo Current Outpatient Medications Medication Sig omeprazole (PRILOSEC) 20 mg capsule Take 1 capsule by mouth once daily. Tadalafil (CIALIS) 20 mg tab(s) Take 1 tablet by mouth as needed. As directed No current facility-administered medications for this visit. ALLERGIES No Known Allergies FAMILY HISTORY Problem Relation Age of Onset Hypertension Father Colon Cancer Father 60 Heart Father Ischemic Heart Disease Father None Mother None Brother Social History Tobacco Use Smoking status: Never Smokeless tobacco: Never Substance Use Topics Alcohol use: Yes Comment: moderate Drug use: No Review of Systems Objective BP 122/80 Pulse (!) 56 Temp 37.1 C (98.7 F) Resp 16 Ht 169 cm (5' 6.54) Wt 72.5 kg (159 lb 13.3 oz) SpO2 98% BMI 25.38 kg/m Last 5 Encounter Wt Readings: Date: Wt: 10/21/2023 72.5 kg (159 lb 13.3 oz) 09/12/2023 71.2 kg (156 lb 15.5 oz) 08/19/2023 71.2 kg (157 lb) 10/15/2022 67.1 kg (147 lb 14.4 oz) 10/02/2021 68.5 kg (151 lb) No waist measurement recorded Estimated body mass index is 25.38 kg/m as calculated from the following: Height as of this encounter: 169 cm (5' 6.54). Weight as of this encounter: 72.5 kg (159 lb 13.3 oz). Last 5 Encounter BP Readings: Date: BP: 10/21/2023 122/80 09/12/2023 122/90 08/19/2023 134/85 10/15/2022 108/68 10/02/2021 122/72 Physical Exam Vitals reviewed. Constitutional: Appearance: Normal appearance. HENT: Head: Normocephalic. Right Ear: Tympanic membrane, ear canal and external ear normal. Left Ear: Tympanic membrane, ear canal and external ear normal. Mouth/Throat: Mouth: Mucous membranes are moist. Pharynx: Oropharynx is clear. Eyes: Extraocular Movements: Extraocular movements intact. Conjunctiva/sclera: Conjunctivae normal. Pupils: Pupils are equal, round, and reactive to light. Neck: Thyroid: No thyromegaly. Vascular: No carotid bruit. Cardiovascular: Rate and Rhythm: Normal rate and regular rhythm. Pulses: Normal pulses. Heart sounds: Normal heart sounds. Pulmonary: Effort: Pulmonary effort is normal. Breath sounds: Normal breath sounds. Abdominal: General: Abdomen is flat. There is no distension. Palpations: Abdomen is soft. There is no mass. Musculoskeletal: Cervical back: Normal range of motion. Right lower leg: No edema. Left lower leg: No edema. Skin: General: Skin is warm and dry. Neurological: General: No focal deficit present. Mental Status: He is alert and oriented to person, place, and time. Deep Tendon Reflexes: Reflexes normal. Psychiatric: Attention and Perception: Attention and perception normal. Mood and Affect: Mood and affect normal. Speech: Speech normal. Behavior: Behavior normal. Thought Content: Thought content normal. Cognition and Memory: Cognition normal. Judgment: Judgment normal. Last labs: Latest Ref Rng 03/13/2020 Protein, Total 6.3 - 8.0 g/dL [...] LDL:HDL Ratio <2.54 1.19 Assessment and Plan # Wahl's esophagus determined by endoscopy - GERD well-controlled with omeprazole; recent upper GI endoscopy by Dr. Farris showed no significant findings. - Continue omeprazole therapy. # TMJ syndrome - Onset of clicking in the left TMJ following use of a new oral appliance for EMERALD. - No associated pain or bruxism noted. - Recommended NSAIDs: Aleve 220 mg BID or Ibuprofen 400-600 mg TID for 3-7 days to reduce inflammation. - Advised follow-up with dentist for further evaluation and potential adjustment of oral appliance. # EMERALD on CPAP - Not a candidate for Inspire device; currently using CPAP with oral appliance. - Continue current CPAP therapy. # Stiffness of left hip joint - Stiffness noted primarily in the morning and after prolonged sitting. - Recommended stretching exercises before bed to alleviate stiffness. - Consider NSAIDs as needed for inflammation. # Bilateral hearing loss, unspecified hearing loss type - Difficulty processing conversations, especially with background noise, despite use of high-quality hearing aids. - Advised follow-up with ict quality assurance engineer Sundeep Pfeiffer for potential adjustments to hearing aids to reduce background noise interference. # Balance disorder - History of small ischemic stroke; ongoing balance issues, particularly in low-light conditions. - Previous therapy for balance; patient uses grove for support but declines use of a cane. - Advised caution in low-light situations and consideration of footwear that enhances ground perception. # Encounter for long-term current use of medication - Long-term use of omeprazole for GERD management. - Ordered labs to monitor electrolytes, kidney function, and potential anemia due to prolonged acid kwesi use. # Screening for depression - No signs of depression or hopelessness reported. # Encounter for screening examination for other mental health and behavioral disorders - Discussed potential ADHD-like symptoms affecting attention and conversation processing. - Advised open communication with family about attention challenges. # Encounter for immunization - Administered annual influenza vaccine. Magalys Larson MD documented in this encounter [facility] 09-19-2023 History of Present illness Narrative FOLLOW UP VISIT - ENDOSCOPY Sundeep Lopez 1950 [id number] REFERRING PHYSICIAN: Alexandr Farris III [address] [facility] [id number] Sundeep Lopez is a patient I am following for history of Wahl's esophagus. Dr. Farris performed upper endoscopy on 09/12/2023. The patient was found to have Impression: - Esophageal mucosal changes suspicious for short-segment Wahl's esophagus. Biopsied. - Z-line variable, 40 cm from the incisors. - Normal stomach. Biopsied. - Normal examined duodenum. Biopsied. Pathology: FINAL DIAGNOSIS A. Duodenum, biopsy: - Duodenal mucosa with no significant diagnostic alteration. B. Stomach, antrum, biopsy: - Gastric antral mucosa with no significant diagnostic alteration. C. Esophagus, distal, biopsy: - Squamous epithelium with features of reflux. - Inflamed gastric cardia-type mucosa. - No evidence of intestinal metaplasia or dysplasia. D. Esophagus, mid, biopsy: - Squamous epithelium with no significant diagnostic alteration. The patient notes no complaints since the procedure. VITALS: There were no vitals taken for this visit. General: patient is alert, cooperative, pleasant and in no acute distress On examination, the abdomen is benign. Assessment ASSESSMENT/PLAN: 1. Wahl's esophagus determined by endoscopy - ICD9: 530.85, ICD10: K22.70 - Prilosec 20mg PO daily x 3 mos The operative findings and pathology report were reviewed with the patient, and the patient has had the opportunity to ask questions and have questions answered. If the patient notes any problems or changes in bowel function, the patient should contact me immediately. Otherwise I recommend follow up endoscopy in 3 years. HM updated and recall letter generated. Discussed treatment plan and patient voices understanding. Patient's questions answered appropriately. Return to the office as needed Latoya Al APRN.VANESSA documented in this encounter [facility] 09-19-2023 Note HNO ID: [id number] Author: LATOYA AL APRN.CNP Service: ? Author Type: Nurse Practitioner Type: Progress Notes Filed: 09/19/2023 14:59 Note Text: FOLLOW UP VISIT - ENDOSCOPY Sundeep M Diony 1950 [id number] REFERRING PHYSICIAN: Alexandr Farris III [address] [facility] [address] Sundeepcorey Segoviawillow is a patient I am following for history of Wahl's esophagus. Dr. Farris performed upper endoscopy on 09/12/2023. The patient was found to have Impression: - Esophageal mucosal changes suspicious for short-segment Wahl's esophagus. Biopsied. - Z-line variable, 40 cm from the incisors. - Normal stomach. Biopsied. - Normal examined duodenum. Biopsied. Pathology: FINAL DIAGNOSIS A. Duodenum, biopsy: - Duodenal mucosa with no significant diagnostic alteration. B. Stomach, antrum, biopsy: - Gastric antral mucosa with no significant diagnostic alteration. C. Esophagus, distal, biopsy: - Squamous epithelium with features of reflux. - Inflamed gastric cardia-type mucosa. - No evidence of intestinal metaplasia or dysplasia. D. Esophagus, mid, biopsy: - Squamous epithelium with no significant diagnostic alteration. The patient notes no complaints since the procedure. VITALS: There were no vitals taken for this visit. General: patient is alert, cooperative, pleasant and in no acute distress On examination, the abdomen is benign. Assessment ASSESSMENT/PLAN: 1. Wahl's esophagus determined by endoscopy - ICD9: 530.85, ICD10: K22.70 - Prilosec 20mg PO daily x 3 mos The operative findings and pathology report were reviewed with the patient, and the patient has had the opportunity to ask questions and have questions answered. If the patient notes any problems or changes in bowel function, the patient should contact me immediately. Otherwise I recommend follow up endoscopy in 3 years. HM updated and recall letter generated. Discussed treatment plan and patient voices understanding. Patient's questions answered appropriately. Return to the office as needed Latoya Al APRN.GRAPPLE CREW LEADER [facility] 09-12-2023 History and physical note HISTORY AND PHYSICAL Sundeep Lopez 1950 REFERRING PHYSICIAN: Magalys Larson MD CHIEF COMPLAINT: Consult (colonoscopy/EGD consult/) HPI: The patient is a 72 year old male referred for endoscopy. Sundeep notes no history of colon complaints. The patient notes no history of upper GI complaints. Sundeep has undergone prior endoscopy. Patient had an upper endoscopy in 2020 this was done for Wahl's esophagus The patient is being seen by me today at the request of Dr. Magalys Larson MD for my opinion and advice regarding Colon cancer screening Wahl's esophagus determined by endoscopy. PAST MEDICAL HISTORY PAST MEDICAL HISTORY Diagnosis Date Wahl's esophagus [...] hemorrhoids without mention of complication Hemorrhoids Vertigo PAST SURGICAL HISTORY PAST SURGICAL HISTORY Procedure Laterality Date COLONOSCOPY FLX DX W/COLLJ SPEC WHEN PFRMD 06/01/2004 Colonoscopy COLONOSCOPY FLX DX W/COLLJ SPEC WHEN PFRMD 02/07/2012 COLONOSCOPY FLX DX W/COLLJ SPEC WHEN PFRMD 03/04/2017 [facility] Dr. Anthony [facility]-repeat in 3 years EGD TRANSORAL BIOPSY SINGLE/MULTIPLE 02/07/2012 EGD TRANSORAL BIOPSY SINGLE/MULTIPLE 04/04/2014 ESOPHAGOGASTRODUODENOSCOPY TRANSORAL DIAGNOSTIC 03/04/2017 [facility]OES[facility] REFLX TEST W/TELEMTRY PH ELTRD 04/04/2014 LAPS SURG ESOPG/GSTR FUNDOPLASTY 07/06/2014 ROTATOR CUFF REPAIR 2009 left RPR 1ST INGUN HRNA AGE 5 YRS/> REDUCIBLE Hernia repair, inguinal bilat CURRENT MEDICATIONS Current Outpatient Medications Medication Sig Tadalafil (CIALIS) 20 mg tab(s) Take 1 tablet by mouth as needed. As directed No current facility-administered medications for this visit. ALLERGIES: Patient has no known allergies. PERSONAL HISTORY: SOCIAL HISTORY Social History Tobacco Use Smoking status: Never Smokeless tobacco: Never Substance Use Topics Alcohol use: Yes Comment: moderate Drug use: No FAMILY HISTORY: FAMILY HISTORY FAMILY HISTORY Problem Relation Age of Onset Hypertension Father Colon Cancer Father 60 Heart Father Ischemic Heart Disease Father None Mother None Brother REVIEW OF SYMPTOMS: The review of systems data was entered by the nurse and reviewed by me There are no exam notes on file for this visit. PHYSICAL EXAMINATION: General: The patient is 72 year old male, well nourished, well hydrated in no acute distress. The patient is oriented to time, place, and person. VITALS: Blood pressure 134/85, pulse (!) 54, height 160.9 cm (5' 3.35), weight 71.2 kg (157 lb), SpO2 97%. Body mass index is 27.5 kg/m . HEENT: Normal cephalic, ataumatic, pupils are equally round, sclera are anicteric, mucous membranes are moist, oropharynx is clear. Neck has no masses, asymmetry or lymphadenopathy. Thyroid is unremarkable. Respiratory: Clear to auscultation and percussion. Normal respiratory excursion and pattern. Cardiac: Examination is regular rate and rhythm. Abdominal exam: Soft, nontender, with no palpable masses. No hepatosplenomegaly. No palpable hernias. Rectal exam: exam deferred Extremities: no clubbing, cyanosis or edema. No adenopathy. Other: LABORATORY VALUES: As Noted RADIOLOGIC STUDIES: As Noted Assessment IMPRESSION: Colon cancer screening Wahl's esophagus determined by endoscopy PLAN: I plan to perform upper endoscopy. We discussed the risks and benefits of the planned endoscopy. I have informed the patient that complications can occur including failure to complete the endoscopy and perforation. The patient had the opportunity to ask questions concerning the planned endoscopy. My staff has also explained the procedure to the patient in understandable terms and has given the patient printed material concerning the procedure. The patient freely consents to surgery. Diagnoses: (Z12.11) Colon cancer screening (K22.70) Wahl's esophagus determined by endoscopy My findings have been communicated to Dr. Magalys Larson MD via shared medical record. This note will be forwarded to Dr. Magalys Larson MD. Return to Clinic: The patient is instructed to follow-up with me 1 week post operatively. Alexandr Farris III, MD UPDATED HISTORY AND PHYSICAL EXAMINATION SERVICE DATE: 09/12/2023 SERVICE TIME: 11:04 AM PHYSICAL EXAM MUST BE COMPLETED ON ADMISSION The History and Physical (completed in the past 30 days) has been reviewed and the patient has been examined. The contents accurately reflect the patient's condition with the following additions or revisions since the H&P was completed. Examination indicates no changes. This H&P can be found in the attached. SIGNATURE: Alexandr Farris III, MD PATIENT NAME: Sundeep Lopez DATE: September 12, 2023 TIME: 11:04 AM [facility] Work Phone: 09-12-2023 History and physical note HISTORY AND PHYSICAL Sundeep Lopez 1950 REFERRING PHYSICIAN: Magalys Larson MD CHIEF COMPLAINT: Consult (colonoscopy/EGD consult/) HPI: The patient is a 72 year old male referred for endoscopy. Sundeep notes no history of colon complaints. The patient notes no history of upper GI complaints. Sundeep has undergone prior endoscopy. Patient had an upper endoscopy in 2020 this was done for Wahl's esophagus The patient is being seen by me today at the request of Dr. Magalys Larson MD for my opinion and advice regarding Colon cancer screening Wahl's esophagus determined by endoscopy. PAST MEDICAL HISTORY PAST MEDICAL HISTORY Diagnosis Date Wahl's esophagus [...] hemorrhoids without mention of complication Hemorrhoids Vertigo PAST SURGICAL HISTORY PAST SURGICAL HISTORY Procedure Laterality Date COLONOSCOPY FLX DX W/COLLJ SPEC WHEN PFRMD 06/01/2004 Colonoscopy COLONOSCOPY FLX DX W/COLLJ SPEC WHEN PFRMD 02/07/2012 COLONOSCOPY FLX DX W/COLLJ SPEC WHEN PFRMD 03/04/2017 Next colon in 5 years--[facility] Herzog EGD 08/22/2020 Dr. Anthony [facility]og[facility]-repeat in 3 years EGD TRANSORAL BIOPSY SINGLE/MULTIPLE 02/07/2012 EGD TRANSORAL BIOPSY SINGLE/MULTIPLE 04/04/2014 ESOPHAGOGASTRODUODENOSCOPY TRANSORAL DIAGNOSTIC 03/04/2017 Next [facility] GASTROESOPHAG REFLX TEST W/TELEMTRY PH ELTRD 04/04/2014 LAPS SURG ESOPG/GSTR FUNDOPLASTY 07/06/2014 ROTATOR CUFF REPAIR 2009 left RPR 1ST INGUN HRNA AGE 5 YRS/> REDUCIBLE Hernia repair, inguinal bilat CURRENT MEDICATIONS Current Outpatient Medications Medication Sig Tadalafil (CIALIS) 20 mg tab(s) Take 1 tablet by mouth as needed. As directed No current facility-administered medications for this visit. ALLERGIES: Patient has no known allergies. PERSONAL HISTORY: SOCIAL HISTORY Social History Tobacco Use Smoking status: Never Smokeless tobacco: Never Substance Use Topics Alcohol use: Yes Comment: moderate Drug use: No FAMILY HISTORY: FAMILY HISTORY FAMILY HISTORY Problem Relation Age of Onset Hypertension Father Colon Cancer Father 60 Heart Father Ischemic Heart Disease Father None Mother None Brother REVIEW OF SYMPTOMS: The review of systems data was entered by the nurse and reviewed by me There are no exam notes on file for this visit. PHYSICAL EXAMINATION: General: The patient is 72 year old male, well nourished, well hydrated in no acute distress. The patient is oriented to time, place, and person. VITALS: Blood pressure 134/85, pulse (!) 54, height 160.9 cm (5' 3.35), weight 71.2 kg (157 lb), SpO2 97%. Body mass index is 27.5 kg/m . HEENT: Normal cephalic, ataumatic, pupils are equally round, sclera are anicteric, mucous membranes are moist, oropharynx is clear. Neck has no masses, asymmetry or lymphadenopathy. Thyroid is unremarkable. Respiratory: Clear to auscultation and percussion. Normal respiratory excursion and pattern. Cardiac: Examination is regular rate and rhythm. Abdominal exam: Soft, nontender, with no palpable masses. No hepatosplenomegaly. No palpable hernias. Rectal exam: exam deferred Extremities: no clubbing, cyanosis or edema. No adenopathy. Other: LABORATORY VALUES: As Noted RADIOLOGIC STUDIES: As Noted Assessment IMPRESSION: Colon cancer screening Wahl's esophagus determined by endoscopy PLAN: I plan to perform upper endoscopy. We discussed the risks and benefits of the planned endoscopy. I have informed the patient that complications can occur including failure to complete the endoscopy and perforation. The patient had the opportunity to ask questions concerning the planned endoscopy. My staff has also explained the procedure to the patient in understandable terms and has given the patient printed material concerning the procedure. The patient freely consents to surgery. Diagnoses: (Z12.11) Colon cancer screening (K22.70) Wahl's esophagus determined by endoscopy My findings have been communicated to Dr. Magalys Larson MD via shared medical record. This note will be forwarded to Dr. Magalys Larson MD. Return to Clinic: The patient is instructed to follow-up with me 1 week post operatively. Alexandr Farris III, MD UPDATED HISTORY AND PHYSICAL EXAMINATION SERVICE DATE: 09/12/2023 SERVICE TIME: 11:04 AM PHYSICAL EXAM MUST BE COMPLETED ON ADMISSION The History and Physical (completed in the past 30 days) has been reviewed and the patient has been examined. The contents accurately reflect the patient's condition with the following additions or revisions since the H&P was completed. Examination indicates no changes. This H&P can be found in the attached. SIGNATURE: Alexandr Farris III, MD PATIENT NAME: Sundeep Lopez DATE: September 12, 2023 TIME: 11:04 AM documented in this encounter [facility] 09-12-2023 Note Formatting of this n ote might be different from the original. The patient received a copy of EGD discharge instructions that contain information for how to contact the physician who performed the procedure and when to seek medical care. [facility] 09-12-2023 Miscellaneous Notes The patient received a copy of EGD discharge instructions that contain information for how to contact the physician who performed the procedure and when to seek medical care. documented in this encounter [facility] 09-12-2023 Nurse Note pt arrived to phase 2 resting on left side. at bedside. SR up x 2, call light in reach. Natasha Vogt RN [facility] 09-12-2023 Nurse Note pt arrived to phase 2 resting on left side. at bedside. SR up x 2, call light in reach. Natasha Vogt RN documented in this encounter [facility] 09-10-2023 Note HNO ID: [id number] Author: ALEXANDR FARRIS MD Service: ? Author Type: Physician Type: Progress Notes Filed: 09/10/2023 08:23 Note Text: HISTORY AND PHYSICAL Sundeep Lopez 1950 REFERRING PHYSICIAN: Magalys Larson MD CHIEF COMPLAINT: Consult (colonoscopy/EGD consult/) HPI: The patient is a 72 year old male referred for endoscopy. Sundeep notes no history of colon complaints. The patient notes no history of upper GI complaints. Sundeep has undergone prior endoscopy. Patient had an upper endoscopy in 2020 this was done for Wahl's esophagus The patient is being seen by me today at the request of Dr. Magalys Larson MD for my opinion and advice regarding Colon cancer screening Wahl's esophagus determined by endoscopy. PAST MEDICAL HISTORY Diagnosis Date Wahl's esophagus [...] hemorrhoids without mention of complication Hemorrhoids Vertigo PAST SURGICAL HISTORY Procedure Laterality Date COLONOSCOPY FLX DX W/COLLJ SPEC WHEN PFRMD 06/01/2004 Colonoscopy COLONOSCOPY FLX DX W/COLLJ SPEC WHEN PFRMD 02/07/2012 COLONOSCOPY FLX DX W/COLLJ SPEC WHEN PFRMD 03/04/2017 Next colon in 5 years--[facility] EGD 08/22/2020 Dr. Anthony [facility]og[facility]-repeat in 3 years EGD TRANSORAL BIOPSY SINGLE/MULTIPLE 02/07/2012 EGD TRANSORAL BIOPSY SINGLE/MULTIPLE 04/04/2014 ESOPHAGOGASTRODUODENOSCOPY TRANSORAL DIAGNOSTIC 03/04/2017 [facility] REFLX TEST W/TELEMTRY PH ELTRD 04/04/2014 LAPS SURG ESOPG/GSTR FUNDOPLASTY 07/06/2014 ROTATOR CUFF REPAIR 2009 left RPR 1ST INGUN HRNA AGE 5 YRS/> REDUCIBLE Hernia repair, inguinal bilat Current Outpatient Medications Medication Sig Tadalafil (CIALIS) 20 mg tab(s) Take 1 tablet by mouth as needed. As directed No current facility-administered medications for this visit. ALLERGIES: Patient has no known allergies. PERSONAL HISTORY: Social History Tobacco Use Smoking status: Never Smokeless tobacco: Never Substance Use Topics Alcohol use: Yes Comment: moderate Drug use: No FAMILY HISTORY: FAMILY HISTORY Problem Relation Age of Onset Hypertension Father Colon Cancer Father 60 Heart Father Ischemic Heart Disease Father None Mother None Brother REVIEW OF SYMPTOMS: The review of systems data was entered by the nurse and reviewed by me There are no exam notes on file for this visit. PHYSICAL EXAMINATION: General: The patient is 72 year old male, well nourished, well hydrated in no acute distress. The patient is oriented to time, place, and person. VITALS: Blood pressure 134/85, pulse (!) 54, height 160.9 cm (5' 3.35), weight 71.2 kg (157 lb), SpO2 97%. Body mass index is 27.5 kg/m?. HEENT: Normal cephalic, ataumatic, pupils are equally round, sclera are anicteric, mucous membranes are moist, oropharynx is clear. Neck has no masses, asymmetry or lymphadenopathy. Thyroid is unremarkable. Respiratory: Clear to auscultation and percussion. Normal respiratory excursion and pattern. Cardiac: Examination is regular rate and rhythm. Abdominal exam: Soft, nontender, with no palpable masses. No hepatosplenomegaly. No palpable hernias. Rectal exam: exam deferred Extremities: no clubbing, cyanosis or edema. No adenopathy. Other: LABORATORY VALUES: As Noted RADIOLOGIC STUDIES: As Noted Assessment IMPRESSION: Colon cancer screening Wahl's esophagus determined by endoscopy PLAN: I plan to perform upper endoscopy. We discussed the risks and benefits of the planned endoscopy. I have informed the patient that complications can occur including failure to complete the endoscopy and perforation. The patient had the opportunity to ask questions concerning the planned endoscopy. My staff has also explained the procedure to the patient in understandable terms and has given the patient printed material concerning the procedure. The patient freely consents to surgery. Diagnoses: (Z12.11) Colon cancer screening (K22.70) Wahl's esophagus determined by endoscopy My findings have been communicated to Dr. Magalys Larson MD via shared medical record. This note will be forwarded to Dr. Magalys Larson MD. Return to Clinic: The patient is instructed to follow-up with me 1 week post operatively. Alexandr Farris III, MD [facility] 09-10-2023 History of Present illness Narrative HISTORY AND PHYSICAL Sundeep Lopez 1950 REFERRING PHYSICIAN: Magalys Larson MD CHIEF COMPLAINT: Consult (colonoscopy/EGD consult/) HPI: The patient is a 72 year old male referred for endoscopy. Sundeep notes no history of colon complaints. The patient notes no history of upper GI complaints. Sundeep has undergone prior endoscopy. Patient had an upper endoscopy in 2020 this was done for Wahl's esophagus The patient is being seen by me today at the request of Dr. Magalys Larson MD for my opinion and advice regarding Colon cancer screening Wahl's esophagus determined by endoscopy. PAST MEDICAL HISTORY Diagnosis Date Wahl's esophagus [...] hemorrhoids without mention of complication Hemorrhoids Vertigo PAST SURGICAL HISTORY Procedure Laterality Date COLONOSCOPY FLX DX W/COLLJ SPEC WHEN PFRMD 06/01/2004 Colonoscopy COLONOSCOPY FLX DX W/COLLJ SPEC WHEN PFRMD 02/07/2012 COLONOSCOPY FLX DX W/COLLJ SPEC WHEN PFRMD 03/04/2017 [facility]2020 Dr[facility] Anthony [facility]repeat [facility] 3 years EGD TRANSORAL BIOPSY SINGLE/MULTIPLE 02/07/2012 EGD TRANSORAL BIOPSY SINGLE/MULTIPLE 04/04/2014 ESOPHAGOGASTRODUODENOSCOPY TRANSORAL DIAGNOSTIC 03/04/2017 [facility]OES[facility] REFLX TEST W/TELEMTRY PH ELTRD 04/04/2014 LAPS SURG ESOPG/GSTR FUNDOPLASTY 07/06/2014 ROTATOR CUFF REPAIR 2009 left RPR 1ST INGUN HRNA AGE 5 YRS/> REDUCIBLE Hernia repair, inguinal bilat Current Outpatient Medications Medication Sig Tadalafil (CIALIS) 20 mg tab(s) Take 1 tablet by mouth as needed. As directed No current facility-administered medications for this visit. ALLERGIES: Patient has no known allergies. PERSONAL HISTORY: Social History Tobacco Use Smoking status: Never Smokeless tobacco: Never Substance Use Topics Alcohol use: Yes Comment: moderate Drug use: No FAMILY HISTORY: FAMILY HISTORY Problem Relation Age of Onset Hypertension Father Colon Cancer Father 60 Heart Father Ischemic Heart Disease Father None Mother None Brother REVIEW OF SYMPTOMS: The review of systems data was entered by the nurse and reviewed by me There are no exam notes on file for this visit. PHYSICAL EXAMINATION: General: The patient is 72 year old male, well nourished, well hydrated in no acute distress. The patient is oriented to time, place, and person. VITALS: Blood pressure 134/85, pulse (!) 54, height 160.9 cm (5' 3.35), weight 71.2 kg (157 lb), SpO2 97%. Body mass index is 27.5 kg/m . HEENT: Normal cephalic, ataumatic, pupils are equally round, sclera are anicteric, mucous membranes are moist, oropharynx is clear. Neck has no masses, asymmetry or lymphadenopathy. Thyroid is unremarkable. Respiratory: Clear to auscultation and percussion. Normal respiratory excursion and pattern. Cardiac: Examination is regular rate and rhythm. Abdominal exam: Soft, nontender, with no palpable masses. No hepatosplenomegaly. No palpable hernias. Rectal exam: exam deferred Extremities: no clubbing, cyanosis or edema. No adenopathy. Other: LABORATORY VALUES: As Noted RADIOLOGIC STUDIES: As Noted Assessment IMPRESSION: Colon cancer screening Wahl's esophagus determined by endoscopy PLAN: I plan to perform upper endoscopy. We discussed the risks and benefits of the planned endoscopy. I have informed the patient that complications can occur including failure to complete the endoscopy and perforation. The patient had the opportunity to ask questions concerning the planned endoscopy. My staff has also explained the procedure to the patient in understandable terms and has given the patient printed material concerning the procedure. The patient freely consents to surgery. Diagnoses: (Z12.11) Colon cancer screening (K22.70) Wahl's esophagus determined by endoscopy My findings have been communicated to Dr. Magalys Larson MD via shared medical record. This note will be forwarded to Dr. Magalys Larson MD. Return to Clinic: The patient is instructed to follow-up with me 1 week post operatively. Alexandr Farris III, MD documented in this encounter [facility] 12-25-2022 History of Present illness Narrative Patient presents for Flu vaccine (will get shingles at pharmacy d/t insurance coverage). Denies any problems at this time. Tolerated injection well. Doris Greer LPN documented in this encounter [facility] 10-15-2022 History of Present illness Narrative This note was created using NoteWriter. Subjective Sundeep Lopez is a 71 year old male. HISTORY Sundeep Lopez is a 71 year old gentleman here [...] F) Resp 18 Ht 166 cm (5' 5.35) Wt 67.1 kg (147 lb 14.4 oz) [...] as of this encounter: 166 cm (5' 5.35). Weight as of this encounter: 67.1 kg (147 lb 14.4 oz). Last 5 Encounter BP Readings: Date: BP: 10/15/2022 140/78 10/02/2021 122/72 06/04/2021 134/94 03/07/2020 106/68 11/18/2018 122/90 10/15/22 0900 10/15/22 0957 BP: 140/78 108/68 Pulse: 73 Resp: 18 Temp: 37 C (98.6 F) SpO2: 98% Weight: 67.1 kg (147 lb 14.4 oz) Height: 166 cm (5' 5.35) Physical Exam Vitals reviewed. Constitutional: Appearance: Normal [...] of medical issues. History and medications reviewed. Epic updated as needed Refills and/or prescriptions taken care of and meds adjusted as indicated after reviewed history, exam and labs. Health Maintenance reviewed. Updated record and/or ordered tests as recorded. Encouraged on efforts at healthy diet and regular exercise and adequate sleep. I spent a total of 47 minutes on the date of the service which included preparing to see the patient, [id number] patient care, completing clinical documentation, performing a medically appropriate examination, counseling and educating the patient/family/caregiver, and ordering medications, tests, or procedures. Magalys Larson MD documented in this encounter [facility] 10-02-2021 Nurse Note Vision Screening Edited by: Wendy Bingham Ma Right eye Left eye Both eyes With correction 20/20 20/30 20/20 documented in this encounter [facility] 10-02-2021 History of Present illness Narrative This note was created using ThinkSmartriter. Subjective Sundeep Lopez is a 70 year old male. HISTORY Sundeep Lopez is a 70 year old gentleman here to be formally established with me. Dr. Juan Daniel Herzog had been his prior PCP. Questions about relational issues. Neck ache--?exercising with specific exercise. Dizziness all the time--work up revealed a small stroke. Working through this. Does a yoga move [...] WHEN PFRMD 03/04/2017 [facility] Dr[facility]repeat in 3 years EGD TRANSORAL BIOPSY SINGLE/MULTIPLE 02/07/2012 EGD TRANSORAL BIOPSY SINGLE/MULTIPLE 04/04/2014 ESOPHAGOGASTRODUODENOSCOPY TRANSORAL DIAGNOSTIC 03/04/2017 [facility] REFLX TEST W/TELEMTRY PH [...] 138/86 Pulse 63 Ht 167.6 cm (5' 6) Wt 68.5 kg (151 lb) SpO2 97% [...] as of this encounter: 167.6 cm (5' 6). Weight as of this encounter: 68.5 kg (151 lb). Last 5 Encounter BP Readings: Date: BP: 10/02/2021 138/86 06/04/2021 134/94 03/07/2020 106/68 11/18/2018 122/90 11/03/2018 110/80 10/02/21 0852 10/02/21 0944 BP: 138/86 122/72 Pulse: 63 SpO2: 97% Weight: 68.5 kg (151 lb) Height: 167.6 cm (5' 6) Physical Exam Vitals reviewed. Constitutional: Appearance: Normal [...] which included preparing to see the patient, [id number] patient care, completing clinical documentation, obtaining and/or reviewing separately obtained history, performing a medically appropriate examination, and counseling and educating the patient/family/caregiver. MD Magalys Martinez MD documented in this encounter [facility] 01-27-2012 History of Past i llness Narrative Problem Noted Date Resolved Date GERD (gastroesophageal reflux disease) 2 03/19/2018 Heartburn 01/27/2012 03/19/2018 Inguinal hernia without ment ion of obstruction or gangrene, unilateral or unspecified, (not specified as recurrent) 03/19/2018 Unspecified hemorrhoids without mention of compl ication 03/19/2018 Overview: Hemorrhoids documented as of this encounter (statuses as of 12/03/2021) [facility] History of Past illness Narrative* Problem Noted Date Diagnosed Date Resolved Date GERD (gastroesophageal reflux disease) 01/27/2012 03/19/2018 Heartburn 01/27/2012 03/19/2018 Inguinal hernia without ment ion of obstruction or gangrene, unilateral or unspecified, (not specified as recurrent) 03/19/2018 Unspecified hemorrhoids with out mention of complication 03/19/2018 Overview: Hemorrhoids documented as of this encounter (statuses as of 11/18/2022) [facility] History of Past illness Narrative* Problem Noted Date Diagnosed Date Resolved Date GERD (gastroesophageal reflux disease) 01/27/2012 03/19/2018 Heartburn 01/27/2012 03/19/2018 Inguinal hernia without ment ion of obstruction or gangrene, unilateral or unspecified, (not specified as recurrent) 03/19/2018 Unspecified hemorrhoids with out mention of complication 03/19/2018 Overview: Hemorrhoids documented as of this encounter (statuses as of 12/26/2022) [facility] Author Tej Rivera [facility] Note Date/Time September 07, 2024 1:40 pm [facility] Medical Records Department [address] [place] [address] Emergency Department Summary 09/07/24 MR#: [id number] Acct: [id number] Name: SUNDEEP LOPEZ Rep #:[id number] : 1950 73 From: Tej Rivera MD PCP: Dr. Magalys Larson MD Status:RE G ER Location: ED HPI History of Present Illness Chief Complaint: Edema Detail of Chief Complaint: Prevents from urgent care because of leg swelling andknee pain and swellin Informant: patient and spouse/S.O. Onset/Context/Timing Onset: - (Onset Friday) Context: Sudden Onset Timing: Continuous Quality: Initially pain in the knee followed by swelling of his right calf Location: Right lower extremity Current Severity: Mild Worsened by: Use up right knee Relieved by: Nothing, better with rest Associated Symptoms Associated Symptoms: No chest pain, shortness of breath or difficulty breathing. Narrative Narrative: Patient is a 73-year-old male who presents from urgent care. He went to urgent care in the person who saw him thought he needed a venous duplex study. Patientdenies any direct trauma. He has been riding his bicycle, stationary. He complains of pain anterior right knee. He also complains of pain medial right knee and proximal right leg anteriorly. He states the swelling started this weekend. He denies any pain in the calf. He denies paresthesia, anesthesia or motor weakness. He denies chest pain or shortness of breath. He denies dyspneawith activity. Prior similar symptoms: No Recent Illness/Hospitalization: No PFSH PFSH Medical History Personal history of colonic polyps Wears hearing aid Wears glasses Nervous Alcohol use CPAP (continuous positive airway pressure) dependence Non-smoker History of echocardiogram Barretts esophagus Dizziness History of CVA (cerebrovascular accident) Home Medications ?Medication ?Instructions ?Recorded ?Last Taken ?Type ibuprofen 200 mg tablet 200 mg PO Q4H PRN PRN Pain 0 06/30/14 Unknown History acetaminophen 325 mg tablet 650 mg PO ONCE PRN 5 Unknown History (Tylenol) Allergy/AdvReac Type Severity Reaction Status Date / Time No Known Allergies Allergy Verified 09/07/24 12:16 Family History Father Heart disease Hypertension High cholesterol Colon cancer Grandmother Colon cancer Surgical History History of esophagogastroduodenoscopy (EGD) Hx of colonoscopy History of repair of rotator cuff History of herniorrhaphy History of fundoplication Social History Smoking Status: Never smoker second hand exposure: No alcohol intake: current alcohol intake frequency: 0-2 drinks per day Alcohol type: beer substance use type: does not use caffeine: Yes what type of physical activity do you participate in: walking, running, bicycling and weight training frequency: 3-4 times per week seatbelt use: always ROS ROS ED Constitutional Constitutional ED: Denies chills, fever(s), subjective, sweats or weight loss Cardiovascular Cardiovascular: Denies chest pain or palpitations Respiratory/Chest Respiratory/Chest: Denies cough, dyspnea or dyspnea on exertion Musculoskeletal Musculoskeletal: Denies arthralgias or myalgias Integumentary Denies rash Neurologic Neurologic: Denies paresthesias or weakness Hematologic/Lymphatic Hematologic/Lymphatic: Reports systems reviewed and no addt'l complaints, exceptas documented EXAM Physical Exam Const Vital Signs: 09/07/24 12:14 Temperature 98.8 F Temperature Source Oral Pulse Rate 57 L Respiratory Rate 16 Blood Pressure 160/89 H Blood Pressure Mean 112 Pulse Ox 100 Oxygen Delivery Method Room Air Positive well nourished and well developed General Appearance ED: well developed and NAD; Negative for pallor HEENT Reports moist mucous membranes HEENT Narrative: Head is atraumatic and normocephalic. Eyes PERRL and EOMs intact bilaterally General Eye ED: Negative for pale conjunctiva or scleral icterus Resp normal respiratory effort and clear to auscultation bilaterally Cardio regular rate, regular rhythm, S1 normal heart sound, S2 normal heart sound and no murmurs Extremity Negative for normal to inspection Extremity Narrative: There is swelling of the right calf. There is also swelling anterior right knee. The patella is not ballotable. There is an effusion. Varus valgus stress testing causes slight discomfort over the MCL joint. There is no laxity appreciated. There is no tenderness along the joint line. Alonso's test was negative. Modified Jaylon's test is negative. There is no fullness or pain in the popliteal fossa. There is no pain involving the right calf. There is nobruising noted or evidence of trauma. DP and PT pulse are palpable. Neuro oriented x3 and CN's II-XII intact bilaterally Sensorium / Orientation: alert Psych mental status grossly normal Skin no rashes or lesions noted, no wounds and skin turgor normal General Skin Exam: elasticity normal; Negative for jaundice or pallor MDM MDM MDM Narrative Medical decision making narrative: Patient's Wells score for DVT is +2. Since he is moderate risk we will obtain venous duplex to rule out DVT. Venous duplex was in interpreted by crop and soil technician is negative. He did inform me of the fluid collection right medial leg. Radiography Chest X-Ray - ED: Read by ED Physician (4 view x-ray of the knee was independentreviewed interpreted by me as negative at 1320. There is no fracture, subluxation dislocation. There is no obvious degenerative changes noted.) Diagnostic Testing: Clinical Impression(s) from Imaging Studies Knee X-Ray 09/07/24 13:15 IMPRESSION: No fracture or dislocation is identified. Reading Location: [facility] was informed by the mortuary technician that the patient not have a DVT however there was a fluid collection medial proximal portion of the right knee. This is where he has tenderness. This appears to be blood. This would raise suspicion that patient has a muscle tear and reason for his swollen calf and leg. Discharge Plan Triage Chief Complaint: Edema ED Provider: Tej Rivera Dx/Rx/DC Orders Clinical Impression: Knee effusion, left, Gastrocnemius muscle tear Instructions: ED Knee Effusion, ED Muscle Strain, Extremity Prescriptions: No Action acetaminophen [Tylenol] 325 mg tablet 650 mg PO ONCE PRN ibuprofen 200 MG tablet 200 mg PO Q4H PRN PRN (Reason: Pain) Patient Comments: PAIN Primary Care Provider: Magalys Larson Referrals: Magalys Larson MD [Primary Care Provider] - 10-14 Days if not better Activity Restrictions/Additional Instructions: 1. Apply ice to your knee and 6-8 times a day. 2. Recommend not using your stationary or doing anything strenuous for the next1 to 2 weeks. Print Language: Lao Disposition Disposition: Home, Self Care What to do if you have Problems For any increased pain, shortness of breath, bleeding, nausea or vomiting, chestpain, or any unexpected problems, contact your Primary Care Provider. Call [facility] ([phone]) or report to the closest Emergency Room. Call 911 if necessary. 09/07/24 1340 <Electronically signed by Tej Rivera MD> Cosigner Signature (if applicable): CC: Dr. Magalys Larson MD ~ Signed [facility] Work Phone: Evaluation note* Diagnosis Wahl's esophagus determined by endoscopy- Primary Imbalance due to old stroke Need for vaccination Need for prophylactic vaccination and inoculation against unspecified single disease documented in this encounter [facility] noteNo assessment information [facility]WSouthwest [facility] Work Phone: Evaluation note* Diagnosis Wahl's esophagus determined by endoscopy- Primary Anxiety Anxiety state, unspecified EMERALD on CPAP Obstructive sleep apnea (adult) (pediatric) Midline low back pain without sciatica, unspecified chronicity Colon cancer screening Special screening for malignant neoplasms, colon Prostate cancer screening Special screening for malignant neoplasm of prostate Encounter for screening for diabetes mellitus Screening for diabetes mellitus documented in this encounter [facility] note* Diagnosis Need for influenza vaccination- Primary Need for prophylactic vaccination and inoculation against influenza [facility] Diagnosis Colon cancer screening Special screening for malignant neoplasms, colon Wahl's esophagus determined by endoscopy [facility] Diagnosis Heartburn- Primary Wahl's esophagus determined by endoscopy [facility] Diagnosis Wahl's esophagus determined by endoscopy- Primary [facility] Diagnosis 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 Other specified temporomandibular joint disorders EMERALD on CPAP Obstructive sleep apnea (adult) (pediatric) Stiffness of left hip joint Bilateral hearing loss, unspecified hearing loss type Balance disorder Other symptoms involving nervous and musculoskeletal systems Encounter for long-term current use of medication Screening for depression Encounter for screening examination for other mental health and behavioral disorders Encounter for immunization Need for other specified prophylactic vaccination against single bacterial disease documented in this encounter [facility] note* Diagnosis History of colonic polyps- Primary Personal history of colonic polyps Family history of colon cancer in father Screen for colon cancer Special screening for malignant neoplasms, colon [facility] Outpatient Procedure (Routine) - Authorized Specialty Diagnoses / Procedures Referred By Ghulam arrieta Referred To Contact [facility] Diagnoses Wahl's esophagus determined by endoscopy Procedures EGD DIAGNOSTIC ESOPHAGOGASTRODUODENOSC OPY TRANSORAL DIAGNOSTIC Alexandr Farris MD [address] [place] [address] [facility] [address] [place] [address] Referral ID Status Reason Start Date Expiration Date Visits Requested Visits Authorized [id number] Authorized Auto-Generat ed Referral 08/19/2023 08/18/2024 1 1 [facility] for referral (narrative)* Outpatient Procedure (Routine) - Closed Specialty Diagnoses / Procedures Referred By Ghulam arrieta Referred To Contact [facility] [place] Diagnoses Wahl's esophagus determined by endoscopy Procedures EGD DIAGNOSTIC ESOPHAGOGASTRODUODENOSC OPY TRANSORAL DIAGNOSTIC Alexandr Farris MD [address] [place] [address] [facility] [address] [place] [address] Referral ID Status Reason Start Date Expiration Date V isits Requested Visits Authorized [id number] Closed Auto-Generate d Referral 08/19/2023 08/18/2024 1 1 [facility] for referral (narrative)* Outpatient Procedure (Routine) - Authorized Specialty Diagnoses / Procedures Referred By Contac t Referred To Contact [facility] [place] Diagnoses History of colonic polyps Family history of colon cancer in father Screen for colon cancer Procedures COLONOSCOPY SCREENING COLONOSCOPY FLX DX W/COLLJ SPEC WHEN Latoya Hilliard APRN.CNP [address] [place] [address] [address] Referral ID Status Reason Start Date Expiration Date Visits Requested Visits Authorized [id number] Authorized Auto-Generat ed Referral 02/24/2024 02/23/2025 1 1 [facility] for referral (narrative)No reason for referral information [facility] Work Phone: Reason for visit Narrative* Outpatient Procedure (Routine) - Closed Specialty Diagnoses / Procedures Referred By Ghulam t Referred To Contact [facility] [place] Diagnoses Wahl's esophagus determined by endoscopy Procedures EGD DIAGNOSTIC ESOPHAGOGASTRODUODENOSC OPY TRANSORAL DIAGNOSTIC Alexandr Farris MD [address] [place] [address] [address] Referral ID Status Reason Start Date Expiration Date V isits Requested Visits Authorized [id number] Closed Auto-Generate d Referral 08/19/2023 08/18/2024 1 1 [facility] Summary Purpose Family History Relationship Condition Age at Onset Recorded Date/T concetta father Cardiac disease Unknown Hypertension Unknown High blood cholesterol Unknown Malignant neoplasm of colon Unknown Relationship Condition Age at Onset Recorded Date/T concetta father Cardiac disease Unknown Hypertension Unknown High blood cholesterol Unknown Malignant neoplasm of colon Unknown grandmother Malignant neoplasm of colon Unknown Advance Directives Advance Directive Response Recorded Date/ Time Advance Directives No July 06 9:38am Living Will No July 06, 2014 9 :38am Power of Plant Puller No July 06, 2014 9:38am Advance Directive Response Recorded Date/ Time Advance Directives No July 06 5 10:38am Advance Directive Response Recorded Date/ Time Do you have a Healthcare Power of Plant Puller? No September 07, 2024 1:48pm Advance Directives No July 06 10:38am Reason for Referral Specialty Diagnoses / Procedures Referred By Contac t Referred To Contact General Surgery Diagnoses Colon cancer screening Wahl's esophagus determined by endoscopy Procedures CONSULT TO GENERAL SURGERY OFFICE/OUTPATIENT [facility] 60-74 MINUTES Magalys Larson MD [address] [place] [address] Anthony Herzog MD [address] [place] [address] Referral ID Status Reason Start Date Expiration Date Visits Requested Visits Authorized [id number] Pending Review PCP Requested Referral 10/15/2022 10/15/2023 1 1 Chief Complaint and Reason for Visit Chief Complaint Admit Date Amb Documentation February 23, 2024 8: 50am WHEEZING June 01, 2024 9:4 9am Chief Complaint Admit Date WHEEZING June 01, 2024 9:4 9am EDEMA September 07, 2024 12:1 3pm Additional Source Comments (unrecognized sect ion and content) No Status Records FoundNo Status Records FoundNo Status Records FoundNo Status Records FoundNo Status Records Found INFORMATION SOURCE (unrecogn ized section and content) DATE CREATED AUTHOR 05/16/2020 [email or web address] DATE CREATED AUTHOR AUTHOR'S ORGANIZ ATION 05/19/2020 [facility] DATE CREATED AUTHOR AUTHOR'S ORGANIZ ATION 04/17/2024 [facility] DATE CREATED AUTHOR AUTHOR'S ORGANIZ ATION 05/13/2024 [facility] DATE CREATED AUTHOR AUTHOR'S ORGANIZ ATION 06/05/2024 [facility] Source Comments (unrecognize d section and content) In the event this informatio n is protected by the Federal Confidentiality of Alcohol and Drug Abuse Patient Records regulations: The Federal rules restrict any use of the information to criminally investigate or prosecute any alcohol or drug abuse patient.[facility] the event this information is protected by the Federal Confidentiality of Alcohol and Drug Abuse Patient Records regulations: The Federal rules restrict any use of the information to criminally investigate or prosecute any alcohol or drug abuse patient.[facility] the event this information is protected by the Federal Confidentiality of Alcohol and Drug Abuse Patient Records regulations: The Federal rules restrict any use of the information to criminally investigate or prosecute any alcohol or drug abuse patient.[facility] HospitalIn the event this information is protected by the Federal Confidentiality of Alcohol and Drug Abuse Patient Records regulations: The Federal rules restrict any use of the information to criminally investigate or prosecute any alcohol or drug abuse patient.[facility] Hospital[facility] the event this information is protected by the Federal Confidentiality of Alcohol and Drug Abuse Patient Records regulations: The Federal rules restrict any use of the information to criminally investigate or prosecute any alcohol or drug abuse patient.[facility] Hospital[facility] the event this information is protected by the Federal Confidentiality of Alcohol and Drug Abuse Patient Records regulations: The Federal rules restrict any use of the information to criminally investigate or prosecute any alcohol or drug abuse patient.[facility] Hospital[facility] the event this information is protected by the Federal Confidentiality of Alcohol and Drug Abuse Patient Records regulations: The Federal rules restrict any use of the information to criminally investigate or prosecute any alcohol or drug abuse patient.[facility] Hospital[facility] the event this information is protected by the Federal Confidentiality of Alcohol and Drug Abuse Patient Records regulations: The Federal rules restrict any use of the information to criminally investigate or prosecute any alcohol or drug abuse patient.[facility] Hospital[facility] the event this information is protected by the Federal Confidentiality of Alcohol and Drug Abuse Patient Records regulations: The Federal rules restrict any use of the information to criminally investigate or prosecute any alcohol or drug abuse patient.[facility] Reason for Visit (unrecogniz ed section and content) Reason Comments Establish Care Reason Comments Yearly Exam Reason Onset Date Comments Immunizations 12/25/2022 Flu vaccination Reason Comments Consult colonoscopy/EGD cons ult Specialty Diagnoses / Procedures Referred By Contac t Referred To Contact General Surgery Diagnoses Colon cancer screening Wahl's esophagus determined by endoscopy Procedures CONSULT TO GENERAL SURGERY OFFICE/OUTPATIENT NEW HIGH MDM 60-74 MINUTES Magalys Larson MD [address] [place] [address] Anthony Herzog MD [address] [place] [address] Referral ID Status Reason Start Date Expiration Date V isits Requested Visits Authorized [id number] Closed PCP Requested Referral 10/15/2022 10/15/2023 1 1 Reason Comments Follow Up 09/12/23 EGD follow u p Reason Comments Medicare Wellness Exam Reason Comments New Patient Consult - Colonoscop y consult Care Teams (unrecognized sec tion and content) Director General Relationship Specialty Start Date End Date Magalys Larson MD [address] [place] [address] PCP - General Internal Medicine 01/09/21 Director General Relationship Specialty Start Date End Date Magalys Larson MD [address] [place] [address] PCP - General Internal Medicine 01/09/21 Director General Relationship Specialty Start Date End Date Magalys Larson MD [address] [facility] [address] PCP - General Internal Medicine 01/09/21 Director General Relationship Specialty Start Date End Date Magalys Larson MD [address] [facility] [address] PCP - General Internal Medicine 01/09/21 Director General Relationship Specialty Start Date End Date Magalys Larson MD [address] [facility] [address] PCP - General Internal Medicine 01/09/21 Director General Relationship Specialty Start Date End Date Magalys Larson MD [address] [facility] [address] PCP - General Internal Medicine 01/09/21 Director General Relationship Specialty Start Date End Date Magalys Larson MD [address] [facility] [address] PCP - General Internal Medicine 01/09/21 Director General Relationship Specialty Start Date End Date Magalys Larson MD [address] [facility] [address] PCP - General Internal Medicine 01/09/21 Ankita Mehta APRN.[employer] [address] [facility] [place] [address] Public Relations Senior Associate Internal Medicine 01/26/24 Cyndie Ren APRN.[employer] [address] [place] [address] [facility] Internal Medicine 01/26/24 Director General Relationship Specialty Start Date End Date Magalys Larson MD [address] [facility] [place] [address] PCP - General Internal Medicine 01/09/21 Ankita Mheta, INSURANCE BILLER.[employer] [address] [place] [address] [facility] Internal Medicine 01/26/24 Cyndie Ren INSURANCE BILLER.[employer] LEADER [address] [facility] [place] [address] [facility] Internal Medicine 01/26/24 05/07/24 Cyndie Ren INSURANCE BILLER.[employer] LEADER [address] [place] [address] [facility] Internal Medicine 05/11/24 Team Status: Active Member Role Status Dates Dr. Juan Daniel Herzog III, MD Family Provider Active Dr. Magalys Larson MD Primary Care Provider Active Team Status: Active Member Role Status Dates Dr. Magalys Larson MD Primary Care Provider Active Start: February 23, 2024 [facility] Attending Provider Active Start: [facility] 2024 Team Status: Inactive Member Role Status Dates Dr. Magalys Larson MD Primary Care Provider Active Start: June 01, 2024 End: June 01, 2024 Dr. Anthony Smith MD Attending Provider Active Start: June 01, 2024 End: June 01, 2024 Dr. Anthony Smith MD Referring Provider Active Start: June 01, 2024 End: June 01, 2024 Team Status: Active Member Role/Relationship Status Dates Dr. Magalys Larson MD Primary Care Provider Active Team Status: Inactive Member Role/Relationship Status Dates Dr. Magalys Larson MD Primary Care Provider Active Start: June 01, 2024 End: June 01, 2024 Dr. Anthony Smith MD Attending Provider Active Start: June 01, 2024 End: June 01, 2024 Dr. Anthony Smith MD Referring Provider Active Start: June 01, 2024 End: June 01, 2024 Team Status: Inactive Member Role/Relationship Status Dates Dr. Magalys Larson MD Primary Care Provider Active Start: September 07, 2024 End: September 07, 2024 Dr. Tej Rivera MD Emergency Provider Active Sta rt: September 07, 2024 End: September 07, 2024 Goals (unrecognized section and content) Goals may be documented in a n alternate sectionGoals may be documented in an alternate sectionGoals may be documented in an alternate section FOR RECORDS PERTAINING TO PATIENTS WHO ARE [...] BE BASED ON THE PRIMARY CLINICAL RECORDS. [employer] provides no warranty or guarantee of the accuracy or completeness of information in this document.
== END 2024-09-07 13:50 | disposition home or self-care (01) ==
PROVIDERS: Emergency Provider Emergency Medicine; PCP Internal Medicine; Visit Provider Emergency Medicine
DX: M79.89 Other specified soft tissue disorders (principal); S86.119A Strain of other muscle(s) and tendon(s) of posterior muscle group at lower leg level, unspecified leg, initial encounter; M25.462 Effusion, left knee; Z86.73 Personal history of transient ischemic attack (TIA), and cerebral infarction without residual deficits
CPT/HCPCS: 73564; 93971; 99283